=== PATIENT | male | born 1965 | race Caucasian/White ===

== ENCOUNTER 2017-02-06 22:41 | Emergency (ER) | payer SELFPAY ==
[~2017-02-06] VITALS: Ht 177.8 cm; Wt 95.5 kg
[2017-02-06] MEDS ORDERED: HYDROmorphone 1 MG/ML, 1ML ONE (23:08)
[2017-02-06] MEDS ORDERED: KETOROLAC 30 MG/1 ML ONE (23:09)
[2017-02-06] MEDS ORDERED: KETOROLAC 30 MG/1 ML IV ONE (23:30)
[2017-02-06] MEDS ORDERED: PLEASE ENTER ALLERGIES MC SCH ×2 (23:30)
[2017-02-06] MEDS ORDERED: HYDROmorphone 1 MG/ML, 1ML IVPush PRN (23:30)
[2017-02-07 00:49] VITALS: BP 116/76
== END 2017-02-07 01:23 | disposition home or self-care (01) ==
LOC: ED 23:52
DX: S16.1XXA Strain of muscle, fascia and tendon at neck level, initial encounter (principal); S29.012A Strain of muscle and tendon of back wall of thorax, initial encounter; S39.012A Strain of muscle, fascia and tendon of lower back, initial encounter; Z86.73 Personal history of transient ischemic attack (TIA), and cerebral infarction without residual deficits; I25.2 Old myocardial infarction; X58.XXXA Exposure to other specified factors, initial encounter; Y93.89 Activity, other specified; Y99.8 Other external cause status; Y92.89 Other specified places as the place of occurrence of the external cause
CPT/HCPCS: 72125; 72131; 99284

== ENCOUNTER 2017-02-12 03:56 | Emergency (ER) | payer OTHER ==
[~2017-02-12] VITALS: Ht 180.3 cm; Wt 87.4 kg
[2017-02-12] MEDS ORDERED: KETOROLAC 30 MG/1 ML IM ONE (05:00)
[2017-02-12] MEDS ORDERED: KETOROLAC 30 MG/1 ML ONE (05:03)
[2017-02-12 05:37] VITALS: BP 150/84
== END 2017-02-12 05:39 | disposition home or self-care (01) ==
LOC: ED 05:09
DX: Z76.0 Encounter for issue of repeat prescription (principal); M1A.9XX0 Chronic gout, unspecified, without tophus (tophi); M13.0 Polyarthritis, unspecified; Z86.73 Personal history of transient ischemic attack (TIA), and cerebral infarction without residual deficits
CPT/HCPCS: 96372; 99283; J1885

== ENCOUNTER 2017-11-23 04:49 | Inpatient (IN) | payer MEDICAID, OTHER ==
[~2017-11-23] VITALS: Ht 180.3 cm; Wt 90.0 kg
[2017-11-23] MEDS ORDERED: SODIUM CHLORIDE 0.9% 1,000 ML IV ONE (05:14)
[2017-11-23] MEDS ORDERED: SODIUM CHLORIDE FLUSH 10ML SYR IVF ONE (05:30)
[2017-11-23] MEDS ORDERED: MORPHINE SULFATE 4 MG/ML, 1ML ONE ×2 (06:18→07:29)
[2017-11-23] MEDS: MORPHINE SULFATE 4 MG/ML, 1ML IVPush PRN ×2 (06:22→07:33)
[2017-11-23 06:38] LABS: BASOPHILS # (AUTO) 0.05 x10^3/uL (0-0.1); BASOPHILS % (AUTO) 1 % (0-1); EOSINOPHILS # (AUTO) 0.07 x10^3/uL (0-0.4); EOSINOPHILS % (AUTO) 1 % (1-7); LYMPHOCYTES # (AUTO) 1.68 x10^3/uL (1-3.4); LYMPHOCYTES % (AUTO) 16 % (22-44); MD NO; MEAN CORPUSCULAR HEMOGLOBIN 33.7 pg (27.5-34.5); MEAN CORPUSCULAR HGB CONC 34.1 g/dL (33.2-36.2); MEAN CORPUSCULAR VOLUME 98.8 fL (81-97); MEAN PLATELET VOLUME 7.7 fL (7.4-10.4); MONOCYTES # (AUTO) 1.23 x10^3/uL (0.2-0.8); MONOCYTES % (AUTO) 11 % (2-9); NEUTROPHILS # (AUTO) 7.83 x10^3/uL (1.8-6.8); NEUTROPHILS % (AUTO) 72 % (42-75); PLATELET COUNT 195 x10^3/uL (130-400); RED BLOOD COUNT 4.58 x10^6/uL (4.38-5.82); RED CELL DISTRIBUTION WIDTH 14.7 % (9.4-14.8)
[2017-11-23 06:49] LABS: ALBUMIN 3.1 g/dL (3.4-5.0); ANION GAP 12 mmol/L (5-15); CALCIUM 8.8 mg/dL (8.5-10.1); CHLORIDE 99 mmol/L (98-107)
[2017-11-23 06:52] LABS: CREATININE 0.75 mg/dL (0.7-1.3)
[2017-11-23 06:53] LABS: ALANINE AMINOTRANSFERASE 33 U/L (12-78); ALKALINE PHOSPHATASE 119 U/L (45-117); BILIRUBIN,TOTAL 1.7 mg/dL (0.2-1.0); TOTAL PROTEIN 7.8 g/dL (6.4-8.2)
[2017-11-23] MEDS ORDERED: GADOBUTROL 7.5 MMOL/7.5 ML PFS ONE (07:13)
[2017-11-23 07:16] LABS: HCT (SEDRATE) 45.3 % (39.2-51.8)
[2017-11-23] MEDS ORDERED: AMPICILLIN/SULBACTAM 3 GM in SODIUM CHLORIDE 0.9% 100 ML IV ONE (09:00)
[2017-11-23 09:29] VITALS: BP 158/98
[2017-11-23 10:52] VITALS: BP 158/98
[2017-11-23] MEDS ORDERED: LABETALOL 5MG/ML, 20ML IVPush PRN (12:00)
[2017-11-23] MEDS ORDERED: ENALAPRILAT 1.25 MG/ML, 2ML IVPush PRN (12:00)
[2017-11-23] MEDS ORDERED: ACETAMINOPHEN 325 MG TABLET PO PRN (12:00)
[2017-11-23] MEDS ORDERED: LORazepam 2 MG/ML, 1ML IVPush ONE (12:00)
[2017-11-23] MEDS: NICOTINE 14MG/24 HR PATCH.TD24 TD SCH (12:22)
[2017-11-23] MEDS: HYDROcodone/APAP 5/325 TABLET PO PRN (13:18)
[2017-11-23 14:18] VITALS: BP 130/83
[2017-11-23] MEDS ORDERED: ALLO100T30 PO (14:38)
[2017-11-23] MEDS ORDERED: LISI-424 PO (14:38)
[2017-11-23] MEDS ORDERED: AMPICILLIN/SULBACTAM 3 GM in SODIUM CHLORIDE 0.9% 100 ML IV SCH (15:00)
[2017-11-23] MEDS ORDERED: KETOROLAC 30 MG/1 ML IVPush PRN (16:30)
[2017-11-23 16:44] LABS: CHOL/HDL RATIO 3.7; LDL/HDL RATIO 2.2 (0.5-3.0)
[2017-11-23] MEDS: METHOCARBAMOL 750 MG TABLET PO SCH ×2 (16:44→22:09)
[2017-11-23] MEDS: AMPICILLIN/SULBACTAM 3 GM in SODIUM CHLORIDE 0.9% 100 ML IV SCH (18:21)
[2017-11-23 18:42] VITALS: BP 117/77
[2017-11-23 18:57] LABS: AMPHETAMINE SCREEN, URINE Negative (Negative); BARBITURATE SCREEN, URINE Negative (Negative); BENZODIAZEPINE SCREEN, URINE Negative (Negative); CANNABINOID SCREEN, URINE Negative (Negative); COCAINE SCREEN, URINE Negative (Negative); METHADONE SCREEN, URINE Negative (Negative); OPIATE SCREEN, URINE Positive (Negative)
[2017-11-23] MEDS ORDERED: DOCUSATE 50 MG/5 ML, 10ML UDC PO PRN (22:00)
[2017-11-23 22:48] LABS: PROTHROMBIN TIME 10.4 Seconds (9.6-11.5)
[2017-11-24] MEDS: AMPICILLIN/SULBACTAM 3 GM in SODIUM CHLORIDE 0.9% 100 ML IV SCH (01:14)
[2017-11-24 01:23] VITALS: BP 127/83
[2017-11-24] MEDS: HYDROcodone/APAP 5/325 TABLET PO PRN ×4 (01:43→21:02)
[2017-11-24 05:51] LABS: BASOPHILS # (AUTO) 0.01 x10^3/uL (0-0.1); BASOPHILS % (AUTO) 0 % (0-1); EOSINOPHILS # (AUTO) 0.11 x10^3/uL (0-0.4); EOSINOPHILS % (AUTO) 1 % (1-7); LYMPHOCYTES # (AUTO) 1.58 x10^3/uL (1-3.4); LYMPHOCYTES % (AUTO) 20 % (22-44); MD NO; MEAN CORPUSCULAR HEMOGLOBIN 32.9 pg (27.5-34.5); MEAN CORPUSCULAR HGB CONC 33.5 g/dL (33.2-36.2); MEAN CORPUSCULAR VOLUME 98.2 fL (81-97); MEAN PLATELET VOLUME 7.5 fL (7.4-10.4); MONOCYTES % (AUTO) 12 % (2-9); NEUTROPHILS # (AUTO) 5.39 x10^3/uL (1.8-6.8); NEUTROPHILS % (AUTO) 67 % (42-75); PLATELET COUNT 224 x10^3/uL (130-400); RED BLOOD COUNT 4.27 x10^6/uL (4.38-5.82); RED CELL DISTRIBUTION WIDTH 14.3 % (9.4-14.8)
[2017-11-24 05:55] LABS: ANION GAP 9 mmol/L (5-15); CALCIUM 8.5 mg/dL (8.5-10.1); CHLORIDE 102 mmol/L (98-107)
[2017-11-24 05:58] LABS: CREATININE 0.82 mg/dL (0.7-1.3)
[2017-11-24 07:35] VITALS: BP 120/85
[2017-11-24] MEDS ORDERED: MIDAZOLAM 1 MG/ML, 5ML ONE (08:12)
[2017-11-24] MEDS ORDERED: NALOXONE 1 MG/ML, 2ML ONE (08:12)
[2017-11-24] MEDS ORDERED: FLUMAZENIL 0.1 MG/1 ML, 5ML ONE (08:12)
[2017-11-24] MEDS ORDERED: FENTANYL PF 100 MCG/2ML ONE (08:12)
[2017-11-24] MEDS ORDERED: LISINOPRIL 5 MG TABLET PO SCH (09:00)
[2017-11-24] MEDS ORDERED: ALLOPURINOL 100 MG TABLET PO SCH (09:00)
[2017-11-24] MEDS ORDERED: GADOBUTROL 10 MMOL/10 ML VIAL ONE (09:44)
[2017-11-24 10:20] VITALS: BP 118/84
[2017-11-24] MEDS: METHOCARBAMOL 750 MG TABLET PO SCH ×3 (11:24→21:01)
[2017-11-24] MEDS: NICOTINE 14MG/24 HR PATCH.TD24 TD SCH (11:24)
[2017-11-24] MEDS: COLCHICINE 0.6 MG TABLET PO SCH ×3 (11:53→21:01)
[2017-11-24] MEDS: CEPHALEXIN 500 MG CAPSULE PO SCH ×3 (11:53→23:18)
[2017-11-24 13:02] VITALS: BP 117/89
[2017-11-24 19:09] VITALS: BP 164/68
[2017-11-25 00:13] VITALS: BP 130/90
[2017-11-25 00:24] VITALS: BP 115/71
[2017-11-25] MEDS: HYDROcodone/APAP 5/325 TABLET PO PRN ×2 (01:52→05:51)
[2017-11-25 04:07] VITALS: BP 102/62
[2017-11-25] MEDS: CEPHALEXIN 500 MG CAPSULE PO SCH ×2 (05:50→11:49)
[2017-11-25 07:39] VITALS: BP 115/80
[2017-11-25] MEDS ORDERED: LOSA50TA2 PO (08:34)
[2017-11-25] MEDS ORDERED: COLC0.6T37 PO (08:34)
[2017-11-25] MEDS ORDERED: METH750T2 PO (08:34)
[2017-11-25] MEDS ORDERED: ALLO100T30 PO (08:34)
[2017-11-25] MEDS ORDERED: CEPH-376 PO (08:34)
[2017-11-25] MEDS ORDERED: LOSARTAN 50MG TABLET PO SCH (09:00)
[2017-11-25] MEDS: COLCHICINE 0.6 MG TABLET PO SCH (09:52)
[2017-11-25] MEDS: METHOCARBAMOL 750 MG TABLET PO SCH (09:52)
[2017-11-25] MEDS ORDERED: SIMV20TA3 PO (10:04)
[2017-11-25] MEDS: NICOTINE 14MG/24 HR PATCH.TD24 TD SCH (11:50)
[2017-11-25 14:55] VITALS: BP 132/80
[2017-11-25] MEDS ORDERED: SIMVASTATIN 20 MG TABLET PO SCH (21:00)
[2017-11-25] MEDS ORDERED: LISINOPRIL 5 MG TABLET PO SCH (21:00)
== END 2017-11-25 17:28 | disposition home or self-care (01) | DRG 872 ==
LOC: ED 08:08 → 3NE 08:09 → ED 08:31
PROVIDERS: ADMIT Hospitalist; ATTEND Internal Medicine
DX: A41.9 Sepsis, unspecified organism (principal); E44.0 Moderate protein-calorie malnutrition; E87.1 Hypo-osmolality and hyponatremia; G95.89 Other specified diseases of spinal cord; L03.113 Cellulitis of right upper limb; R17 Unspecified jaundice; M51.06 Intervertebral disc disorders with myelopathy, lumbar region; Z68.27 Body mass index [BMI] 27.0-27.9, adult; F17.210 Nicotine dependence, cigarettes, uncomplicated; G89.29 Other chronic pain; M50.30 Other cervical disc degeneration, unspecified cervical region; I25.2 Old myocardial infarction; I10 Essential (primary) hypertension; M17.12 Unilateral primary osteoarthritis, left knee; M1A.9XX1 Chronic gout, unspecified, with tophus (tophi); M25.78 Osteophyte, vertebrae; M48.02 Spinal stenosis, cervical region; M48.061 Spinal stenosis, lumbar region without neurogenic claudication; Z74.01 Bed confinement status; Z83.3 Family history of diabetes mellitus; Z86.73 Personal history of transient ischemic attack (TIA), and cerebral infarction without residual deficits; Z91.19 Patient's noncompliance with other medical treatment and regimen; Z98.1 Arthrodesis status; Z80.41 Family history of malignant neoplasm of ovary
CPT/HCPCS: 36415; 72050; 72156; 72157; 72158; 80048; 80053; 80061; 80307; 83605; 84550; 85025; 85610; 85651; 85730; 86140; 87040; 93005; 96374; 96376; 99156; 99157; 99285; A9585; J0295; J1885; J2250; J3010; J2060; J2310; J7030

== ENCOUNTER 2017-12-09 17:28 | Emergency (ER) | payer SELFPAY ==
[~2017-12-09] VITALS: Ht 180.3 cm; Wt 85.7 kg
[~2017-12-09 17:28] MED LIST: ALLO100T30 PO; CEPH-376 PO; COLC0.6T37 PO; LISI-424 PO; LOSA50TA2 PO; METH750T2 PO; SIMV20TA3 PO
[2017-12-09 17:31] VITALS: BP 151/93
== END 2017-12-09 18:31 | disposition home or self-care (01) ==
LOC: ED 18:25
DX: G89.29 Other chronic pain (principal); M54.2 Cervicalgia; M10.9 Gout, unspecified; M25.531 Pain in right wrist; Z86.73 Personal history of transient ischemic attack (TIA), and cerebral infarction without residual deficits; I25.2 Old myocardial infarction
CPT/HCPCS: 99281

== ENCOUNTER 2017-12-16 18:06 | Inpatient (IN) | payer SELFPAY ==
[2017-12-15 14:00] VITALS: BP 149/92
[~2017-12-16] VITALS: Ht 180.3 cm; Wt 88.6 kg
[2017-12-16] MEDS ORDERED: KETOROLAC 30 MG/1 ML ONE (18:54)
[2017-12-16 18:59] LABS: BASOPHILS # (AUTO) 0.07 x10^3/uL (0-0.1); BASOPHILS % (AUTO) 1 % (0-1); EOSINOPHILS # (AUTO) 0.13 x10^3/uL (0-0.4); EOSINOPHILS % (AUTO) 2 % (1-7); LYMPHOCYTES # (AUTO) 1.51 x10^3/uL (1-3.4); LYMPHOCYTES % (AUTO) 19 % (22-44); MD NO; MEAN CORPUSCULAR HEMOGLOBIN 33.6 pg (27.5-34.5); MEAN CORPUSCULAR VOLUME 95.9 fL (81-97); MEAN PLATELET VOLUME 7.5 fL (7.4-10.4); MONOCYTES # (AUTO) 0.58 x10^3/uL (0.2-0.8); MONOCYTES % (AUTO) 7 % (2-9); NEUTROPHILS # (AUTO) 5.55 x10^3/uL (1.8-6.8); NEUTROPHILS % (AUTO) 71 % (42-75); PLATELET COUNT 161 x10^3/uL (130-400); RED BLOOD COUNT 4.61 x10^6/uL (4.38-5.82); RED CELL DISTRIBUTION WIDTH 14.4 % (9.4-14.8)
[2017-12-16] MEDS ORDERED: SODIUM CHLORIDE FLUSH 10ML SYR IVF ONE (19:00)
[2017-12-16] MEDS ORDERED: AMPICILLIN/SULBACTAM 3 GM in SODIUM CHLORIDE 0.9% 100 ML IVPB ONE (19:00)
[2017-12-16] MEDS ORDERED: KETOROLAC 30 MG/1 ML IVPush ONE (19:00)
[2017-12-16 19:08] LABS: ALBUMIN 3.3 g/dL (3.4-5.0); ANION GAP 10 mmol/L (5-15); CALCIUM 8.7 mg/dL (8.5-10.1); CHLORIDE 104 mmol/L (98-107); CREATININE 0.92 mg/dL (0.7-1.3)
[2017-12-16] MEDS ORDERED: COLCHICINE 0.6 MG TABLET PO ONE (19:30)
[2017-12-16 21:30] VITALS: BP 142/100
[2017-12-16] MEDS: NICOTINE 21 MG/24 HR PATCH.TD24 TD SCH (21:30)
[2017-12-16] MEDS ORDERED: ONDANSETRON 2MG/ML, 2ML IVPush PRN (21:30)
[2017-12-16] MEDS ORDERED: POLYETHYLENE GLYCOL 17 GM PACKET PO PRN (21:30)
[2017-12-16] MEDS ORDERED: ACETAMINOPHEN 325 MG TABLET PO PRN (21:30)
[2017-12-16] MEDS ORDERED: POTASSIUM CHLORIDE 20 MEQ TAB.ER.PRT PO ONE (21:30)
[2017-12-16] MEDS ORDERED: BISACODYL 10 MG SUPP PR PRN (21:30)
[2017-12-16] MEDS: SODIUM CHLORIDE FLUSH 10ML SYR IVF SCH (22:41)
[2017-12-16] MEDS: SIMVASTATIN 20 MG TABLET PO SCH (22:42)
[2017-12-16] MEDS: morphine SULFATE 10 MG/ML, 1ML IVPush PRN (22:42)
[2017-12-16] MEDS: HEPARIN 5,000 UNITS/ML, 1ML SQ SCH (22:42)
[2017-12-16 23:14] VITALS: BP 142/100
[2017-12-17] MEDS: AMPICILLIN/SULBACTAM 3 GM in SODIUM CHLORIDE 0.9% 100 ML IV SCH ×4 (00:31→18:10)
[2017-12-17 03:40] VITALS: BP 160/107
[2017-12-17 04:25] LABS: BASOPHILS # (AUTO) 0.01 x10^3/uL (0-0.1); BASOPHILS % (AUTO) 0 % (0-1); EOSINOPHILS % (AUTO) 0 % (1-7); LYMPHOCYTES # (AUTO) 0.55 x10^3/uL (1-3.4); LYMPHOCYTES % (AUTO) 10 % (22-44); MD NO; MEAN CORPUSCULAR VOLUME 97.2 fL (81-97); MEAN PLATELET VOLUME 7.8 fL (7.4-10.4); MONOCYTES # (AUTO) 0.14 x10^3/uL (0.2-0.8); MONOCYTES % (AUTO) 2 % (2-9); NEUTROPHILS # (AUTO) 4.94 x10^3/uL (1.8-6.8); NEUTROPHILS % (AUTO) 88 % (42-75); PLATELET COUNT 150 x10^3/uL (130-400); RED BLOOD COUNT 4.54 x10^6/uL (4.38-5.82); RED CELL DISTRIBUTION WIDTH 14.2 % (9.4-14.8)
[2017-12-17] MEDS: morphine SULFATE 10 MG/ML, 1ML IVPush PRN ×2 (04:27→09:11)
[2017-12-17 04:56] LABS: ALANINE AMINOTRANSFERASE 29 U/L (12-78); ALKALINE PHOSPHATASE 127 U/L (45-117); BILIRUBIN,TOTAL 1.2 mg/dL (0.2-1.0); CREATININE 0.95 mg/dL (0.7-1.3); TOTAL PROTEIN 7.7 g/dL (6.4-8.2)
[2017-12-17 05:17] LABS: ALBUMIN 3.2 g/dL (3.4-5.0); ANION GAP 5 mmol/L (5-15); CALCIUM 8.8 mg/dL (8.5-10.1); CHLORIDE 105 mmol/L (98-107)
[2017-12-17 08:00] VITALS: BP 141/96
[2017-12-17] MEDS: SODIUM CHLORIDE FLUSH 10ML SYR IVF SCH ×2 (09:00→19:32)
[2017-12-17] MEDS: ALLOPURINOL 300 MG TABLET PO SCH (09:10)
[2017-12-17] MEDS: COLCHICINE 0.6 MG TABLET PO SCH ×2 (09:10→19:30)
[2017-12-17] MEDS: SENNA/DOCUSATE TABLET PO SCH (09:10)
[2017-12-17] MEDS: LOSARTAN 50MG TABLET PO SCH (09:10)
[2017-12-17] MEDS: HEPARIN 5,000 UNITS/ML, 1ML SQ SCH ×3 (09:11→22:40)
[2017-12-17] MEDS ORDERED: GADOBUTROL 10 MMOL/10 ML PFS ONE (11:13)
[2017-12-17 14:00] VITALS: BP 138/84
[2017-12-17 19:03] VITALS: BP 146/85
[2017-12-17] MEDS: NICOTINE 21 MG/24 HR PATCH.TD24 TD SCH (19:30)
[2017-12-17] MEDS: SIMVASTATIN 20 MG TABLET PO SCH (19:30)
[2017-12-17] MEDS: HYDROcodone/APAP 5/325 TABLET PO PRN (19:30)
[2017-12-18] MEDS: AMPICILLIN/SULBACTAM 3 GM in SODIUM CHLORIDE 0.9% 100 ML IV SCH ×4 (00:22→18:08)
[2017-12-18 01:21] VITALS: BP 170/95
[2017-12-18] MEDS: HYDROcodone/APAP 5/325 TABLET PO PRN ×3 (02:30→21:11)
[2017-12-18] MEDS: ASPIRIN 81 MG TABLET EC PO SCH (05:07)
[2017-12-18 07:12] VITALS: BP 159/106
[2017-12-18] MEDS: HEPARIN 5,000 UNITS/ML, 1ML SQ SCH ×3 (08:11→21:11)
[2017-12-18] MEDS: LOSARTAN 50MG TABLET PO SCH (08:11)
[2017-12-18] MEDS: SENNA/DOCUSATE TABLET PO SCH (08:11)
[2017-12-18] MEDS: ALLOPURINOL 300 MG TABLET PO SCH (08:11)
[2017-12-18] MEDS: COLCHICINE 0.6 MG TABLET PO SCH ×2 (08:11→21:11)
[2017-12-18] MEDS: SODIUM CHLORIDE FLUSH 10ML SYR IVF SCH ×2 (08:11→21:00)
[2017-12-18 12:09] VITALS: BP 159/106
[2017-12-18] MEDS: METOPROLOL TARTRATE 25 MG TABLET PO SCH ×2 (12:35→18:08)
[2017-12-18] MEDS: METHOCARBAMOL 500 MG TABLET PO PRN ×2 (12:35→18:08)
[2017-12-18 19:06] VITALS: BP 134/83
[2017-12-18] MEDS: NICOTINE 21 MG/24 HR PATCH.TD24 TD SCH (21:11)
[2017-12-18] MEDS: SIMVASTATIN 20 MG TABLET PO SCH (21:11)
[2017-12-19] VITALS (8 sets, daily range): BP systolic 153–192; BP diastolic 100–110
[2017-12-19] MEDS: AMPICILLIN/SULBACTAM 3 GM in SODIUM CHLORIDE 0.9% 100 ML IV SCH ×2 (01:23→06:34)
[2017-12-19] MEDS: METHOCARBAMOL 500 MG TABLET PO PRN (01:27)
[2017-12-19] MEDS: HYDROcodone/APAP 5/325 TABLET PO PRN ×2 (02:14→08:20)
[2017-12-19] MEDS ORDERED: AMLODIPINE 5 MG TABLET PO ONE (03:30)
[2017-12-19] MEDS: ASPIRIN 81 MG TABLET EC PO SCH (05:14)
[2017-12-19] MEDS: METOPROLOL TARTRATE 25 MG TABLET PO SCH (05:14)
[2017-12-19] MEDS: HEPARIN 5,000 UNITS/ML, 1ML SQ SCH (05:15)
[2017-12-19] MEDS: morphine SULFATE 10 MG/ML, 1ML IVPush PRN (05:25)
[2017-12-19] MEDS: LOSARTAN 50MG TABLET PO SCH (06:34)
[2017-12-19] MEDS ORDERED: HYDR-3240 PO (07:49)
[2017-12-19] MEDS ORDERED: ALLO100T30 PO (07:49)
[2017-12-19] MEDS ORDERED: AMOX1TAB64 PO (07:49)
[2017-12-19] MEDS ORDERED: METO25TA2 PO (07:49)
[2017-12-19] MEDS ORDERED: COLC0.6T37 PO (07:49)
[2017-12-19] MEDS ORDERED: LOSA50TA2 PO (07:49)
[2017-12-19] MEDS ORDERED: SIMV20TA3 PO (07:49)
[2017-12-19] MEDS ORDERED: IBUP-1222 PO (07:53)
[2017-12-19] MEDS: SENNA/DOCUSATE TABLET PO SCH (08:20)
[2017-12-19] MEDS: SODIUM CHLORIDE FLUSH 10ML SYR IVF SCH (08:21)
[2017-12-19] MEDS: ALLOPURINOL 300 MG TABLET PO SCH (08:21)
[2017-12-19] MEDS: COLCHICINE 0.6 MG TABLET PO SCH (08:21)
[2017-12-19] MEDS ORDERED: LOSARTAN 50MG TABLET PO SCH (09:00)
== END 2017-12-19 10:54 | disposition home or self-care (01) | DRG 603 ==
LOC: ED 20:19 → EDIP 20:48 → 3NE 21:23
PROVIDERS: ADMIT Internal Medicine; ATTEND Internal Medicine
DX: L03.113 Cellulitis of right upper limb (principal); E44.1 Mild protein-calorie malnutrition; M19.90 Unspecified osteoarthritis, unspecified site; I25.2 Old myocardial infarction; M1A.9XX1 Chronic gout, unspecified, with tophus (tophi); F17.210 Nicotine dependence, cigarettes, uncomplicated; M48.00 Spinal stenosis, site unspecified; I10 Essential (primary) hypertension; I25.10 Atherosclerotic heart disease of native coronary artery without angina pectoris; Z60.2 Problems related to living alone; E87.6 Hypokalemia; R00.0 Tachycardia, unspecified; M10.9 Gout, unspecified; Z86.73 Personal history of transient ischemic attack (TIA), and cerebral infarction without residual deficits; Z83.3 Family history of diabetes mellitus; Z79.899 Other long term (current) drug therapy; Z68.27 Body mass index [BMI] 27.0-27.9, adult
CPT/HCPCS: 36415; 80048; 80053; 82040; 84550; 85025; 87040; 96365; 96375; A9585; J0295; J1644; J1885; J2270; J7512

== ENCOUNTER 2018-01-14 21:12 | Emergency (ER) | payer SELFPAY ==
[~2018-01-14] VITALS: Ht 180.3 cm; Wt 79.5 kg
[~2018-01-14 21:12] MED LIST changes: +AMOX1TAB64 PO; +HYDR-3240 PO; +IBUP-1222 PO; +METO25TA2 PO
[2018-01-15 01:44] VITALS: BP 108/81
== END 2018-01-15 02:35 | disposition home or self-care (01) ==
LOC: ED 23:59
DX: F10.129 Alcohol abuse with intoxication, unspecified (principal); I25.2 Old myocardial infarction; Z86.73 Personal history of transient ischemic attack (TIA), and cerebral infarction without residual deficits; M19.90 Unspecified osteoarthritis, unspecified site; F17.200 Nicotine dependence, unspecified, uncomplicated
CPT/HCPCS: 99283

== ENCOUNTER 2018-02-06 04:27 | Emergency (ER) | payer MEDICAID, OTHER ==
[~2018-02-06] VITALS: Ht 180.3 cm; Wt 91.9 kg
[2018-02-06] MEDS ORDERED: ONDANSETRON ODT 4 MG PO ONE (05:00)
[2018-02-06] MEDS ORDERED: ONDANSETRON ODT 4 MG ONE (05:30)
[2018-02-06 05:35] LABS: BASOPHILS # (AUTO) 0.05 x10^3/uL (0-0.1); BASOPHILS % (AUTO) 1 % (0-1); EOSINOPHILS # (AUTO) 0.34 x10^3/uL (0-0.4); EOSINOPHILS % (AUTO) 4 % (1-7); LYMPHOCYTES # (AUTO) 3.06 x10^3/uL (1-3.4); LYMPHOCYTES % (AUTO) 38 % (22-44); MD NO; MEAN CORPUSCULAR HEMOGLOBIN 34.1 pg (27.5-34.5); MEAN CORPUSCULAR HGB CONC 34.1 g/dL (33.2-36.2); MEAN PLATELET VOLUME 7.4 fL (7.4-10.4); MONOCYTES # (AUTO) 0.53 x10^3/uL (0.2-0.8); MONOCYTES % (AUTO) 7 % (2-9); NEUTROPHILS # (AUTO) 3.99 x10^3/uL (1.8-6.8); NEUTROPHILS % (AUTO) 50 % (42-75); PLATELET COUNT 208 x10^3/uL (130-400); RED BLOOD COUNT 3.98 x10^6/uL (4.38-5.82); RED CELL DISTRIBUTION WIDTH 15.8 % (9.4-14.8)
[2018-02-06 05:46] LABS: ANION GAP 13 mmol/L (5-15); CALCIUM 8.7 mg/dL (8.5-10.1); CHLORIDE 104 mmol/L (98-107); CREATININE 0.85 mg/dL (0.7-1.3)
[2018-02-06] MEDS ORDERED: SODIUM CHLORIDE 0.9% 1,000ML IVBOLUS ONE (06:30)
[2018-02-06] MEDS ORDERED: SODIUM CHLORIDE FLUSH 10ML SYR IVF ONE (06:30)
[2018-02-06] MEDS ORDERED: IBUPROFEN 200 MG TABLET PO ONE (08:00)
[2018-02-06] MEDS ORDERED: IBUPROFEN 200 MG TABLET ONE (08:10)
[2018-02-06 09:07] VITALS: BP 120/76
== END 2018-02-06 09:41 | disposition home or self-care (01) ==
LOC: ED 06:12
DX: S39.012A Strain of muscle, fascia and tendon of lower back, initial encounter (principal); F10.220 Alcohol dependence with intoxication, uncomplicated; R19.7 Diarrhea, unspecified; R11.0 Nausea; Z88.5 Allergy status to narcotic agent; Z86.73 Personal history of transient ischemic attack (TIA), and cerebral infarction without residual deficits; X58.XXXA Exposure to other specified factors, initial encounter; Y93.89 Activity, other specified; Y92.89 Other specified places as the place of occurrence of the external cause; Y99.8 Other external cause status
CPT/HCPCS: 36415; 80048; 80307; 85025; 96360; 99284; J7030; Q0162

== ENCOUNTER 2018-02-25 21:54 | Emergency (ER) | payer OTHER ==
[~2018-02-25] VITALS: Ht 180.3 cm; Wt 83.7 kg
[2018-02-26 04:00] VITALS: BP 105/68
== END 2018-02-26 04:44 | disposition home or self-care (01) ==
LOC: ED 21:59
DX: F10.220 Alcohol dependence with intoxication, uncomplicated (principal); I25.2 Old myocardial infarction; F17.200 Nicotine dependence, unspecified, uncomplicated; Z86.73 Personal history of transient ischemic attack (TIA), and cerebral infarction without residual deficits
CPT/HCPCS: 99283

== ENCOUNTER 2018-08-08 02:48 | Emergency (ER) | payer MEDICAID ==
[~2018-08-08] VITALS: Ht 180.3 cm; Wt 93.0 kg
--- NOTE | 2018-08-08 02:58 | NUR ---
bib [facility] for joint pain from hips down, h/x gout, received 100 fentanyl and 1 versed per emt. fsbs-118, b/p-131/87, hr-90, 98% r/a. monitors applied, siderails up x2, call light within reach. pa at bedside for eval
[2018-08-08] MEDS ORDERED: METO200T47 PO (02:59)
[2018-08-08] MEDS ORDERED: KETOROLAC 30 MG/1 ML ONE (03:09)
--- NOTE | 2018-08-08 03:18 | NUR ---
pt medicated per mar
[2018-08-08 03:20] VITALS: BP 143/98
--- NOTE | 2018-08-08 03:23 | NUR ---
smh at bed side given report
--- NOTE | 2018-08-08 03:25 | NUR ---
pt requesting to speak with md, juan notified and at pt's bedside
[2018-08-08] MEDS ORDERED: KETOROLAC 30 MG/1 ML IM ONE (03:30)
== END 2018-08-08 03:34 | disposition home or self-care (01) ==
LOC: ED 02:51
DX: M25.551 Pain in right hip (principal); M25.561 Pain in right knee; M25.571 Pain in right ankle and joints of right foot; M25.552 Pain in left hip; M25.562 Pain in left knee; M25.572 Pain in left ankle and joints of left foot; F17.210 Nicotine dependence, cigarettes, uncomplicated; I25.2 Old myocardial infarction
CPT/HCPCS: 96372; 99283; J1885; J7512

== ENCOUNTER 2018-08-19 15:43 | Emergency (ER) | payer MEDICAID ==
[~2018-08-19] VITALS: Ht 180.3 cm; Wt 89.3 kg
[~2018-08-19 15:43] MED LIST changes: +METO200T47 PO
[2018-08-19] MEDS ORDERED: SODIUM CHLORIDE FLUSH 10ML SYR IVF ONE (16:00)
[2018-08-19] MEDS ORDERED: SODIUM CHLORIDE 0.9% 1,000ML IVBOLUS ONE (16:00)
--- NOTE | 2018-08-19 16:28 | NUR ---
PT PRESENTING TO ER FOR STERNAL CP TIGHTNESS X2 DAYS WITH PRODUCTIVE COUGH AND SOB. PT ADMITTED 3 MONTHS AGO FOR PNA, STATES FEELS SIMILAR. COMMECTED TO ALL MONITORING, RAPID RESP RATE AND TACHY. MD ORDERS RECEIVED. RAD COMPLETED, LABS COLLECTED, IV PLACED AND PT MEDICATED PER JUN. CALL LIGHT WITHIN REACH.
[2018-08-19 16:31] LABS: BASOPHILS # (AUTO) 0.05 x10^3/uL (0-0.1); BASOPHILS % (AUTO) 1 % (0-1); EOSINOPHILS % (AUTO) 2 % (1-7); LYMPHOCYTES # (AUTO) 2.46 x10^3/uL (1-3.4); LYMPHOCYTES % (AUTO) 23 % (22-44); MD NO; MEAN CORPUSCULAR HEMOGLOBIN 30.5 pg (27.5-34.5); MEAN CORPUSCULAR HGB CONC 33.2 g/dL (33.2-36.2); MEAN CORPUSCULAR VOLUME 91.8 fL (81-97); MEAN PLATELET VOLUME 7.9 fL (7.4-10.4); MONOCYTES # (AUTO) 0.41 x10^3/uL (0.2-0.8); MONOCYTES % (AUTO) 4 % (2-9); NEUTROPHILS # (AUTO) 7.38 x10^3/uL (1.8-6.8); NEUTROPHILS % (AUTO) 70 % (42-75); PLATELET COUNT 230 x10^3/uL (130-400); RED BLOOD COUNT 4.79 x10^6/uL (4.38-5.82); RED CELL DISTRIBUTION WIDTH 14.9 % (9.4-14.8)
[2018-08-19 16:43] LABS: ALBUMIN 3.6 g/dL (3.4-5.0); ANION GAP 7 mmol/L (5-15); CALCIUM 8.7 mg/dL (8.5-10.1); CHLORIDE 106 mmol/L (98-107); CREATININE 0.91 mg/dL (0.7-1.3)
[2018-08-19 16:48] LABS: TROPONIN I < 0.015 ng/mL (0.000-0.045)
[2018-08-19 17:24] VITALS: BP 148/95
== END 2018-08-19 17:26 | disposition home or self-care (01) ==
LOC: ED 16:43
DX: J43.9 Emphysema, unspecified (principal); R07.2 Precordial pain; I25.2 Old myocardial infarction; M19.90 Unspecified osteoarthritis, unspecified site; I10 Essential (primary) hypertension; Z86.73 Personal history of transient ischemic attack (TIA), and cerebral infarction without residual deficits; Z72.9 Problem related to lifestyle, unspecified
CPT/HCPCS: 36415; 71045; 80048; 82040; 83605; 83880; 84484; 85025; 85379; 93005; 99284; J7030; J7512

== ENCOUNTER 2018-08-21 20:31 | Emergency (ER) | payer MEDICAID ==
[~2018-08-21] VITALS: Ht 180.3 cm; Wt 88.2 kg
--- NOTE | 2018-08-21 21:10 | NUR ---
PT HERE FOR INCREASED RESP DISTRESS AND COUGHING PAIN. PT DENIES ANY MEDICAL PROBLEMS OR RESP HX. PT ON ARRIVAL HAS COARSE AND DIMINISHED LUNG SOUNDS. PT CONNECTED TO MONITORS AND CALL LIGHT IN REACH. AWAITING FURTHER ORDER.
[2018-08-21 21:18] VITALS: BP 125/87
[2018-08-21] MEDS ORDERED: ALBUTEROL/IPRATROPIUM 2.5MG/0.5MG, 3 ML NPPB ONE (21:30)
[2018-08-21] MEDS ORDERED: ALBUTEROL/IPRATROPIUM 2.5MG/0.5MG, 3 ML NPPB SCH (21:30)
--- NOTE | 2018-08-21 21:32 | NUR ---
PT MEDICATED PER EMAR.
--- NOTE | 2018-08-21 21:49 | NUR ---
Patient/Caregiver given discharge instructions and they have confirmed that they understand the instructions. Patient ambulatory with steady gait.
[2018-08-21] MEDS ORDERED: HYDROcodone/APAP 5/325 TABLET ONE (22:10)
--- NOTE | 2018-08-21 22:12 | NUR ---
PT MEDICATED PER EMAR.
[2018-08-21] MEDS ORDERED: HYDROcodone/APAP 5/325 TABLET PO ONE (22:30)
== END 2018-08-21 22:14 ==
LOC: ED 22:08
DX: J44.0 Chronic obstructive pulmonary disease with (acute) lower respiratory infection (principal); F17.210 Nicotine dependence, cigarettes, uncomplicated; I10 Essential (primary) hypertension; M19.90 Unspecified osteoarthritis, unspecified site; I25.2 Old myocardial infarction; Z86.73 Personal history of transient ischemic attack (TIA), and cerebral infarction without residual deficits; Z88.5 Allergy status to narcotic agent
CPT/HCPCS: 71046; 87081; 87147; 87880; 93005; 94640; 99284; 99406; J7512; J7620

== ENCOUNTER 2018-08-23 19:19 | Emergency (ER) | payer MEDICAID ==
[~2018-08-23] VITALS: Ht 180.3 cm; Wt 87.5 kg
[2018-08-23 20:06] LABS: ANION GAP 8 mmol/L (5-15); CALCIUM 9.3 mg/dL (8.5-10.1); CHLORIDE 110 mmol/L (98-107); CREATININE 0.93 mg/dL (0.7-1.3)
[2018-08-23 20:09] LABS: TROPONIN I < 0.015 ng/mL (0.000-0.045)
[2018-08-23 20:11] LABS: BASOPHILS # (AUTO) 0.04 x10^3/uL (0-0.1); BASOPHILS % (AUTO) 0 % (0-1); EOSINOPHILS # (AUTO) 0.15 x10^3/uL (0-0.4); EOSINOPHILS % (AUTO) 1 % (1-7); LYMPHOCYTES # (AUTO) 3.33 x10^3/uL (1-3.4); LYMPHOCYTES % (AUTO) 27 % (22-44); MD NO; MEAN CORPUSCULAR HEMOGLOBIN 30.9 pg (27.5-34.5); MEAN CORPUSCULAR HGB CONC 33.8 g/dL (33.2-36.2); MEAN CORPUSCULAR VOLUME 91.3 fL (81-97); MEAN PLATELET VOLUME 7.4 fL (7.4-10.4); MONOCYTES # (AUTO) 0.63 x10^3/uL (0.2-0.8); MONOCYTES % (AUTO) 5 % (2-9); NEUTROPHILS # (AUTO) 8.09 x10^3/uL (1.8-6.8); NEUTROPHILS % (AUTO) 66 % (42-75); PLATELET COUNT 291 x10^3/uL (130-400); RED BLOOD COUNT 4.72 x10^6/uL (4.38-5.82); RED CELL DISTRIBUTION WIDTH 15.4 % (9.4-14.8)
[2018-08-23] MEDS ORDERED: ONDANSETRON ODT 4 MG PO ONE (20:30)
[2018-08-23] MEDS ORDERED: DIPHENHYDRAMINE 25 MG CAPSULE ONE (20:30)
[2018-08-23] MEDS ORDERED: DIPHENHYDRAMINE 25 MG CAPSULE PO ONE (20:30)
[2018-08-23] MEDS ORDERED: ONDANSETRON ODT 4 MG ONE (20:30)
--- NOTE | 2018-08-23 20:45 | NUR ---
PT MEDICATED PER JUN. AT BEDSIDE FOR EVAL. POC DISCUSSED. PT DENIES FURTHER NEEDS AT THIS TIME. AWAITIN CT.
[2018-08-23 21:30] VITALS: BP 120/83
== END 2018-08-23 21:34 | disposition home or self-care (01) ==
LOC: ED 21:28
DX: R51 Headache (principal); R42 Dizziness and giddiness; J01.00 Acute maxillary sinusitis, unspecified; J44.9 Chronic obstructive pulmonary disease, unspecified; I10 Essential (primary) hypertension; I25.2 Old myocardial infarction
CPT/HCPCS: 36415; 70450; 80048; 84484; 85025; 93005; 99284; Q0162; Q0163

== ENCOUNTER 2018-12-10 18:03 | Emergency (ER) | payer MEDICAID, OTHER ==
[~2018-12-10] VITALS: Ht 180.3 cm; Wt 87.0 kg
[2018-12-10 21:25] VITALS: BP 162/82
== END 2018-12-10 21:30 | disposition home or self-care (01) ==
LOC: ED 21:29
DX: I10 Essential (primary) hypertension (principal); R09.81 Nasal congestion; J44.9 Chronic obstructive pulmonary disease, unspecified; I25.2 Old myocardial infarction; Z86.73 Personal history of transient ischemic attack (TIA), and cerebral infarction without residual deficits; Z79.899 Other long term (current) drug therapy; Z88.8 Allergy status to other drugs, medicaments and biological substances; Z72.9 Problem related to lifestyle, unspecified
CPT/HCPCS: 36415; 70450; 71046; 80048; 82040; 85025; 93005; 99284

== ENCOUNTER 2019-02-19 23:54 | Emergency (ER) | payer OTHER ==
[~2019-02-19] VITALS: Ht 172.7 cm; Wt 96.0 kg
[~2019-02-19 23:54] MED LIST changes: +ALLO300T PO; +METO25TA91 PO
[2019-02-20] MEDS ORDERED: ONDANSETRON 2MG/ML, 2ML IVPush ONE (00:30)
[2019-02-20] MEDS ORDERED: CYCLOBENZAPRINE 10 MG TABLET PO ONE (00:30)
[2019-02-20] MEDS ORDERED: MORPHINE SULFATE 4 MG/ML, 1ML IVPush PRN (00:30)
[2019-02-20] MEDS ORDERED: CYCLOBENZAPRINE 10 MG TABLET ONE (00:57)
[2019-02-20] MEDS ORDERED: ONDANSETRON 2MG/ML, 2ML ONE (00:57)
[2019-02-20] MEDS ORDERED: MORPHINE SULFATE 4 MG/ML, 1ML ONE (00:57)
[2019-02-20 01:07] VITALS: BP 124/86
== END 2019-02-20 02:24 | disposition home or self-care (01) ==
LOC: ED 02-20 00:56
DX: S39.012A Strain of muscle, fascia and tendon of lower back, initial encounter (principal); I10 Essential (primary) hypertension; M19.90 Unspecified osteoarthritis, unspecified site; I25.2 Old myocardial infarction; Z72.9 Problem related to lifestyle, unspecified; J44.9 Chronic obstructive pulmonary disease, unspecified; F17.200 Nicotine dependence, unspecified, uncomplicated; X58.XXXA Exposure to other specified factors, initial encounter; Y93.89 Activity, other specified; Y92.89 Other specified places as the place of occurrence of the external cause; Y99.8 Other external cause status
CPT/HCPCS: 93005; 96374; 96375; 99283; J2270; J2405

== ENCOUNTER 2019-04-27 08:28 | Emergency (ER) | payer SELFPAY ==
[~2019-04-27] VITALS: Ht 180.3 cm; Wt 95.0 kg
[2019-04-27 08:31] VITALS: BP 141/80
--- NOTE | 2019-04-27 08:34 | NUR ---
PT BIB [facility] FOR C/O INCREASED LBP, PT WITH CHRONIC LBP. PT GETS TORADOL SHOTS 2-3 TIMES A YEAR WHEN HIS PAIN IS EXACERBATED. PT DENIES CP, SOB, URINARY SYMPTOMS PT TO BP, CONT PULSE OX
[2019-04-27] MEDS ORDERED: HYDROcodone/APAP 5/325 TABLET ONE (08:53)
[2019-04-27] MEDS ORDERED: ONDANSETRON ODT 4 MG ONE (08:53)
[2019-04-27] MEDS ORDERED: KETOROLAC 30 MG/1 ML ONE (08:53)
[2019-04-27] MEDS ORDERED: CYCLOBENZAPRINE 10 MG TABLET ONE (08:53)
[2019-04-27] MEDS ORDERED: ONDANSETRON ODT 4 MG PO ONE (09:00)
[2019-04-27] MEDS ORDERED: CYCLOBENZAPRINE 10 MG TABLET PO ONE (09:00)
[2019-04-27] MEDS ORDERED: HYDROcodone/APAP 5/325 TABLET PO ONE (09:00)
[2019-04-27] MEDS ORDERED: KETOROLAC 30 MG/1 ML IM ONE (09:00)
--- NOTE | 2019-04-27 09:41 | NUR ---
PT AMBULATED AT SIDE OF BED WITH SHUFFLING GAIT, ASKED PT IF HIS PAIN WAS BETTER. PT RESPONDS WITH, "MY PAIN IS BETTER BUT IM HERE BECAUSE MY LEGS ARE NUMB, THEY DONT SUPPORT MY BODY, I GUESS I HAVE TO GO OUTSIDE AND FALL DOWN TO GET THE HOSPITAL TO TAKE CARE OF ME" ER PROVIDER UPDATED,
--- NOTE | 2019-04-27 10:02 | NUR ---
MD IN TO SPEAK WITH PT, PT SHERIEE AND SWEARING AT MD.THIS RN WENT IN TO PROCEED WITH DC PT STILL SWEARING, REFUSED TO SIGN PAPERS.
--- NOTE | 2019-04-27 10:03 | NUR ---
NOTED: PT ABLE TO AMBULATED TO DC DESK WITH NOW STEADY GAIT. PT PROVIDED WITH BUS PASS
== END 2019-04-27 10:05 | disposition home or self-care (01) ==
LOC: ED 09:17
DX: S39.012A Strain of muscle, fascia and tendon of lower back, initial encounter (principal); G89.29 Other chronic pain; J44.9 Chronic obstructive pulmonary disease, unspecified; I10 Essential (primary) hypertension; M10.9 Gout, unspecified; Z79.899 Other long term (current) drug therapy; Z86.73 Personal history of transient ischemic attack (TIA), and cerebral infarction without residual deficits; Z72.9 Problem related to lifestyle, unspecified
CPT/HCPCS: 96372; 99284; J1885; Q0162

== ENCOUNTER 2019-11-21 18:47 | Emergency (ER) | payer MEDICAID ==
[~2019-11-21] VITALS: Ht 180.3 cm; Wt 86.3 kg
[~2019-11-21 18:47] MED LIST changes: +SIMV20TA19 PO; -SIMV20TA3 PO
--- NOTE | 2019-11-21 19:15 | NUR ---
TUBE FILLER: PT FROM LOBBY TO ROOM AT THIS TIME.
[2019-11-21] MEDS ORDERED: SODIUM CHLORIDE FLUSH 10ML SYR IVF ONE (19:30)
[2019-11-21 19:47] LABS: BASOPHILS # (AUTO) 0.04 x10^3/uL (0-0.1); BASOPHILS % (AUTO) 1 % (0-1); EOSINOPHILS # (AUTO) 0.08 x10^3/uL (0-0.4); EOSINOPHILS % (AUTO) 1 % (1-7); LYMPHOCYTES # (AUTO) 1.37 x10^3/uL (1-3.4); LYMPHOCYTES % (AUTO) 20 % (22-44); MD NO; MEAN CORPUSCULAR HGB CONC 32.7 g/dL (33.2-36.2); MEAN CORPUSCULAR VOLUME 100.8 fL (81-97); MONOCYTES % (AUTO) 6 % (2-9); NEUTROPHILS # (AUTO) 5.01 x10^3/uL (1.8-6.8); NEUTROPHILS % (AUTO) 73 % (42-75); PLATELET COUNT 205 x10^3/uL (130-400); RED BLOOD COUNT 4.98 x10^6/uL (4.38-5.82); RED CELL DISTRIBUTION WIDTH 15.8 % (9.4-14.8)
[2019-11-21] MEDS ORDERED: KETOROLAC 30 MG/1 ML ONE (19:52)
[2019-11-21 19:55] LABS: ALANINE AMINOTRANSFERASE 62 U/L (12-78); ALBUMIN 3.7 g/dL (3.4-5.0); ANION GAP 7 mmol/L (5-15); CHLORIDE 109 mmol/L (98-107)
[2019-11-21 19:57] LABS: ALKALINE PHOSPHATASE 134 U/L (45-117); BILIRUBIN,TOTAL 0.7 mg/dL (0.2-1.0); TOTAL PROTEIN 7.5 g/dL (6.4-8.2)
[2019-11-21] MEDS ORDERED: KETOROLAC 30 MG/1 ML IM ONE (20:00)
[2019-11-21] MEDS ORDERED: HYDROmorphone 1 MG/ML, 1ML INJ ONE (20:48)
[2019-11-21] MEDS ORDERED: ONDANSETRON 2MG/ML, 2ML ONE (20:49)
[2019-11-21] MEDS: HYDROmorphone 2 MG/ML, 1ML IVPush PRN (20:55)
[2019-11-21] MEDS ORDERED: ONDANSETRON 2MG/ML, 2ML IVPush ONE (21:00)
--- NOTE | 2019-11-21 21:40 | NUR ---
MRI team called in by radiology
[2019-11-22 00:27] VITALS: BP 152/105
--- NOTE | 2019-11-22 00:28 | NUR ---
Break RN: Patient back from MRI, monitoring back in place, VSS. Requesting more pain medication, ERP aware
[2019-11-22] MEDS ORDERED: HYDROmorphone 1 MG/ML, 1ML INJ ONE (00:45)
[2019-11-22] MEDS: HYDROmorphone 2 MG/ML, 1ML IVPush PRN (00:50)
--- NOTE | 2019-11-22 00:50 | NUR ---
Break RN: Patient medicated per emar for breakthrough pain, tolerated well. Will monitor for any adverse reactions prior to discharge
== END 2019-11-22 01:16 | disposition home or self-care (01) ==
LOC: ED 23:29
DX: M54.16 Radiculopathy, lumbar region (principal); I10 Essential (primary) hypertension; I25.2 Old myocardial infarction; J44.9 Chronic obstructive pulmonary disease, unspecified; M19.90 Unspecified osteoarthritis, unspecified site; F17.200 Nicotine dependence, unspecified, uncomplicated; M10.9 Gout, unspecified; Z86.73 Personal history of transient ischemic attack (TIA), and cerebral infarction without residual deficits
CPT/HCPCS: 36415; 72110; 72148; 80053; 85025; 96372; 96374; 96375; 96376; 99285; J1170; J1885; J2405

== ENCOUNTER 2019-11-23 01:56 | Emergency (ER) | payer MEDICAID ==
[~2019-11-23] VITALS: Ht 180.3 cm; Wt 87.9 kg
[2019-11-23 01:58] VITALS: BP 158/95
--- NOTE | 2019-11-23 02:09 | NUR ---
TASK RN: ERP AT BEDSIDE FOR ASSESSMENT. PT REPORTS INCREASE IN FLANK PAIN AND BLOOD IN URINE SINCE LAST VISIT. PT A/O4 SPEAKING IN FULL SENTENCES DENIES HX OF KIDNEY STONES. REPORTS TAKING HOME MEDS NO LONGER HELPING. PT CONNECTED TO MONITORING VSS NADN
[2019-11-23] MEDS ORDERED: ONDANSETRON 2MG/ML, 2ML ONE (02:12)
[2019-11-23] MEDS ORDERED: MORPHINE SULFATE 4 MG/ML, 1ML ONE (02:13)
--- NOTE | 2019-11-23 02:19 | NUR ---
TASK RN: PT MEDICATED PER MAR, LABS SENT, NAD, VSS, WCTM. CALL LIGHT ON LAP
[2019-11-23 02:24] LABS: BASOPHILS # (AUTO) 0.03 x10^3/uL (0-0.1); BASOPHILS % (AUTO) 0 % (0-1); EOSINOPHILS # (AUTO) 0.11 x10^3/uL (0-0.4); EOSINOPHILS % (AUTO) 2 % (1-7); LYMPHOCYTES # (AUTO) 2.05 x10^3/uL (1-3.4); LYMPHOCYTES % (AUTO) 33 % (22-44); MD NO; MEAN CORPUSCULAR HEMOGLOBIN 33.5 pg (27.5-34.5); MEAN CORPUSCULAR HGB CONC 33.6 g/dL (33.2-36.2); MEAN PLATELET VOLUME 7.3 fL (7.4-10.4); MONOCYTES # (AUTO) 0.42 x10^3/uL (0.2-0.8); MONOCYTES % (AUTO) 7 % (2-9); NEUTROPHILS # (AUTO) 3.55 x10^3/uL (1.8-6.8); NEUTROPHILS % (AUTO) 58 % (42-75); PLATELET COUNT 187 x10^3/uL (130-400); RED BLOOD COUNT 4.75 x10^6/uL (4.38-5.82); RED CELL DISTRIBUTION WIDTH 15.5 % (9.4-14.8)
[2019-11-23] MEDS ORDERED: ONDANSETRON 2MG/ML, 2ML IVPush ONE (02:30)
[2019-11-23] MEDS ORDERED: MORPHINE SULFATE 4 MG/ML, 1ML IVPush PRN (02:30)
[2019-11-23 02:35] LABS: ALANINE AMINOTRANSFERASE 43 U/L (12-78); ALBUMIN 3.3 g/dL (3.4-5.0); ANION GAP 10 mmol/L (5-15); CHLORIDE 104 mmol/L (98-107); CREATININE 0.89 mg/dL (0.7-1.3)
[2019-11-23 02:37] LABS: ALKALINE PHOSPHATASE 126 U/L (45-117); BILIRUBIN,TOTAL 0.9 mg/dL (0.2-1.0); TOTAL PROTEIN 7.3 g/dL (6.4-8.2)
[2019-11-23 04:10] LABS: MICROSCOPIC INDICATED
[2019-11-23] MEDS ORDERED: CEFDINIR 300 MG CAPSULE PO ONE (04:30)
[2019-11-23] MEDS ORDERED: LIDODERM 5% PATCH TD ONE ×2 (04:30→04:34)
[2019-11-23] MEDS ORDERED: CEFDINIR 300 MG CAPSULE ONE (04:34)
--- NOTE | 2019-11-23 04:44 | NUR ---
Discharge instructions given. All questions and concerns addressed. Patient ambulatory with a steady gait. Belongings with patient.
[2019-11-30] MEDS ORDERED: LISI-167 PO ×2 (14:06)
[2019-11-30] MEDS ORDERED: PRED20TA PO ×2 (14:06)
== END 2019-11-23 04:45 | disposition home or self-care (01) ==
LOC: ED 02:15
DX: N30.01 Acute cystitis with hematuria (principal); M54.5 Low back pain; R11.0 Nausea; I10 Essential (primary) hypertension; I25.2 Old myocardial infarction; J44.9 Chronic obstructive pulmonary disease, unspecified; M10.9 Gout, unspecified; F17.210 Nicotine dependence, cigarettes, uncomplicated; Z86.73 Personal history of transient ischemic attack (TIA), and cerebral infarction without residual deficits
CPT/HCPCS: 36415; 74176; 80053; 81001; 83690; 85025; 87086; 87491; 87591; 96374; 96375; 99284; 99406; J2270; J2405

== ENCOUNTER 2019-11-24 15:20 | Inpatient (IN) | payer MEDICAID ==
[~2019-11-24] VITALS: Ht 180.3 cm; Wt 93.5 kg
[~2019-11-24 15:20] MED LIST changes: +GADOTERATE 10 MMOL/20 ML SYR ONE
[2019-11-24] MEDS ORDERED: ONDANSETRON 2MG/ML, 2ML IVPush ONE (16:00)
[2019-11-24] MEDS ORDERED: SODIUM CHLORIDE 0.9% 1,000ML IVBOLUS ONE ×2 (16:00→19:00)
[2019-11-24] MEDS ORDERED: ONDANSETRON 2MG/ML, 2ML ONE (16:09)
[2019-11-24] MEDS ORDERED: MORPHINE SULFATE 4 MG/ML, 1ML ONE ×2 (16:09→17:29)
[2019-11-24] MEDS: MORPHINE SULFATE 4 MG/ML, 1ML IVPush PRN ×2 (16:12→17:32)
[2019-11-24 16:20] LABS: BASOPHILS # (AUTO) 0.02 x10^3/uL (0-0.1); BASOPHILS % (AUTO) 0 % (0-1); EOSINOPHILS # (AUTO) 0.07 x10^3/uL (0-0.4); EOSINOPHILS % (AUTO) 1 % (1-7); LYMPHOCYTES # (AUTO) 1.28 x10^3/uL (1-3.4); LYMPHOCYTES % (AUTO) 20 % (22-44); MD NO; MEAN CORPUSCULAR HEMOGLOBIN 33.3 pg (27.5-34.5); MEAN CORPUSCULAR HGB CONC 32.9 g/dL (33.2-36.2); MEAN CORPUSCULAR VOLUME 101.4 fL (81-97); MEAN PLATELET VOLUME 7.5 fL (7.4-10.4); MONOCYTES # (AUTO) 0.38 x10^3/uL (0.2-0.8); MONOCYTES % (AUTO) 6 % (2-9); NEUTROPHILS # (AUTO) 4.83 x10^3/uL (1.8-6.8); NEUTROPHILS % (AUTO) 73 % (42-75); PLATELET COUNT 186 x10^3/uL (130-400); RED BLOOD COUNT 4.92 x10^6/uL (4.38-5.82); RED CELL DISTRIBUTION WIDTH 15.8 % (9.4-14.8)
--- NOTE | 2019-11-24 16:20 | NUR ---
PT CAME IN BILAT FLANK PAIN AND "MY LEGS ARE LOCKING UP" WAS SEEN LAST MONDAY FOR SAME. PT IN BED IN GOWN WITH CONT SPO2, BP Q 30 MIN, 18G IV IN RIGHT FOREARM AND LEFT AC, BLOOD DRAWN AND SENT TO LAB. WENT OVER PLAN OF CARE FROM ORDER LIST, AGREES TO PLAN. WAR BLANKET GIVEN. CALL LIGHT IN REACH.
[2019-11-24 17:04] LABS: ALBUMIN 3.2 g/dL (3.4-5.0); ANION GAP 8 mmol/L (5-15); CALCIUM 8.6 mg/dL (8.5-10.1); CHLORIDE 110 mmol/L (98-107); CREATININE 1.18 mg/dL (0.7-1.3)
[2019-11-24 17:20] LABS: HCT (SEDRATE) 49.9 % (39.2-51.8)
--- NOTE | 2019-11-24 17:33 | NUR ---
PT TO MRI
[2019-11-24] MEDS ORDERED: CEFTRIAXONE PMX 1GM/50ML 50 ML ONE (18:50)
[2019-11-24] MEDS ORDERED: CEFTRIAXONE PMX 1GM/50ML 50 ML IV ONE (19:00)
--- NOTE | 2019-11-24 19:02 | NUR ---
PT STILL IN MRI AT THIS TIME, WILL START ANTIBIOTICS AND FLUIDS WHEN BACK IN ROOM.
[2019-11-24] MEDS ORDERED: LORazepam 2 MG/ML, 1ML IVPush STA (19:41)
[2019-11-24] MEDS ORDERED: LORazepam 2 MG/ML, 1ML ONE (19:44)
[2019-11-24] MEDS ORDERED: LISINOPRIL 10 MG TABLET PO ONE (21:30)
[2019-11-24] MEDS ORDERED: MELATONIN 5 MG TABLET PO PRN (21:30)
[2019-11-24] MEDS ORDERED: POLYETHYLENE GLYCOL 17 GM PACKET PO PRN (21:30)
[2019-11-24] MEDS ORDERED: BISACODYL 10 MG SUPP PR PRN (21:30)
[2019-11-24] MEDS ORDERED: LORazepam 2 MG/ML, 1ML IVPush PRN (21:30)
[2019-11-24 22:23] VITALS: BP 148/89
[2019-11-24] MEDS: ENOXAPARIN 40 MG/0.4 ML SQ SCH (23:05)
[2019-11-24] MEDS: morphine SULFATE 10 MG/ML, 1ML IVPush PRN (23:06)
[2019-11-24] MEDS: NICOTINE 14MG/24 HR PATCH.TD24 TD SCH (23:06)
[2019-11-24 23:51] LABS: MICROSCOPIC NOT IND
[2019-11-25 02:26] VITALS: BP 134/82
[2019-11-25] MEDS: KETOROLAC 30 MG/1 ML IV PRN ×3 (02:39→20:09)
[2019-11-25 04:39] LABS: BASOPHILS # (AUTO) 0.04 x10^3/uL (0-0.1); BASOPHILS % (AUTO) 1 % (0-1); EOSINOPHILS # (AUTO) 0.12 x10^3/uL (0-0.4); EOSINOPHILS % (AUTO) 2 % (1-7); LYMPHOCYTES # (AUTO) 2.21 x10^3/uL (1-3.4); LYMPHOCYTES % (AUTO) 37 % (22-44); MD NO; MEAN CORPUSCULAR HEMOGLOBIN 33.4 pg (27.5-34.5); MEAN CORPUSCULAR HGB CONC 32.6 g/dL (33.2-36.2); MEAN CORPUSCULAR VOLUME 102.5 fL (81-97); MEAN PLATELET VOLUME 7.6 fL (7.4-10.4); MONOCYTES # (AUTO) 0.49 x10^3/uL (0.2-0.8); MONOCYTES % (AUTO) 8 % (2-9); NEUTROPHILS % (AUTO) 52 % (42-75); PLATELET COUNT 166 x10^3/uL (130-400); RED BLOOD COUNT 4.33 x10^6/uL (4.38-5.82); RED CELL DISTRIBUTION WIDTH 15.8 % (9.4-14.8)
[2019-11-25 04:50] LABS: ANION GAP 7 mmol/L (5-15); CALCIUM 7.6 mg/dL (8.5-10.1); CHLORIDE 109 mmol/L (98-107); CREATININE 0.92 mg/dL (0.7-1.3)
[2019-11-25 08:19] VITALS: BP 113/77
[2019-11-25] MEDS ORDERED: POTASSIUM CHLORIDE 20 MEQ TAB.ER.PRT ONE (08:21)
[2019-11-25] MEDS: SENNA/DOCUSATE TABLET PO SCH (08:22)
[2019-11-25] MEDS: morphine SULFATE 10 MG/ML, 1ML IVPush PRN (08:23)
[2019-11-25] MEDS: LIDODERM 5% PATCH TD PRN (08:24)
[2019-11-25 08:30] LABS: ALBUMIN 2.6 g/dL (3.4-5.0); BILIRUBIN, DIRECT 0.2 mg/dL (0.1-0.2)
[2019-11-25 08:56] LABS: BILIRUBIN,INDIRECT 0.2 mg/dL (0.0-2.0); BILIRUBIN,TOTAL 0.4 mg/dL (0.2-1.0); TOTAL PROTEIN 6.1 g/dL (6.4-8.2)
[2019-11-25] MEDS ORDERED: POTASSIUM CHLORIDE 20 MEQ TAB.ER.PRT PO ONE (09:00)
[2019-11-25] MEDS: CYANOCOBALAMIN 1,000 MCG/ML, 1ML IM SCH (11:10)
[2019-11-25 13:09] VITALS: BP 118/77
[2019-11-25 19:49] VITALS: BP 158/89
[2019-11-25] MEDS: HYDROcodone/APAP 5/325 TABLET PO PRN (21:10)
[2019-11-25] MEDS: ENOXAPARIN 40 MG/0.4 ML SQ SCH (23:14)
[2019-11-25] MEDS: NICOTINE 14MG/24 HR PATCH.TD24 TD SCH (23:15)
[2019-11-25] MEDS: ACETAMINOPHEN 325 MG TABLET PO PRN (23:20)
[2019-11-26] VITALS (9 sets, daily range): BP systolic 131–191; BP diastolic 85–101
[2019-11-26] MEDS: KETOROLAC 30 MG/1 ML IV PRN ×3 (02:20→18:02)
[2019-11-26] MEDS: DIPHENHYDRAMINE 25 MG CAPSULE PO PRN ×2 (02:25→22:38)
[2019-11-26] MEDS: CYCLOBENZAPRINE 10 MG TABLET PO PRN ×2 (03:37→14:03)
[2019-11-26 04:35] LABS: BASOPHILS # (AUTO) 0.04 x10^3/uL (0-0.1); BASOPHILS % (AUTO) 1 % (0-1); EOSINOPHILS # (AUTO) 0.05 x10^3/uL (0-0.4); EOSINOPHILS % (AUTO) 1 % (1-7); LYMPHOCYTES # (AUTO) 1.63 x10^3/uL (1-3.4); LYMPHOCYTES % (AUTO) 26 % (22-44); MD NO; MEAN CORPUSCULAR HEMOGLOBIN 33.7 pg (27.5-34.5); MEAN CORPUSCULAR HGB CONC 33.1 g/dL (33.2-36.2); MEAN CORPUSCULAR VOLUME 101.7 fL (81-97); MEAN PLATELET VOLUME 7.9 fL (7.4-10.4); MONOCYTES # (AUTO) 0.59 x10^3/uL (0.2-0.8); MONOCYTES % (AUTO) 9 % (2-9); NEUTROPHILS # (AUTO) 4.05 x10^3/uL (1.8-6.8); NEUTROPHILS % (AUTO) 64 % (42-75); PLATELET COUNT 169 x10^3/uL (130-400); RED BLOOD COUNT 4.26 x10^6/uL (4.38-5.82); RED CELL DISTRIBUTION WIDTH 15.7 % (9.4-14.8)
[2019-11-26 04:46] LABS: ANION GAP 5 mmol/L (5-15); CHLORIDE 110 mmol/L (98-107)
[2019-11-26] MEDS: SENNA/DOCUSATE TABLET PO SCH (08:45)
[2019-11-26] MEDS: CYANOCOBALAMIN 1,000 MCG/ML, 1ML IM SCH (08:45)
[2019-11-26] MEDS: HYDROcodone/APAP 5/325 TABLET PO PRN ×2 (10:26→19:40)
[2019-11-26] MEDS: ONDANSETRON 2MG/ML, 2ML IVPush PRN (10:26)
[2019-11-26] MEDS: hydrALAzine 20 MG/ML, 1ML IVPush PRN (20:24)
[2019-11-26] MEDS: ENOXAPARIN 40 MG/0.4 ML SQ SCH (22:37)
[2019-11-26] MEDS: NICOTINE 14MG/24 HR PATCH.TD24 TD SCH (22:38)
[2019-11-26] MEDS: ACETAMINOPHEN 325 MG TABLET PO PRN (22:45)
[2019-11-27] VITALS (9 sets, daily range): BP systolic 127–178; BP diastolic 82–104
[2019-11-27] MEDS: KETOROLAC 30 MG/1 ML IV PRN ×4 (00:12→22:02)
[2019-11-27] MEDS: hydrALAzine 20 MG/ML, 1ML IVPush PRN (01:15)
[2019-11-27] MEDS: HYDROcodone/APAP 5/325 TABLET PO PRN ×4 (02:35→22:01)
[2019-11-27] MEDS: ENALAPRILAT 1.25 MG/ML, 2ML IVPush PRN ×2 (03:27→03:50)
[2019-11-27] MEDS: ONDANSETRON 2MG/ML, 2ML IVPush PRN (03:27)
[2019-11-27] MEDS: ACETAMINOPHEN 325 MG TABLET PO PRN ×4 (04:41→19:52)
[2019-11-27 05:19] LABS: BASOPHILS # (AUTO) 0.01 x10^3/uL (0-0.1); BASOPHILS % (AUTO) 0 % (0-1); EOSINOPHILS # (AUTO) 0.02 x10^3/uL (0-0.4); EOSINOPHILS % (AUTO) 0 % (1-7); LYMPHOCYTES # (AUTO) 1.56 x10^3/uL (1-3.4); LYMPHOCYTES % (AUTO) 22 % (22-44); MD NO; MEAN CORPUSCULAR HEMOGLOBIN 33.5 pg (27.5-34.5); MEAN CORPUSCULAR HGB CONC 32.9 g/dL (33.2-36.2); MEAN CORPUSCULAR VOLUME 101.6 fL (81-97); MEAN PLATELET VOLUME 8.2 fL (7.4-10.4); MONOCYTES # (AUTO) 0.56 x10^3/uL (0.2-0.8); MONOCYTES % (AUTO) 8 % (2-9); NEUTROPHILS # (AUTO) 4.91 x10^3/uL (1.8-6.8); NEUTROPHILS % (AUTO) 70 % (42-75); PLATELET COUNT 172 x10^3/uL (130-400); RED BLOOD COUNT 4.64 x10^6/uL (4.38-5.82); RED CELL DISTRIBUTION WIDTH 15.7 % (9.4-14.8)
[2019-11-27 05:37] LABS: ANION GAP 8 mmol/L (5-15); CALCIUM 8.9 mg/dL (8.5-10.1); CHLORIDE 109 mmol/L (98-107)
[2019-11-27] MEDS: SENNA/DOCUSATE TABLET PO SCH ×2 (09:15→22:01)
[2019-11-27] MEDS: LISINOPRIL 10 MG TABLET PO SCH ×3 (09:15→22:04)
[2019-11-27] MEDS: CYANOCOBALAMIN 1,000 MCG/ML, 1ML IM SCH (11:58)
[2019-11-27] MEDS: ENOXAPARIN 40 MG/0.4 ML SQ SCH (22:01)
[2019-11-27] MEDS: NICOTINE 14MG/24 HR PATCH.TD24 TD SCH (22:02)
[2019-11-28 01:55] VITALS: BP 135/82
[2019-11-28] MEDS: KETOROLAC 30 MG/1 ML IV PRN ×3 (04:46→18:02)
[2019-11-28] MEDS: HYDROcodone/APAP 5/325 TABLET PO PRN ×2 (04:46→20:25)
[2019-11-28 06:34] LABS: BASOPHILS # (AUTO) 0.07 x10^3/uL (0-0.1); BASOPHILS % (AUTO) 1 % (0-1); EOSINOPHILS # (AUTO) 0.04 x10^3/uL (0-0.4); EOSINOPHILS % (AUTO) 1 % (1-7); LYMPHOCYTES # (AUTO) 3.29 x10^3/uL (1-3.4); LYMPHOCYTES % (AUTO) 38 % (22-44); MD NO; MEAN CORPUSCULAR HEMOGLOBIN 33.3 pg (27.5-34.5); MEAN CORPUSCULAR HGB CONC 32.5 g/dL (33.2-36.2); MEAN CORPUSCULAR VOLUME 102.3 fL (81-97); MONOCYTES # (AUTO) 0.85 x10^3/uL (0.2-0.8); MONOCYTES % (AUTO) 10 % (2-9); NEUTROPHILS # (AUTO) 4.51 x10^3/uL (1.8-6.8); NEUTROPHILS % (AUTO) 52 % (42-75); PLATELET COUNT 188 x10^3/uL (130-400); RED BLOOD COUNT 4.55 x10^6/uL (4.38-5.82); RED CELL DISTRIBUTION WIDTH 15.8 % (9.4-14.8)
[2019-11-28 06:37] LABS: ANION GAP 6 mmol/L (5-15); CHLORIDE 107 mmol/L (98-107)
[2019-11-28] MEDS: LISINOPRIL 10 MG TABLET PO SCH ×2 (08:37→20:53)
[2019-11-28 08:39] VITALS: BP 137/88
[2019-11-28] MEDS: SENNA/DOCUSATE TABLET PO SCH (08:39)
[2019-11-28 09:20] VITALS: BP 149/88
[2019-11-28] MEDS: CYANOCOBALAMIN 1,000 MCG/ML, 1ML IM SCH (11:18)
[2019-11-28 15:41] VITALS: BP 146/84
[2019-11-28 18:24] VITALS: BP 144/86
[2019-11-28 20:50] VITALS: BP 159/95
[2019-11-28] MEDS: NICOTINE 14MG/24 HR PATCH.TD24 TD SCH (22:01)
[2019-11-28] MEDS: ENOXAPARIN 40 MG/0.4 ML SQ SCH (22:01)
[2019-11-29 00:17] VITALS: BP 167/95
[2019-11-29] MEDS: DIPHENHYDRAMINE 25 MG CAPSULE PO PRN (00:55)
[2019-11-29] MEDS: KETOROLAC 30 MG/1 ML IV PRN ×3 (00:55→19:32)
[2019-11-29 07:27] VITALS: BP 146/96
[2019-11-29 07:36] VITALS: BP 146/89
[2019-11-29] MEDS: LISINOPRIL 10 MG TABLET PO SCH ×2 (08:51→20:49)
[2019-11-29] MEDS: SENNA/DOCUSATE TABLET PO SCH (08:52)
[2019-11-29] MEDS: CYANOCOBALAMIN 1,000 MCG/ML, 1ML IM SCH (09:54)
[2019-11-29 13:12] VITALS: BP 149/87
[2019-11-29] MEDS: HYDROcodone/APAP 5/325 TABLET PO PRN ×2 (16:24→22:09)
[2019-11-29] MEDS: ACETAMINOPHEN 325 MG TABLET PO PRN (19:32)
[2019-11-29 20:15] VITALS: BP 171/97
[2019-11-29] MEDS: NICOTINE 14MG/24 HR PATCH.TD24 TD SCH (20:49)
[2019-11-29] MEDS: ENOXAPARIN 40 MG/0.4 ML SQ SCH (20:49)
[2019-11-29] MEDS: LIDODERM 5% PATCH TD PRN (22:08)
[2019-11-29] MEDS: hydrALAzine 20 MG/ML, 1ML IVPush PRN (22:09)
[2019-11-30] MEDS: CYCLOBENZAPRINE 10 MG TABLET PO PRN ×2 (00:07→19:36)
[2019-11-30] MEDS: ACETAMINOPHEN 325 MG TABLET PO PRN ×2 (00:07→15:08)
[2019-11-30 01:09] VITALS: BP 124/73
[2019-11-30 05:34] LABS: ANION GAP 4 mmol/L (5-15); CALCIUM 9.5 mg/dL (8.5-10.1); CHLORIDE 108 mmol/L (98-107); CREATININE 0.86 mg/dL (0.7-1.3)
[2019-11-30] MEDS: HYDROcodone/APAP 5/325 TABLET PO PRN ×4 (05:34→22:43)
[2019-11-30 05:35] LABS: BASOPHILS # (AUTO) 0.08 x10^3/uL (0-0.1); BASOPHILS % (AUTO) 1 % (0-1); EOSINOPHILS # (AUTO) 0.07 x10^3/uL (0-0.4); EOSINOPHILS % (AUTO) 1 % (1-7); LYMPHOCYTES % (AUTO) 33 % (22-44); MD NO; MEAN CORPUSCULAR HEMOGLOBIN 33.7 pg (27.5-34.5); MEAN CORPUSCULAR HGB CONC 33.1 g/dL (33.2-36.2); MEAN CORPUSCULAR VOLUME 101.8 fL (81-97); MEAN PLATELET VOLUME 8.1 fL (7.4-10.4); MONOCYTES # (AUTO) 0.93 x10^3/uL (0.2-0.8); MONOCYTES % (AUTO) 10 % (2-9); NEUTROPHILS # (AUTO) 5.48 x10^3/uL (1.8-6.8); NEUTROPHILS % (AUTO) 56 % (42-75); PLATELET COUNT 239 x10^3/uL (130-400); RED BLOOD COUNT 4.52 x10^6/uL (4.38-5.82); RED CELL DISTRIBUTION WIDTH 16.1 % (9.4-14.8)
[2019-11-30 07:23] VITALS: BP 130/91
[2019-11-30] MEDS: SENNA/DOCUSATE TABLET PO SCH (09:17)
[2019-11-30] MEDS: LISINOPRIL 10 MG TABLET PO SCH ×2 (09:17→19:36)
[2019-11-30] MEDS: CYANOCOBALAMIN 1,000 MCG/ML, 1ML IM SCH (10:51)
[2019-11-30 13:10] VITALS: BP 174/101
[2019-11-30] MEDS: hydrALAzine 20 MG/ML, 1ML IVPush PRN (13:10)
[2019-11-30] MEDS ORDERED: LISI-167 PO (14:06)
[2019-11-30] MEDS ORDERED: PRED20TA PO (14:06)
[2019-11-30 19:28] VITALS: BP 155/99
[2019-11-30] MEDS: NICOTINE 14MG/24 HR PATCH.TD24 TD SCH (21:49)
[2019-11-30] MEDS: ENOXAPARIN 40 MG/0.4 ML SQ SCH (21:49)
[2019-12-01 00:55] VITALS: BP 144/85
[2019-12-01] MEDS: DIPHENHYDRAMINE 25 MG CAPSULE PO PRN (01:06)
[2019-12-01] MEDS: HYDROcodone/APAP 5/325 TABLET PO PRN (06:31)
[2019-12-01 07:17] VITALS: BP 114/83
[2019-12-01] MEDS: LISINOPRIL 10 MG TABLET PO SCH (08:07)
[2019-12-01] MEDS: SENNA/DOCUSATE TABLET PO SCH (08:08)
[2019-12-01] MEDS: CYCLOBENZAPRINE 10 MG TABLET PO PRN (08:11)
[2019-12-01] MEDS: CYANOCOBALAMIN 1,000 MCG/ML, 1ML IM SCH (09:51)
[2019-12-01] MEDS ORDERED: HYDR-3237 PO (10:16)
[2019-12-01 13:20] VITALS: BP 119/69
== END 2019-12-01 14:50 | DRG 552 ==
LOC: ED 17:16 → EDIP 22:20 → 4WST 22:25 → 3N 11-26 09:00
PROVIDERS: ADMIT Internal Medicine; ATTEND Internal Medicine
DX: M51.16 Intervertebral disc disorders with radiculopathy, lumbar region (principal); N39.0 Urinary tract infection, site not specified; J90 Pleural effusion, not elsewhere classified; J98.11 Atelectasis; M1A.9XX1 Chronic gout, unspecified, with tophus (tophi); D17.79 Benign lipomatous neoplasm of other sites; D75.89 Other specified diseases of blood and blood-forming organs; F17.200 Nicotine dependence, unspecified, uncomplicated; G89.29 Other chronic pain; H81.10 Benign paroxysmal vertigo, unspecified ear; I10 Essential (primary) hypertension; J44.9 Chronic obstructive pulmonary disease, unspecified; M19.90 Unspecified osteoarthritis, unspecified site; M25.78 Osteophyte, vertebrae; M47.26 Other spondylosis with radiculopathy, lumbar region; M48.02 Spinal stenosis, cervical region; M48.061 Spinal stenosis, lumbar region without neurogenic claudication; M51.17 Intervertebral disc disorders with radiculopathy, lumbosacral region; M51.34 Other intervertebral disc degeneration, thoracic region; M25.60 Stiffness of unspecified joint, not elsewhere classified; R73.9 Hyperglycemia, unspecified; F17.210 Nicotine dependence, cigarettes, uncomplicated; R11.0 Nausea; R51 Headache; Z86.73 Personal history of transient ischemic attack (TIA), and cerebral infarction without residual deficits; Z88.5 Allergy status to narcotic agent; Z80.9 Family history of malignant neoplasm, unspecified; Z83.3 Family history of diabetes mellitus; Z82.49 Family history of ischemic heart disease and other diseases of the circulatory system; Z20.828 Contact with and (suspected) exposure to other viral communicable diseases
CPT/HCPCS: 36415; 70450; 70553; 72141; 72157; 72158; 74176; 80048; 80076; 81003; 82040; 82550; 82607; 83036; 83605; 84425; 84550; 85025; 85651; 86592; 87040; 87635; 93005; 96361; 96365; 96375; G0378; J0696; J1650; J1885; J2405; A9575; J0360; J2060; J2270; J3420; J7030; J7512; Q0163

== ENCOUNTER 2020-01-30 05:42 | Inpatient (IN) | payer MEDICAID ==
[~2020-01-30] VITALS: Ht 180.3 cm; Wt 95.8 kg
[~2020-01-30 05:42] MED LIST changes: -GADOTERATE 10 MMOL/20 ML SYR ONE; +HYDR-3237 PO; +LISI-167 PO; +PRED20TA PO
[2020-01-30] MEDS ORDERED: ASPIRIN 81 MG TABLET CHEW ONE (06:24)
[2020-01-30] MEDS ORDERED: ASPIRIN 81 MG TABLET CHEW PO ONE (06:30)
[2020-01-30] MEDS ORDERED: SODIUM CHLORIDE FLUSH 10ML SYR IVF ONE (06:30)
[2020-01-30 06:32] LABS: BASOPHILS # (AUTO) 0.03 x10^3/uL (0-0.1); BASOPHILS % (AUTO) 0 % (0-1); EOSINOPHILS # (AUTO) 0.56 x10^3/uL (0-0.4); EOSINOPHILS % (AUTO) 7 % (1-7); LYMPHOCYTES # (AUTO) 2.54 x10^3/uL (1-3.4); LYMPHOCYTES % (AUTO) 31 % (22-44); MD NO; MEAN CORPUSCULAR HEMOGLOBIN 31.8 pg (27.5-34.5); MEAN PLATELET VOLUME 7.4 fL (7.4-10.4); MONOCYTES # (AUTO) 1.04 x10^3/uL (0.2-0.8); MONOCYTES % (AUTO) 13 % (2-9); NEUTROPHILS # (AUTO) 3.99 x10^3/uL (1.8-6.8); NEUTROPHILS % (AUTO) 49 % (42-75); PLATELET COUNT 163 x10^3/uL (130-400); RED CELL DISTRIBUTION WIDTH 14.4 % (9.4-14.8)
[2020-01-30 06:44] LABS: ALANINE AMINOTRANSFERASE 36 U/L (12-78); ALBUMIN 3.7 g/dL (3.4-5.0); ANION GAP 4 mmol/L (5-15); CALCIUM 9.2 mg/dL (8.5-10.1); CHLORIDE 104 mmol/L (98-107); CREATININE 1.06 mg/dL (0.7-1.3)
[2020-01-30 06:49] LABS: ALKALINE PHOSPHATASE 87 U/L (45-117); BILIRUBIN,TOTAL 0.5 mg/dL (0.2-1.0); TOTAL PROTEIN 7.5 g/dL (6.4-8.2); TROPONIN I < 0.015 ng/mL (0.000-0.045)
--- NOTE | 2020-01-30 07:03 | NUR ---
REPORT FROM MERNA. PT RESTING. DENIES DISCOMFORT AT THIS TIME
[2020-01-30] MEDS ORDERED: MORPHINE SULFATE 4 MG/ML, 1ML ONE (07:31)
--- NOTE | 2020-01-30 07:34 | NUR ---
PT CO NECK, SHOULDER PAIN. DENIES PAIN IN CHEST, JUST "TIGHTNESS', AWARE
--- NOTE | 2020-01-30 07:51 | NUR ---
PT HAS HX OF PRIOR VA W CP RADIATING DOWN LEFT ARM. DOES NOT FEEL LIKE HIS PRIOR VA. PLAN FOR ADMIT.
[2020-01-30] MEDS: MORPHINE SULFATE 4 MG/ML, 1ML IVPush PRN ×2 (07:56→11:54)
--- NOTE | 2020-01-30 08:01 | NUR ---
MEDICATED PER ORDERS. REPORT GIVEN TO DAVID. PT READY FOR TRANSFER
[2020-01-30 12:04] LABS: TROPONIN I < 0.015 ng/mL (0.000-0.045)
[2020-01-30 12:20] VITALS: BP 96/64
[2020-01-30] MEDS ORDERED: PROMETHAZINE 25 MG/ML, 1ML IM PRN (13:00)
[2020-01-30] MEDS ORDERED: LABETALOL 5MG/ML, 20ML IVPush PRN (13:00)
[2020-01-30] MEDS ORDERED: ACETAMINOPHEN 325 MG TABLET PO PRN (13:00)
[2020-01-30] MEDS ORDERED: hydrALAzine 20 MG/ML, 1ML IVPush PRN (13:00)
[2020-01-30] MEDS ORDERED: ONDANSETRON 2MG/ML, 2ML IVPush PRN (13:00)
[2020-01-30] MEDS: ALLOPURINOL 300 MG TABLET PO SCH (13:00)
[2020-01-30] MEDS: SODIUM CHLORIDE 0.9% 1,000 ML IV SCH (13:37)
[2020-01-30] MEDS: HEPARIN 5,000 UNITS/ML, 1ML SQ SCH ×2 (13:37→20:05)
[2020-01-30 15:02] LABS: TROPONIN I < 0.015 ng/mL (0.000-0.045)
[2020-01-30] MEDS: morphine SULFATE 10 MG/ML, 1ML IVPush PRN ×2 (16:00→20:05)
[2020-01-30 19:33] VITALS: BP 121/77
[2020-01-30] MEDS: METOPROLOL SUCCINATE 25 MG TAB.ER.24H PO SCH (20:05)
[2020-01-30] MEDS: LISINOPRIL 10 MG TABLET PO SCH (20:05)
[2020-01-30] MEDS: CYCLOBENZAPRINE 10 MG TABLET PO PRN (20:13)
[2020-01-30 21:58] LABS: TROPONIN I < 0.015 ng/mL (0.000-0.045)
[2020-01-31 00:57] VITALS: BP 98/65
[2020-01-31] MEDS: morphine SULFATE 10 MG/ML, 1ML IVPush PRN ×2 (01:07→05:47)
[2020-01-31] MEDS: SODIUM CHLORIDE 0.9% 1,000 ML IV SCH (02:12)
[2020-01-31 03:32] LABS: BASOPHILS # (AUTO) 0.04 x10^3/uL (0-0.1); BASOPHILS % (AUTO) 1 % (0-1); EOSINOPHILS # (AUTO) 0.43 x10^3/uL (0-0.4); EOSINOPHILS % (AUTO) 9 % (1-7); LYMPHOCYTES # (AUTO) 2.38 x10^3/uL (1-3.4); LYMPHOCYTES % (AUTO) 51 % (22-44); MD NO; MEAN CORPUSCULAR HEMOGLOBIN 32.5 pg (27.5-34.5); MEAN PLATELET VOLUME 7.9 fL (7.4-10.4); MONOCYTES # (AUTO) 0.41 x10^3/uL (0.2-0.8); MONOCYTES % (AUTO) 9 % (2-9); NEUTROPHILS # (AUTO) 1.45 x10^3/uL (1.8-6.8); NEUTROPHILS % (AUTO) 31 % (42-75); PLATELET COUNT 162 x10^3/uL (130-400); RED BLOOD COUNT 3.73 x10^6/uL (4.38-5.82); RED CELL DISTRIBUTION WIDTH 13.9 % (9.4-14.8)
[2020-01-31 03:43] LABS: ALANINE AMINOTRANSFERASE 35 U/L (12-78); ALBUMIN 3.3 g/dL (3.4-5.0); ANION GAP 6 mmol/L (5-15); CALCIUM 8.7 mg/dL (8.5-10.1); CHLORIDE 104 mmol/L (98-107); CREATININE 1.03 mg/dL (0.7-1.3)
[2020-01-31 03:47] LABS: ALKALINE PHOSPHATASE 83 U/L (45-117); BILIRUBIN,TOTAL 0.4 mg/dL (0.2-1.0); TOTAL PROTEIN 6.9 g/dL (6.4-8.2); TROPONIN I < 0.015 ng/mL (0.000-0.045)
[2020-01-31] MEDS: HEPARIN 5,000 UNITS/ML, 1ML SQ SCH ×3 (05:39→20:57)
[2020-01-31 06:46] VITALS: BP 91/56
[2020-01-31] MEDS: ALLOPURINOL 300 MG TABLET PO SCH (07:58)
[2020-01-31] MEDS: LIDODERM 5% PATCH TD SCH (07:59)
[2020-01-31] MEDS ORDERED: MAGNESIUM SULFATE PMX 2GM/50ML 50 ML IV ONE (08:00)
[2020-01-31] MEDS: PANTOPRAZOLE 40MG TABLET PO SCH (08:00)
[2020-01-31] MEDS ORDERED: METOCLOPRAMIDE 5 MG/ML, 2ML IVPush ONE (08:00)
[2020-01-31] MEDS ORDERED: REGADENOSON 0.4 MG/5 ML SYRINGE ONE (08:16)
[2020-01-31] MEDS: METOPROLOL SUCCINATE 25 MG TAB.ER.24H PO SCH (09:40)
[2020-01-31] MEDS: LISINOPRIL 10 MG TABLET PO SCH (09:40)
[2020-01-31 10:04] LABS: HCT (SEDRATE) 35.7 % (39.2-51.8)
[2020-01-31] MEDS: BUTALB/APAP/CAFFEINE 50MG/325MG/40MG PO PRN ×2 (11:22→20:58)
[2020-01-31] MEDS: CYCLOBENZAPRINE 10 MG TABLET PO PRN (11:23)
[2020-01-31 12:39] VITALS: BP 96/65
[2020-01-31 18:40] VITALS: BP 118/73
[2020-01-31] MEDS ORDERED: DIVALPROEX 250 MG TABLET.DR PO SCH (21:00)
[2020-02-01 00:57] VITALS: BP 104/72
[2020-02-01] MEDS: PANTOPRAZOLE 40MG TABLET PO SCH (04:28)
[2020-02-01] MEDS: HEPARIN 5,000 UNITS/ML, 1ML SQ SCH ×2 (04:28→17:23)
[2020-02-01 07:03] VITALS: BP 104/56
[2020-02-01] MEDS: LIDODERM 5% PATCH TD SCH (08:19)
[2020-02-01] MEDS: METOPROLOL SUCCINATE 25 MG TAB.ER.24H PO SCH (11:31)
[2020-02-01] MEDS: LISINOPRIL 10 MG TABLET PO SCH (11:34)
[2020-02-01 11:35] VITALS: BP 105/70
[2020-02-01] MEDS: ALLOPURINOL 300 MG TABLET PO SCH (11:42)
[2020-02-01 13:30] VITALS: BP 96/60
[2020-02-01] MEDS ORDERED: GADOTERATE 10 MMOL/20 ML SYR ONE (15:36)
[2020-02-01] MEDS: KETOROLAC 30 MG/1 ML IM SCH ×2 (17:23→23:56)
[2020-02-01 19:13] VITALS: BP 107/68
[2020-02-01] MEDS: DIVALPROEX 500 MG TABLET.DR PO SCH (20:33)
[2020-02-01] MEDS: BUTALB/APAP/CAFFEINE 50MG/325MG/40MG PO PRN (22:16)
[2020-02-02] MEDS: HEPARIN 5,000 UNITS/ML, 1ML SQ SCH ×3 (00:03→16:50)
[2020-02-02 00:05] VITALS: BP 117/82
[2020-02-02] MEDS: PANTOPRAZOLE 40MG TABLET PO SCH (05:56)
[2020-02-02] MEDS: KETOROLAC 30 MG/1 ML IM SCH ×4 (05:56→22:28)
[2020-02-02 07:34] VITALS: BP 114/73
[2020-02-02 07:38] VITALS: BP 125/78
[2020-02-02] MEDS: LIDODERM 5% PATCH TD SCH (08:00)
[2020-02-02] MEDS: DIVALPROEX 500 MG TABLET.DR PO SCH ×2 (08:54→21:49)
[2020-02-02] MEDS: ALLOPURINOL 300 MG TABLET PO SCH (08:55)
[2020-02-02] MEDS: BUTALB/APAP/CAFFEINE 50MG/325MG/40MG PO PRN (08:55)
[2020-02-02] MEDS: METOPROLOL SUCCINATE 25 MG TAB.ER.24H PO SCH (08:55)
[2020-02-02] MEDS: LISINOPRIL 10 MG TABLET PO SCH (08:57)
[2020-02-02 13:20] VITALS: BP 97/68
[2020-02-02] MEDS: CYCLOBENZAPRINE 10 MG TABLET PO PRN (14:57)
[2020-02-02 19:15] VITALS: BP 120/79
[2020-02-03 00:23] VITALS: BP 104/60
[2020-02-03] MEDS: HEPARIN 5,000 UNITS/ML, 1ML SQ SCH ×3 (01:00→17:27)
[2020-02-03] MEDS: KETOROLAC 30 MG/1 ML IM SCH ×2 (05:42→11:24)
[2020-02-03] MEDS: PANTOPRAZOLE 40MG TABLET PO SCH (05:42)
[2020-02-03] MEDS: LIDODERM 5% PATCH TD SCH (07:08)
[2020-02-03 07:28] VITALS: BP 110/73
[2020-02-03] MEDS: ALLOPURINOL 300 MG TABLET PO SCH (09:30)
[2020-02-03] MEDS: DIVALPROEX 500 MG TABLET.DR PO SCH ×2 (09:31→20:30)
[2020-02-03] MEDS: METOPROLOL SUCCINATE 25 MG TAB.ER.24H PO SCH (09:34)
[2020-02-03] MEDS: LISINOPRIL 10 MG TABLET PO SCH (09:35)
[2020-02-03] MEDS: BUTALB/APAP/CAFFEINE 50MG/325MG/40MG PO PRN ×3 (09:40→20:30)
[2020-02-03 12:49] VITALS: BP 96/62
[2020-02-03 19:02] VITALS: BP 117/75
[2020-02-04] MEDS: HEPARIN 5,000 UNITS/ML, 1ML SQ SCH ×2 (01:15→09:52)
[2020-02-04 01:43] VITALS: BP 115/68
[2020-02-04] MEDS: PANTOPRAZOLE 40MG TABLET PO SCH (06:03)
[2020-02-04] MEDS: LIDODERM 5% PATCH TD SCH (08:00)
[2020-02-04 08:09] VITALS: BP 145/82
[2020-02-04] MEDS ORDERED: BUTA-177 PO (09:43)
[2020-02-04] MEDS ORDERED: PANT40TA6 PO (09:43)
[2020-02-04] MEDS ORDERED: LIDO700A20 TD (09:43)
[2020-02-04] MEDS ORDERED: TRAM50TA2 PO (09:43)
[2020-02-04] MEDS ORDERED: DIVA-61 PO (09:43)
[2020-02-04] MEDS ORDERED: METO25TA91 PO (09:43)
[2020-02-04] MEDS: ALLOPURINOL 300 MG TABLET PO SCH (09:52)
[2020-02-04] MEDS: DIVALPROEX 500 MG TABLET.DR PO SCH (09:52)
[2020-02-04] MEDS: METOPROLOL SUCCINATE 25 MG TAB.ER.24H PO SCH (09:53)
[2020-02-04 13:55] LABS: ANA SCREEN NEGATIVE (Negative)
[2020-02-04 14:23] VITALS: BP 122/75
== END 2020-02-04 16:36 | DRG 558 ==
LOC: ED 06:34 → EDIP 07:19 → INTOOBSV 07:19 → 5SO 08:17 → 3N 01-31 16:02 → OBSVTOIN 02-01 17:55
PROVIDERS: ADMIT Hospitalist; ATTEND Hospitalist
DX: M75.52 Bursitis of left shoulder (principal); R07.89 Other chest pain; I10 Essential (primary) hypertension; H53.8 Other visual disturbances; M10.9 Gout, unspecified; G89.29 Other chronic pain; M77.8 Other enthesopathies, not elsewhere classified; R51.9 Headache, unspecified; Z88.8 Allergy status to other drugs, medicaments and biological substances; Z72.0 Tobacco use
CPT/HCPCS: 36415; 70450; 70551; 71045; 78452; 80053; 84484; 84550; 85025; 85379; 85651; 86038; 86430; 93005; 93017; 96374; 96375; 96376; 99285; G0378; J1644; J1885; J2785; A9502; A9575; J2270; J2765; J3475; J7030

== ENCOUNTER 2020-02-16 03:39 | Emergency (ER) | payer MEDICAID ==
[~2020-02-16] VITALS: Ht 180.3 cm; Wt 92.3 kg
[~2020-02-16 03:39] MED LIST changes: +BUTA-177 PO; +DIVA-61 PO; +LIDO700A20 TD; +PANT40TA6 PO; +TRAM50TA2 PO
--- NOTE | 2020-02-16 03:56 | NUR ---
EKG IN TRIAGE
[2020-02-16] MEDS ORDERED: KETOROLAC 30 MG/1 ML ONE (05:17)
[2020-02-16] MEDS ORDERED: KETOROLAC 30 MG/1 ML IVPush ONE (05:30)
[2020-02-16] MEDS ORDERED: SODIUM CHLORIDE 0.9% 1,000ML IVBOLUS ONE (05:30)
[2020-02-16 05:59] LABS: ALANINE AMINOTRANSFERASE 23 U/L (12-78); ALBUMIN 3.6 g/dL (3.4-5.0); ANION GAP 8 mmol/L (5-15); CALCIUM 9.2 mg/dL (8.5-10.1); CHLORIDE 108 mmol/L (98-107); CREATININE 0.82 mg/dL (0.7-1.3)
[2020-02-16 06:01] LABS: ALKALINE PHOSPHATASE 91 U/L (45-117); BILIRUBIN,TOTAL 0.7 mg/dL (0.2-1.0); TOTAL PROTEIN 7.2 g/dL (6.4-8.2)
[2020-02-16 07:00] VITALS: BP 147/86
== END 2020-02-16 07:38 | disposition home or self-care (01) ==
LOC: ED 05:53
DX: B34.9 Viral infection, unspecified (principal); Z20.828 Contact with and (suspected) exposure to other viral communicable diseases; R00.0 Tachycardia, unspecified; M25.512 Pain in left shoulder; R07.9 Chest pain, unspecified; I10 Essential (primary) hypertension; I25.2 Old myocardial infarction; F17.290 Nicotine dependence, other tobacco product, uncomplicated; M19.90 Unspecified osteoarthritis, unspecified site; Z86.73 Personal history of transient ischemic attack (TIA), and cerebral infarction without residual deficits
CPT/HCPCS: 36415; 71045; 80053; 83605; 87635; 93005; 96361; 96374; 99285; J1885; J7030

== ENCOUNTER 2020-02-18 00:29 | Emergency (ER) | payer MEDICAID ==
[~2020-02-18] VITALS: Ht 180.3 cm; Wt 93.0 kg
--- NOTE | 2020-02-18 01:57 | NUR ---
PT LAYING ON GURSchool Admissions, CONNECTED TO BP AND O2 MONITORS. PT HAS CHRONIC BACK PAIN WHICH HE TAKES IBUPORFEN AND GABAPENTIN FOR. PT STATES THAT TONIGHT IT'S DIFFERENT BECAUSE HE'S UNABLE TO SLEEP. RESPIRATIONS EVEN AND UNLABORED. NADN. BEDRAILS UP, CALL LIGHT IN REACH.
[2020-02-18] MEDS ORDERED: DIAZEPAM 5 MG TABLET ONE (02:22)
[2020-02-18] MEDS ORDERED: DIAZEPAM 5 MG TABLET PO ONE (02:30)
--- NOTE | 2020-02-18 03:07 | NUR ---
PT REMAINS IN GURNEY. NOW DRIFTING IN AND OUT OF SLEEP WITH EYES CLOSED, REPSIRATIONS EVEN AND UNLABORED.
[2020-02-18 04:54] VITALS: BP 116/79
== END 2020-02-18 04:58 | disposition home or self-care (01) ==
LOC: ED 03:30
DX: S39.012A Strain of muscle, fascia and tendon of lower back, initial encounter (principal); I10 Essential (primary) hypertension; I25.2 Old myocardial infarction; M10.9 Gout, unspecified; M19.90 Unspecified osteoarthritis, unspecified site; J44.9 Chronic obstructive pulmonary disease, unspecified; Z86.73 Personal history of transient ischemic attack (TIA), and cerebral infarction without residual deficits; X58.XXXA Exposure to other specified factors, initial encounter; Y93.89 Activity, other specified; Y92.89 Other specified places as the place of occurrence of the external cause; Y99.8 Other external cause status
CPT/HCPCS: 99283

== ENCOUNTER 2020-02-18 07:33 | Emergency (ER) | payer MEDICAID ==
[~2020-02-18] VITALS: Ht 180.3 cm; Wt 93.0 kg
--- NOTE | 2020-02-18 08:08 | NUR ---
REGAN HUBBARD PA AT BEDSIDE. PT D/C FROM ED EARLIER THIS AM. PT HAS NOT GOTTEN HIS RX FILLED. PT LIVES AT [facility] STATES HE HAS NO WHERE TO STAY DURING DAY AND SAYS THAT HE IS FALLING DOWN. PT AMBULATORY STEADY GAIT TO ROOM FROM TRIAGE.
--- NOTE | 2020-02-18 08:15 | NUR ---
PT STATES THAT WHEN HE LEFT THE ED THIS MORNING THAT HE WALKED DOWNTOWN TO GET COFFEE BUT THEN STATES THAT HE HAD A FRIEND DRIVE HIM BACK TO THE ED. PT HAS NOT FOLLOWED UP WITH ANY OF THE REFERRAL THAT HAVE BEEN GIVEN HIM ON PREVIOUS ED VISITS. ER PA DISCUSSED POC AND REFERRAL PROCESS AND IMPORTANCE OF FOLLOWING THROUGH ON HIS PART WITH THE REFERRAL DOCTORS. PT VERBALIZES UNDERSTANDING.
[2020-02-18] MEDS ORDERED: METHOCARBAMOL 750 MG TABLET PO ONE (08:30)
[2020-02-18] MEDS ORDERED: prednisOLONE 15 MG/5 ML ORAL SOLN PO ONE (08:30)
[2020-02-18] MEDS ORDERED: KETOROLAC 30 MG/1 ML IM ONE (08:30)
[2020-02-18] MEDS ORDERED: KETOROLAC 30 MG/1 ML ONE (08:37)
[2020-02-18] MEDS ORDERED: METHOCARBAMOL 750 MG TABLET ONE (08:37)
[2020-02-18 09:14] VITALS: BP 119/73
--- NOTE | 2020-02-18 09:19 | NUR ---
Patient/Caregiver given discharge instructions and they have confirmed that they understand the instructions. Patient ambulatory with steady gait. NAD NOTED. PT ALSO GIVEN INFORMATION FOR MEDICATION ASSISTANCE AVAILABLE IN THE [facility]
== END 2020-02-18 09:20 | disposition home or self-care (01) ==
LOC: ED 07:48
DX: S39.012A Strain of muscle, fascia and tendon of lower back, initial encounter (principal); M54.2 Cervicalgia; G89.29 Other chronic pain; M25.512 Pain in left shoulder; J44.9 Chronic obstructive pulmonary disease, unspecified; F17.210 Nicotine dependence, cigarettes, uncomplicated; X58.XXXA Exposure to other specified factors, initial encounter; Y93.89 Activity, other specified; Y92.89 Other specified places as the place of occurrence of the external cause; Y99.8 Other external cause status
CPT/HCPCS: 96372; 99283; J1885; J7512

== ENCOUNTER 2020-02-22 20:22 | Inpatient (IN) | payer MEDICAID ==
[~2020-02-22] VITALS: Ht 180.3 cm; Wt 92.9 kg
--- NOTE | 2020-02-22 20:48 | NUR ---
PT HERE FOR NECK PAIN AND KELLER WITH BLURRED VISION X 3 WEEKS. PT HAS BEEN SEEN HERE FOR SIMILAR SYMPTOMS IN THE PAST. PT ALSO COMPLAING OF NUMBNESS TO BILATERAL HANDS. 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 HR ELEVATED. OTHER VSS. PT PLACED ON CARDIAC MINITOR AND PULSE OX. PA AT BEDSIDE. CALL LIGHT IN REACH
[2020-02-22] MEDS ORDERED: DIPHENHYDRAMINE 50 MG/ML, 1ML ONE (21:22)
[2020-02-22] MEDS ORDERED: PROCHLORPERAZINE 5 MG/ML, 2ML ONE (21:22)
[2020-02-22] MEDS ORDERED: KETOROLAC 30 MG/1 ML ONE (21:22)
--- NOTE | 2020-02-22 21:29 | NUR ---
PIV PLACED. PT MEDICATED. MD AT BEDSIDE. CALL LIGHT IN REACH
[2020-02-22] MEDS ORDERED: PROCHLORPERAZINE 5 MG/ML, 2ML IVPush ONE (21:30)
[2020-02-22] MEDS ORDERED: KETOROLAC 30 MG/1 ML IVPush ONE (21:30)
[2020-02-22] MEDS ORDERED: DIPHENHYDRAMINE 50 MG/ML, 1ML IVPush ONE (21:30)
--- NOTE | 2020-02-22 22:00 | NUR ---
MRI SHEET FAXED. PT HAS HAD MRI IN PAST AND IS UPDATED ON POC. HR STILL ELEVATED. OTHER VSS. CALL LIGHT IN REACH
[2020-02-22 22:07] LABS: BASOPHILS % (AUTO) 1 % (0-1); EOSINOPHILS % (AUTO) 3 % (1-7); LYMPHOCYTES % (AUTO) 33 % (22-44); MEAN CORPUSCULAR HEMOGLOBIN 31.9 pg (27.5-34.5); MEAN PLATELET VOLUME 7.4 fL (7.4-10.4); MONOCYTES % (AUTO) 8 % (2-9); NEUTROPHILS % (AUTO) 56 % (42-75); PLATELET COUNT 231 x10^3/uL (130-400); RED BLOOD COUNT 3.85 x10^6/uL (4.38-5.82); RED CELL DISTRIBUTION WIDTH 14.5 % (9.4-14.8)
[2020-02-22 22:10] LABS: MD NO
[2020-02-22 22:11] LABS: HCT (SEDRATE) 36.1 % (39.2-51.8)
[2020-02-22 22:16] LABS: ALBUMIN 3.6 g/dL (3.4-5.0); ANION GAP 5 mmol/L (5-15); CALCIUM 9.6 mg/dL (8.5-10.1); CHLORIDE 106 mmol/L (98-107); CREATININE 0.98 mg/dL (0.7-1.3)
[2020-02-22 22:23] LABS: C-REACTIVE PROTEIN, QUANT 2.81 mg/dL (0.02-0.49)
--- NOTE | 2020-02-22 22:24 | NUR ---
PT TO MRI
--- NOTE | 2020-02-22 23:31 | NUR ---
PT RESTING. HR IMPROVED. VSS. CALL LIGHT IN REACH
[2020-02-23] VITALS (9 sets, daily range): BP systolic 97–167; BP diastolic 65–92
--- NOTE | 2020-02-23 00:35 | NUR ---
PT MARCY. CHANTEL. TO REEVALUATE PT.
[2020-02-23] MEDS ORDERED: HEPARIN wt. based STROKE protocol MC PRN ×2 (01:00→02:00)
[2020-02-23] MEDS ORDERED: DO NOT GIVE XX PRN (01:00)
[2020-02-23] MEDS ORDERED: LABETALOL 5MG/ML, 20ML IV PRN (02:00)
[2020-02-23] MEDS ORDERED: ONDANSETRON 2MG/ML, 2ML IVPush PRN (02:00)
[2020-02-23] MEDS ORDERED: SODIUM CHLORIDE 0.9% 1,000 ML IV SCH (02:00)
[2020-02-23] MEDS ORDERED: HEPARIN 25,000 UNITS/250ML PMX 250 ML ONE (02:03)
[2020-02-23] MEDS: HEPARIN 25,000 UNITS/250ML PMX 250 ML IV PRN (02:42)
--- NOTE | 2020-02-23 02:48 | NUR ---
REPORT TO TESSA GRANADO. HEPARIN STARTED. ANTI XA ORDERED FOR 0842. VSS, CALL LIGHT IN REACH
[2020-02-23] MEDS: ACETAMINOPHEN 650 MG/20.3 ML UDC PO PRN (04:47)
[2020-02-23] MEDS: LIDODERM 5% PATCH TD SCH (04:48)
[2020-02-23 05:24] LABS: AMPHETAMINE SCREEN, URINE Negative (Negative); BARBITURATE SCREEN, URINE Negative (Negative); BENZODIAZEPINE SCREEN, URINE Negative (Negative); CANNABINOID SCREEN, URINE Negative (Negative); COCAINE SCREEN, URINE Negative (Negative); METHADONE SCREEN, URINE Negative (Negative); OPIATE SCREEN, URINE Positive (Negative)
[2020-02-23] MEDS: SUMATRIPTAN 100 MG TABLET PO PRN ×2 (16:16→20:32)
[2020-02-23] MEDS: ATORVASTATIN 80 MG TABLET PO SCH (20:32)
[2020-02-23] MEDS: AMITRIPTYLINE 10 MG TABLET PO SCH (20:32)
[2020-02-24 00:07] VITALS: BP 139/80
[2020-02-24] MEDS: HEPARIN 25,000 UNITS/250ML PMX 250 ML IV PRN ×2 (00:16→17:13)
[2020-02-24] MEDS: ACETAMINOPHEN 650 MG/20.3 ML UDC PO PRN ×2 (00:20→09:48)
[2020-02-24] MEDS: LIDODERM 5% PATCH TD SCH ×2 (05:05→17:07)
[2020-02-24 06:36] LABS: CHOLESTEROL, TOTAL 250 mg/dL (140-239); TRIGLYCERIDES 459 mg/dL (50-200)
[2020-02-24 06:38] LABS: CHOL/HDL RATIO 7.1; HDL CHOL % 14 % (26-37); HDL CHOLESTEROL (DIRECT) 35 mg/dL (40-60)
[2020-02-24 07:09] VITALS: BP 120/78
[2020-02-24 11:46] LABS: INTERNATIONAL NORMALIZED RATIO 0.97 (0.93-1.1); PROTHROMBIN TIME 10.3 Seconds (9.6-11.5)
[2020-02-24] MEDS: WARFARIN MODERAT DOSE PROTOCOL XX SCH (12:00)
[2020-02-24 12:15] VITALS: BP 118/78
[2020-02-24] MEDS ORDERED: BUTALB/APAP/CAFFEINE 50MG/325MG/40MG PO PRN (16:30)
[2020-02-24] MEDS ORDERED: WARFARIN 7.5 MG TABLET PO-COUM ONE (18:00)
[2020-02-24 18:23] VITALS: BP 121/74
[2020-02-24] MEDS: DIVALPROEX 500 MG TABLET.DR PO SCH (19:46)
[2020-02-24] MEDS: ATORVASTATIN 80 MG TABLET PO SCH (19:46)
[2020-02-24] MEDS: AMITRIPTYLINE 10 MG TABLET PO SCH (19:46)
[2020-02-25 00:43] VITALS: BP 126/87
[2020-02-25] MEDS: SUMATRIPTAN 100 MG TABLET PO PRN (01:17)
[2020-02-25 04:00] LABS: INTERNATIONAL NORMALIZED RATIO 0.98 (0.93-1.1); PROTHROMBIN TIME 10.4 Seconds (9.6-11.5)
[2020-02-25] MEDS: LIDODERM 5% PATCH TD SCH ×2 (05:17→20:16)
[2020-02-25] MEDS: PANTOPRAZOLE 40MG TABLET PO SCH (05:30)
[2020-02-25] MEDS: HYDROcodone/APAP 5/325 TABLET PO PRN ×2 (05:31→20:09)
[2020-02-25 06:52] VITALS: BP 138/89
[2020-02-25] MEDS: ALLOPURINOL 300 MG TABLET PO SCH (08:26)
[2020-02-25] MEDS: METOPROLOL SUCCINATE 25 MG TAB.ER.24H PO SCH (08:26)
[2020-02-25] MEDS: DIVALPROEX 500 MG TABLET.DR PO SCH ×2 (08:26→20:09)
[2020-02-25] MEDS: HEPARIN 25,000 UNITS/250ML PMX 250 ML IV PRN (08:31)
[2020-02-25] MEDS: WARFARIN MODERAT DOSE PROTOCOL XX SCH (11:20)
[2020-02-25 12:19] VITALS: BP 116/79
[2020-02-25] MEDS: CYCLOBENZAPRINE 10 MG TABLET PO SCH ×2 (16:06→20:09)
[2020-02-25] MEDS ORDERED: WARFARIN 5 MG TABLET PO-COUM ONE (17:17)
[2020-02-25] MEDS ORDERED: WARFARIN 10 MG TABLET PO-COUM ONE (18:00)
[2020-02-25 18:40] VITALS: BP 121/77
[2020-02-25] MEDS: AMITRIPTYLINE 25 MG TABLET PO SCH (20:09)
[2020-02-25] MEDS: ATORVASTATIN 80 MG TABLET PO SCH (20:16)
[2020-02-26 00:29] VITALS: BP 115/77
[2020-02-26] MEDS: HEPARIN 25,000 UNITS/250ML PMX 250 ML IV PRN ×2 (00:40→13:55)
[2020-02-26 03:22] VITALS: BP 124/84
[2020-02-26] MEDS: HYDROcodone/APAP 5/325 TABLET PO PRN ×3 (03:41→20:45)
[2020-02-26] MEDS: LIDODERM 5% PATCH TD SCH ×2 (05:08→20:45)
[2020-02-26] MEDS: PANTOPRAZOLE 40MG TABLET PO SCH (05:57)
[2020-02-26 06:38] LABS: INTERNATIONAL NORMALIZED RATIO 1.17 (0.93-1.1); PROTHROMBIN TIME 12.4 Seconds (9.6-11.5)
[2020-02-26 07:25] VITALS: BP 118/81
[2020-02-26] MEDS: CYCLOBENZAPRINE 10 MG TABLET PO SCH ×3 (09:27→20:44)
[2020-02-26] MEDS: DIVALPROEX 500 MG TABLET.DR PO SCH ×2 (09:27→20:44)
[2020-02-26] MEDS: METOPROLOL SUCCINATE 25 MG TAB.ER.24H PO SCH (09:27)
[2020-02-26] MEDS: ALLOPURINOL 300 MG TABLET PO SCH (09:27)
[2020-02-26] MEDS: WARFARIN MODERAT DOSE PROTOCOL XX SCH (12:00)
[2020-02-26 12:05] VITALS: BP 115/84
[2020-02-26] MEDS: METOCLOPRAMIDE 5 MG/ML, 2ML IVPush SCH ×2 (16:27→22:10)
[2020-02-26 16:43] VITALS: BP 127/89
[2020-02-26] MEDS ORDERED: WARFARIN 10 MG TABLET PO-COUM ONE (18:00)
[2020-02-26 19:06] VITALS: BP 112/72
[2020-02-26] MEDS: ATORVASTATIN 80 MG TABLET PO SCH (20:44)
[2020-02-26] MEDS: AMITRIPTYLINE 25 MG TABLET PO SCH (20:44)
[2020-02-27 00:38] VITALS: BP 109/77
[2020-02-27] MEDS: HYDROcodone/APAP 5/325 TABLET PO PRN ×3 (02:15→22:48)
[2020-02-27] MEDS: HEPARIN 25,000 UNITS/250ML PMX 250 ML IV PRN ×2 (02:40→14:20)
[2020-02-27] MEDS: LIDODERM 5% PATCH TD SCH ×2 (04:50→21:00)
[2020-02-27 04:57] LABS: INTERNATIONAL NORMALIZED RATIO 1.54 (0.93-1.1); PROTHROMBIN TIME 16.3 Seconds (9.6-11.5)
[2020-02-27] MEDS: PANTOPRAZOLE 40MG TABLET PO SCH (05:34)
[2020-02-27] MEDS: METOCLOPRAMIDE 5 MG/ML, 2ML IVPush SCH ×4 (05:35→22:43)
[2020-02-27 07:31] VITALS: BP 118/78
[2020-02-27] MEDS: ALLOPURINOL 300 MG TABLET PO SCH (08:53)
[2020-02-27] MEDS: METOPROLOL SUCCINATE 25 MG TAB.ER.24H PO SCH (08:53)
[2020-02-27] MEDS: DIVALPROEX 500 MG TABLET.DR PO SCH ×2 (08:53→20:04)
[2020-02-27] MEDS: CYCLOBENZAPRINE 10 MG TABLET PO SCH ×3 (08:54→20:04)
[2020-02-27] MEDS: WARFARIN MODERAT DOSE PROTOCOL XX SCH (12:00)
[2020-02-27 13:35] VITALS: BP 118/79
[2020-02-27] MEDS ORDERED: WARFARIN 7.5 MG TABLET PO-COUM SCH (18:00)
[2020-02-27] MEDS ORDERED: GABAPENTIN 300 MG CAPSULE PO PRN (19:00)
[2020-02-27] MEDS: AMITRIPTYLINE 25 MG TABLET PO SCH (20:03)
[2020-02-27] MEDS: ATORVASTATIN 80 MG TABLET PO SCH (20:04)
[2020-02-27 21:29] VITALS: BP 120/77
[2020-02-28] MEDS ORDERED: GABAPENTIN 300 MG CAPSULE PO PRN (00:30)
[2020-02-28 00:53] VITALS: BP 117/75
[2020-02-28] MEDS: HEPARIN 25,000 UNITS/250ML PMX 250 ML IV PRN ×2 (02:48→14:54)
[2020-02-28] MEDS: LIDODERM 5% PATCH TD SCH ×2 (04:27→21:00)
[2020-02-28] MEDS: METOCLOPRAMIDE 5 MG/ML, 2ML IVPush SCH ×2 (05:51→14:56)
[2020-02-28 06:06] LABS: INTERNATIONAL NORMALIZED RATIO 1.98 (0.93-1.1); PROTHROMBIN TIME 20.8 Seconds (9.6-11.5)
[2020-02-28 08:47] VITALS: BP 125/80
[2020-02-28] MEDS: ALLOPURINOL 300 MG TABLET PO SCH (09:00)
[2020-02-28] MEDS: DIVALPROEX 500 MG TABLET.DR PO SCH ×2 (09:12→21:16)
[2020-02-28] MEDS: PANTOPRAZOLE 40MG TABLET PO SCH (09:13)
[2020-02-28] MEDS: CYCLOBENZAPRINE 10 MG TABLET PO SCH ×3 (09:13→21:16)
[2020-02-28] MEDS: METOPROLOL SUCCINATE 25 MG TAB.ER.24H PO SCH (09:13)
[2020-02-28] MEDS: HYDROcodone/APAP 5/325 TABLET PO PRN (10:18)
[2020-02-28] MEDS ORDERED: HEPARIN wt. based STROKE protocol MC PRN (11:30)
[2020-02-28] MEDS: WARFARIN MODERAT DOSE PROTOCOL XX SCH (12:00)
[2020-02-28 12:27] VITALS: BP 111/76
[2020-02-28] MEDS ORDERED: WARFARIN 5 MG TABLET PO-COUM SCH (18:00)
[2020-02-28] MEDS: GABAPENTIN 300 MG CAPSULE PO SCH ×2 (18:09→21:16)
[2020-02-28] MEDS: KETOROLAC 30 MG/1 ML IVPush PRN (18:11)
[2020-02-28 19:40] VITALS: BP 116/76
[2020-02-28] MEDS: ATORVASTATIN 80 MG TABLET PO SCH (21:16)
[2020-02-28] MEDS: METOCLOPRAMIDE 10MG TABLET PO SCH (21:16)
[2020-02-28] MEDS: AMITRIPTYLINE 25 MG TABLET PO SCH (21:16)
[2020-02-29] MEDS: KETOROLAC 30 MG/1 ML IVPush PRN ×3 (01:11→19:48)
[2020-02-29 01:37] VITALS: BP 111/75
[2020-02-29] MEDS: HEPARIN 25,000 UNITS/250ML PMX 250 ML IV PRN (02:32)
[2020-02-29 04:48] LABS: INTERNATIONAL NORMALIZED RATIO 2.52 (0.93-1.1); PROTHROMBIN TIME 26.5 Seconds (9.6-11.5)
[2020-02-29] MEDS: LIDODERM 5% PATCH TD SCH ×2 (04:49→20:21)
[2020-02-29] MEDS: PANTOPRAZOLE 40MG TABLET PO SCH (05:04)
[2020-02-29 07:15] VITALS: BP 105/68
[2020-02-29] MEDS: GABAPENTIN 300 MG CAPSULE PO SCH ×3 (09:02→19:47)
[2020-02-29] MEDS: METOCLOPRAMIDE 10MG TABLET PO SCH ×2 (09:03→19:47)
[2020-02-29] MEDS: ALLOPURINOL 300 MG TABLET PO SCH (09:04)
[2020-02-29] MEDS: DIVALPROEX 500 MG TABLET.DR PO SCH ×2 (09:05→19:50)
[2020-02-29] MEDS: CYCLOBENZAPRINE 10 MG TABLET PO SCH ×3 (09:06→19:47)
[2020-02-29] MEDS: METOPROLOL SUCCINATE 25 MG TAB.ER.24H PO SCH (09:07)
[2020-02-29] MEDS ORDERED: CYCL-259 PO (09:18)
[2020-02-29] MEDS ORDERED: HYDR-3237 PO (09:18)
[2020-02-29] MEDS ORDERED: WARF-36 PO-COUM ×2 (09:18)
[2020-02-29] MEDS ORDERED: GABA300C PO (09:18)
[2020-02-29] MEDS ORDERED: ATOR-2 PO (09:18)
[2020-02-29 14:13] VITALS: BP 98/63
[2020-02-29] MEDS: WARFARIN MODERAT DOSE PROTOCOL XX SCH (16:47)
[2020-02-29] MEDS ORDERED: HYDROcodone/APAP 5/325 TABLET PO PRN (17:30)
[2020-02-29] MEDS ORDERED: WARFARIN 5 MG TABLET PO-COUM SCH (18:00)
[2020-02-29 19:25] VITALS: BP 117/76
[2020-02-29] MEDS: ATORVASTATIN 80 MG TABLET PO SCH (19:47)
[2020-02-29] MEDS: AMITRIPTYLINE 25 MG TABLET PO SCH (19:49)
[2020-02-29] MEDS: ACETAMINOPHEN 650 MG/20.3 ML UDC PO PRN (23:03)
[2020-03-01 00:07] VITALS: BP 110/71
[2020-03-01 04:32] LABS: INTERNATIONAL NORMALIZED RATIO 2.36 (0.93-1.1); PROTHROMBIN TIME 24.8 Seconds (9.6-11.5)
[2020-03-01] MEDS: LIDODERM 5% PATCH TD SCH ×2 (04:49→20:40)
[2020-03-01] MEDS: KETOROLAC 30 MG/1 ML IVPush PRN (05:35)
[2020-03-01] MEDS: PANTOPRAZOLE 40MG TABLET PO SCH (05:35)
[2020-03-01 06:23] VITALS: BP 101/66
[2020-03-01] MEDS: DIVALPROEX 500 MG TABLET.DR PO SCH ×2 (09:06→20:40)
[2020-03-01] MEDS: METOPROLOL SUCCINATE 25 MG TAB.ER.24H PO SCH (09:08)
[2020-03-01] MEDS: METOCLOPRAMIDE 10MG TABLET PO SCH ×2 (09:09→20:39)
[2020-03-01] MEDS: ALLOPURINOL 300 MG TABLET PO SCH (09:10)
[2020-03-01] MEDS: GABAPENTIN 300 MG CAPSULE PO SCH ×3 (09:10→20:40)
[2020-03-01] MEDS: CYCLOBENZAPRINE 10 MG TABLET PO SCH ×3 (09:10→20:39)
[2020-03-01] MEDS: WARFARIN MODERAT DOSE PROTOCOL XX SCH (12:00)
[2020-03-01 12:16] VITALS: BP 117/76
[2020-03-01 12:41] VITALS: BP 110/53
[2020-03-01] MEDS ORDERED: HYDROcodone/APAP 5/325 TABLET PO PRN (15:15)
[2020-03-01] MEDS: SUMATRIPTAN 100 MG TABLET PO PRN (15:38)
[2020-03-01] MEDS: ACETAMINOPHEN 650 MG/20.3 ML UDC PO PRN (17:36)
[2020-03-01] MEDS ORDERED: WARFARIN 3 MG TABLET PO-COUM SCH (18:00)
[2020-03-01 18:44] VITALS: BP 135/84
[2020-03-01] MEDS: AMITRIPTYLINE 25 MG TABLET PO SCH (20:39)
[2020-03-01] MEDS: ATORVASTATIN 80 MG TABLET PO SCH (20:39)
[2020-03-02 00:33] VITALS: BP 114/75
[2020-03-02] MEDS: ACETAMINOPHEN 650 MG/20.3 ML UDC PO PRN ×3 (02:12→19:37)
[2020-03-02] MEDS: LIDODERM 5% PATCH TD SCH ×2 (04:54→20:09)
[2020-03-02] MEDS: PANTOPRAZOLE 40MG TABLET PO SCH (05:40)
[2020-03-02 05:48] LABS: INTERNATIONAL NORMALIZED RATIO 1.89 (0.93-1.1); PROTHROMBIN TIME 19.9 Seconds (9.6-11.5)
[2020-03-02 06:55] VITALS: BP 118/81
[2020-03-02] MEDS: CYCLOBENZAPRINE 10 MG TABLET PO SCH ×3 (09:26→20:02)
[2020-03-02] MEDS: DIVALPROEX 500 MG TABLET.DR PO SCH ×2 (09:26→20:00)
[2020-03-02] MEDS: GABAPENTIN 300 MG CAPSULE PO SCH ×3 (09:27→20:00)
[2020-03-02] MEDS: METOCLOPRAMIDE 10MG TABLET PO SCH ×2 (09:27→20:00)
[2020-03-02] MEDS: ALLOPURINOL 300 MG TABLET PO SCH (09:28)
[2020-03-02] MEDS: METOPROLOL SUCCINATE 25 MG TAB.ER.24H PO SCH (09:28)
[2020-03-02 11:34] VITALS: BP 137/88
[2020-03-02] MEDS: SUMATRIPTAN 100 MG TABLET PO PRN (11:53)
[2020-03-02] MEDS: WARFARIN MODERAT DOSE PROTOCOL XX SCH (11:54)
[2020-03-02 18:37] VITALS: BP 125/76
[2020-03-02] MEDS ORDERED: WARFARIN 2 MG TABLET PO-COUM ONE (19:58)
[2020-03-02] MEDS ORDERED: WARFARIN 3 MG TABLET PO-COUM ONE (20:00)
[2020-03-02] MEDS: ATORVASTATIN 80 MG TABLET PO SCH (20:00)
[2020-03-02] MEDS: AMITRIPTYLINE 25 MG TABLET PO SCH (20:00)
[2020-03-03] VITALS: BP 105/56
[2020-03-03] MEDS: LIDODERM 5% PATCH TD SCH ×2 (04:26→21:00)
[2020-03-03 05:05] LABS: INTERNATIONAL NORMALIZED RATIO 1.97 (0.93-1.1); PROTHROMBIN TIME 20.7 Seconds (9.6-11.5)
[2020-03-03] MEDS: PANTOPRAZOLE 40MG TABLET PO SCH (05:33)
[2020-03-03 06:30] VITALS: BP 129/84
[2020-03-03] MEDS: GABAPENTIN 300 MG CAPSULE PO SCH ×3 (08:13→22:06)
[2020-03-03] MEDS: DIVALPROEX 500 MG TABLET.DR PO SCH ×2 (08:13→22:05)
[2020-03-03] MEDS: ALLOPURINOL 300 MG TABLET PO SCH (08:13)
[2020-03-03] MEDS: METOCLOPRAMIDE 10MG TABLET PO SCH ×2 (08:13→22:05)
[2020-03-03] MEDS: ACETAMINOPHEN 650 MG/20.3 ML UDC PO PRN ×3 (08:13→22:06)
[2020-03-03] MEDS: CYCLOBENZAPRINE 10 MG TABLET PO SCH ×3 (08:13→22:06)
[2020-03-03] MEDS: METOPROLOL SUCCINATE 25 MG TAB.ER.24H PO SCH (08:13)
[2020-03-03 12:11] VITALS: BP 120/77
[2020-03-03] MEDS: HEPARIN 5,000 UNITS/ML, 1ML SQ SCH (16:56)
[2020-03-03 18:23] VITALS: BP 117/80
[2020-03-03] MEDS: AMITRIPTYLINE 25 MG TABLET PO SCH (22:06)
[2020-03-03] MEDS: ATORVASTATIN 80 MG TABLET PO SCH (22:06)
[2020-03-04 00:43] VITALS: BP 116/72
[2020-03-04] MEDS: HEPARIN 5,000 UNITS/ML, 1ML SQ SCH ×3 (01:00→16:06)
[2020-03-04] MEDS: LIDODERM 5% PATCH TD SCH (05:00)
[2020-03-04 05:18] LABS: INTERNATIONAL NORMALIZED RATIO 2.07 (0.93-1.1); PROTHROMBIN TIME 21.8 Seconds (9.6-11.5)
[2020-03-04] MEDS: PANTOPRAZOLE 40MG TABLET PO SCH (05:20)
[2020-03-04] MEDS: ACETAMINOPHEN 650 MG/20.3 ML UDC PO PRN ×2 (05:20→12:29)
[2020-03-04 06:45] VITALS: BP 111/74
[2020-03-04] MEDS: DIVALPROEX 500 MG TABLET.DR PO SCH (08:32)
[2020-03-04] MEDS: METOPROLOL SUCCINATE 25 MG TAB.ER.24H PO SCH (08:32)
[2020-03-04] MEDS: METOCLOPRAMIDE 10MG TABLET PO SCH (08:32)
[2020-03-04] MEDS: GABAPENTIN 300 MG CAPSULE PO SCH ×2 (08:32→16:06)
[2020-03-04] MEDS: ALLOPURINOL 300 MG TABLET PO SCH (08:32)
[2020-03-04] MEDS: CYCLOBENZAPRINE 10 MG TABLET PO SCH ×2 (08:32→16:06)
[2020-03-04 12:07] VITALS: BP 124/83
== END 2020-03-04 17:05 | disposition home or self-care (01) | DRG 103 ==
LOC: ED 21:07 → EDIP 02-23 01:01 → OBSVTOIN 02-23 01:01 → INTOOBSV 02-23 01:01 → 5SO 02-23 02:40 → 4WST 02-26 04:08 → DCLOUNGE 03-04 16:46
PROVIDERS: ADMIT Family Medicine; ATTEND Internal Medicine
DX: G44.89 Other headache syndrome (principal); F11.20 Opioid dependence, uncomplicated; G89.29 Other chronic pain; D64.9 Anemia, unspecified; E78.1 Pure hyperglyceridemia; F17.200 Nicotine dependence, unspecified, uncomplicated; H53.2 Diplopia; I10 Essential (primary) hypertension; J44.9 Chronic obstructive pulmonary disease, unspecified; K21.9 Gastro-esophageal reflux disease without esophagitis; M10.9 Gout, unspecified; M54.10 Radiculopathy, site unspecified; T45.515A Adverse effect of anticoagulants, initial encounter; F10.129 Alcohol abuse with intoxication, unspecified; G43.909 Migraine, unspecified, not intractable, without status migrainosus; J40 Bronchitis, not specified as acute or chronic; M19.90 Unspecified osteoarthritis, unspecified site; M48.00 Spinal stenosis, site unspecified; M54.16 Radiculopathy, lumbar region; Z59.0 Homelessness; Z76.5 Malingerer [conscious simulation]; Z79.899 Other long term (current) drug therapy; Z86.73 Personal history of transient ischemic attack (TIA), and cerebral infarction without residual deficits; I25.2 Old myocardial infarction; Z82.3 Family history of stroke; Z91.19 Patient's noncompliance with other medical treatment and regimen; Z87.440 Personal history of urinary (tract) infections; Z80.8 Family history of malignant neoplasm of other organs or systems; Z82.49 Family history of ischemic heart disease and other diseases of the circulatory system; Z83.3 Family history of diabetes mellitus; Z88.5 Allergy status to narcotic agent; Z79.01 Long term (current) use of anticoagulants
CPT/HCPCS: 36415; 70496; 70544; 80048; 80061; 80307; 82040; 85025; 85520; 85610; 85651; 86140; 93005; 99285; G0378; J1644; J1885; J2405; J0780; J1200; J2765; J7030

== ENCOUNTER 2020-03-06 05:25 | Emergency (ER) | payer MEDICAID ==
[~2020-03-06] VITALS: Ht 180.3 cm; Wt 92.6 kg
[~2020-03-06 05:25] MED LIST changes: +ATOR-2 PO; +CYCL-259 PO; +GABA300C PO; +WARF-36 PO-COUM
[2020-03-06] MEDS ORDERED: METOCLOPRAMIDE 5 MG/ML, 2ML ONE (06:10)
[2020-03-06] MEDS ORDERED: DIPHENHYDRAMINE 50 MG/ML, 1ML ONE (06:10)
[2020-03-06] MEDS ORDERED: SODIUM CHLORIDE FLUSH 10ML SYR IVF ONE (06:30)
[2020-03-06] MEDS ORDERED: DIPHENHYDRAMINE 50 MG/ML, 1ML IVPush ONE (06:30)
[2020-03-06] MEDS ORDERED: METOCLOPRAMIDE 5 MG/ML, 2ML IVPush ONE (06:30)
[2020-03-06] MEDS ORDERED: SODIUM CHLORIDE 0.9% 1,000ML IVBOLUS ONE (06:30)
[2020-03-06 06:36] LABS: BASOPHILS % (AUTO) 1 % (0-1); EOSINOPHILS % (AUTO) 2 % (1-7); LYMPHOCYTES % (AUTO) 18 % (22-44); MEAN CORPUSCULAR HEMOGLOBIN 30.6 pg (27.5-34.5); MEAN CORPUSCULAR HGB CONC 33.4 g/dL (33.2-36.2); MEAN PLATELET VOLUME 6.4 fL (7.4-10.4); MONOCYTES % (AUTO) 9 % (2-9); NEUTROPHILS % (AUTO) 70 % (42-75); PLATELET COUNT 411 x10^3/uL (130-400); RED BLOOD COUNT 3.56 x10^6/uL (4.38-5.82); RED CELL DISTRIBUTION WIDTH 15.1 % (9.4-14.8)
[2020-03-06 06:45] LABS: MD NO
[2020-03-06 06:48] LABS: ALBUMIN 3.4 g/dL (3.4-5.0); ANION GAP 9 mmol/L (5-15); CALCIUM 10.2 mg/dL (8.5-10.1); CHLORIDE 100 mmol/L (98-107)
[2020-03-06 06:49] LABS: CREATININE 0.98 mg/dL (0.7-1.3)
[2020-03-06 07:14] LABS: INTERNATIONAL NORMALIZED RATIO 1.38 (0.93-1.1); PROTHROMBIN TIME 14.6 Seconds (9.6-11.5)
--- NOTE | 2020-03-06 07:25 | NUR ---
BEDSIDE REPORT AND CARE FROM RADHA GRANADO AT THIS TIME. IN ROOM FOR REPORT AND FOUND PT WITH IV REMOVED, SITE BLEEDING. BLEEDING CONTROLLED AND STOPPPED, DRESSING APPLIED. TIP WAS INTACT TO IV, PT STATES "I MUST HAVE ROLLED OVER AND IT CAME OUT." RESTING COMFORTABLY. DENIES NEED TO USE RESTROOM. BLURRED VISION RESOLVED. REPORTS 01/08 "NECK AND SHOULDER PAIN." FOOT AND LEG PAIN RESOLVED AT THIS TIME. VSS. A&OX4. DISCUSSED IV REMOVAL AND PAIN WITH DR. SUAREZ, NO NEW IV TO BE PLACED PER MD AND NO NEW ORDERS FOR PAIN AT THIS TIME. PT AWAITING RECHECK. CALL LIGHT IN REACH. FALL PRECAUTIONS IN PLACE.
--- NOTE | 2020-03-06 07:53 | NUR ---
MAUREEN MIRELES AT BEDSIDE FOR RECHECK, DISCUSSING POC, PAIN AND TEST RESULTS WITH PT. NO NEW ORDERS RECEIVED, PT TO BE DISCHARGED. WILL PROVIDED TAXI VOUCHER FOR PT PER REQUEST AND ERP OKAY.
[2020-03-06 08:44] VITALS: BP 133/77
--- NOTE | 2020-03-06 08:59 | NUR ---
[employer] [employer] CALLED AND NOTIFIED PT LEFT ON OWN ACCOUNT AND WOULD NOT BE TAKING TAXI ANY LONGER.
--- NOTE | 2020-03-06 08:59 | NUR ---
LATE ENTRY 0850: PT TAKEN TO DISCHARGE DESK VIA WHEELCHAIR PER REQUEST. PT PROVIDED TAXI VOUCHER AND TAXI CALLED AT D/C. PT THEN THREW VOUCHER AT RN AND STATED "I'M NOT GOING TO THAT PLACE NOW, THEY WON'T LET ME IN AND I'LL JUST GO TIM THE STREETS, YOU CAN KEEP THAT CRAP." DISSCUSSED WITH MARKER MAKER CAROL, DR. SUAREZ AND ED TEJA IVEY. ALL AWARE. SECURITY CALLED AND NOTIFIED OF PT'S AGGRESSIVE BEHAVIOR AND REFUSAL OF TAXI THAT WAS OFFERED PER HIS REQUEST. PT AMBULATED OUT OF ER WITH STEADY GAIT WITH ALL BELONGINGS WITH SECURITY PRESENT.
== END 2020-03-06 08:49 | disposition home or self-care (01) ==
LOC: ED 07:59
DX: G43.C0 Periodic headache syndromes in child or adult, not intractable (principal); R79.1 Abnormal coagulation profile; R42 Dizziness and giddiness; R00.0 Tachycardia, unspecified; J44.9 Chronic obstructive pulmonary disease, unspecified; I10 Essential (primary) hypertension; I25.2 Old myocardial infarction; M10.9 Gout, unspecified; Z86.73 Personal history of transient ischemic attack (TIA), and cerebral infarction without residual deficits
CPT/HCPCS: 36415; 80048; 82040; 85025; 85610; 93005; 96361; 96374; 96375; 99284; J1200; J2765; J7030

== ENCOUNTER 2020-03-09 17:41 | Emergency (ER) | payer MEDICAID ==
[~2020-03-09] VITALS: Ht 180.3 cm; Wt 92.8 kg
--- NOTE | 2020-03-09 19:09 | NUR ---
PRODUCTION LEAD: NIL X 1 WHEN CALLED FOR ROOM.
--- NOTE | 2020-03-09 19:22 | NUR ---
PUMP OILER: NIL X 2 WHEN CALLED FOR ROOM.
--- NOTE | 2020-03-09 19:33 | NUR ---
TRAILERS AND MOTOR HOMES SALESPERSON: PT. TO ROOM FROM LOBBY AT THIS TIME.
--- NOTE | 2020-03-09 20:58 | NUR ---
RECEIVED REPORT FROM MARUEEN GRANADO. CARE ASSUMED OF PT AT THIS TIME. FIRST CONTACT WITH PT. 55 Y/O M PRESENTS STATING " PAIN FOR 1.5 DAYS AND SEVERE SWELLLING.'' RATES PAIN 12/08. ARRIVED WITH OWN CHAR WRAP IN PLACE THAT WAS REMOVED FOR US. +SWELLING, ERYTHEMA, WARMTH TO RLE, PEDAL PULSE PRESENT. CAP REFILL BRISK. ASSESSMENT COMPLETED. VSS. CONT PULSE OX, BP MONITORS APPLIED. AWAITING EVAL BY ERP. CALL LIGHT IN REACH. FALL PRECAUTIONS IN PLACE. A&OX4. WARM BLANKETS PROVIDED FOR COMFORT.
--- NOTE | 2020-03-09 21:14 | NUR ---
PT CONTINUES AWAITING RECHECK, EVAL IN ROOM. VSS. CALL LIGHT IN REACH. DENIES NEED TO USE RESTROOM. FALL PRECAUTIONS IN PLACE. WATCHING TV.
[2020-03-09 21:15] VITALS: BP 138/88
--- NOTE | 2020-03-09 21:43 | NUR ---
DANA RN TO BEDSIDE TO ASSIST WITH PT DISCHARGE. PT REQUESTING TO SPEAK WITH MARAL PHILLIPS PRIOR TO D/C. PT PROVIDED DISCHARGE INSTRUCTIONS, VERBALIZED UNDERSTANDING, HANDOUTS IN HAND. MARAL PHILLIPS TO SEE PT
--- NOTE | 2020-03-09 21:50 | NUR ---
MARAL PHILLIPS AT BEDSIDE ADDRESSING PT'S QUESTIONS AND CONCERNS
== END 2020-03-09 21:57 | disposition home or self-care (01) ==
LOC: ED 20:34
DX: I80.01 Phlebitis and thrombophlebitis of superficial vessels of right lower extremity (principal); I10 Essential (primary) hypertension; I25.2 Old myocardial infarction
CPT/HCPCS: 99284

== ENCOUNTER 2020-03-10 02:28 | Emergency (ER) | payer MEDICAID ==
[~2020-03-10] VITALS: Ht 180.3 cm; Wt 92.8 kg
[2020-03-10 02:31] VITALS: BP 141/88
[2020-03-10] MEDS ORDERED: HYDROcodone/APAP 5/325 TABLET ONE (02:52)
[2020-03-10] MEDS ORDERED: APIXABAN 5 MG TABLET ONE (02:52)
[2020-03-10] MEDS ORDERED: APIXABAN 5 MG TABLET PO ONE (03:00)
[2020-03-10] MEDS ORDERED: HYDROcodone/APAP 5/325 TABLET PO ONE (03:00)
--- NOTE | 2020-03-10 03:02 | NUR ---
PT AMBULATORY TO ROOM. PT PROVIDED WITH BLANKET FROM [employer]" TO TAKE WITH HIM UPON D/C. NADN.
--- NOTE | 2020-03-10 03:26 | NUR ---
THIS PT WAS D/C'D FOR SAME COMPLAINT EARLIER WITHIN THIS SHIFT. TOLD TO COME BACK IF PAIN WORSENED.
== END 2020-03-10 03:26 | disposition left against medical advice (07) ==
LOC: ED 02:42
DX: I80.01 Phlebitis and thrombophlebitis of superficial vessels of right lower extremity (principal); M79.661 Pain in right lower leg; I10 Essential (primary) hypertension; I25.2 Old myocardial infarction
CPT/HCPCS: 99283

== ENCOUNTER 2020-03-23 11:39 | Emergency (ER) | payer MEDICAID ==
[~2020-03-23] VITALS: Ht 180.3 cm; Wt 90.3 kg
[2020-03-23 11:46] VITALS: BP 145/92
[2020-03-23] MEDS ORDERED: ACETAMINOPHEN 325 MG TABLET PO ONE (12:30)
[2020-03-23] MEDS ORDERED: KETOROLAC 30 MG/1 ML IM ONE (12:30)
[2020-03-23] MEDS ORDERED: KETOROLAC 30 MG/1 ML ONE (13:04)
[2020-03-23] MEDS ORDERED: ACETAMINOPHEN 325 MG TABLET ONE (13:04)
== END 2020-03-23 13:19 | disposition home or self-care (01) ==
LOC: ED 13:08
DX: S63.502A Unspecified sprain of left wrist, initial encounter (principal); M19.132 Post-traumatic osteoarthritis, left wrist; J44.9 Chronic obstructive pulmonary disease, unspecified; I10 Essential (primary) hypertension; M10.9 Gout, unspecified; Z86.73 Personal history of transient ischemic attack (TIA), and cerebral infarction without residual deficits; F17.210 Nicotine dependence, cigarettes, uncomplicated; W18.30XA Fall on same level, unspecified, initial encounter; Y93.89 Activity, other specified; Y92.009 Unspecified place in unspecified non-institutional (private) residence as the place of occurrence of the external cause; Y99.8 Other external cause status
CPT/HCPCS: 29125; 73110; 96372; 99283; J1885

== ENCOUNTER 2020-04-23 21:51 | Emergency (ER) | payer MEDICAID ==
[~2020-04-23] VITALS: Ht 180.3 cm; Wt 95.0 kg
--- NOTE | 2020-04-23 21:57 | NUR ---
EKG at triage
[2020-04-23 22:40] LABS: BASOPHILS % (AUTO) 1 % (0-1); EOSINOPHILS % (AUTO) 2 % (1-7); LYMPHOCYTES % (AUTO) 33 % (22-44); MEAN CORPUSCULAR HEMOGLOBIN 31.7 pg (27.5-34.5); MEAN CORPUSCULAR HGB CONC 33.2 g/dL (33.2-36.2); MEAN PLATELET VOLUME 7.1 fL (7.4-10.4); MONOCYTES % (AUTO) 8 % (2-9); NEUTROPHILS % (AUTO) 56 % (42-75); PLATELET COUNT 252 x10^3/uL (130-400); RED BLOOD COUNT 4.18 x10^6/uL (4.38-5.82); RED CELL DISTRIBUTION WIDTH 17.6 % (9.4-14.8)
[2020-04-23 22:51] LABS: ALBUMIN 3.4 g/dL (3.4-5.0); ANION GAP 6 mmol/L (5-15); CALCIUM 8.7 mg/dL (8.5-10.1); CHLORIDE 109 mmol/L (98-107); CREATININE 0.94 mg/dL (0.7-1.3); MD NO
--- NOTE | 2020-04-23 22:57 | NUR ---
URINE COLLECTED AND SENT TO LAB
[2020-04-23 23:21] LABS: MICROSCOPIC NOT IND
[2020-04-23 23:30] VITALS: BP 134/85
[2020-04-23] MEDS ORDERED: IBUPROFEN 600 MG TABLET ONE (23:47)
[2020-04-23] MEDS ORDERED: IBUPROFEN 800 MG TABLET ONE (23:49)
[2020-04-24] MEDS ORDERED: IBUPROFEN 800 MG TABLET PO ONE
--- NOTE | 2020-04-24 00:46 | NUR ---
TASK RN: DC EDUCATION PROVIDED,PT DEMONSTATES UNDERSTANDING. PT AMBULATED STEADILY TO DC WITH RN. PROVIDED TAXI VOUCHER FOR SAFE TRANSPORT TO [facility]
[2020-04-24] MEDS ORDERED: COLC0.6T37 PO (15:28)
== END 2020-04-24 00:48 | disposition home or self-care (01) ==
LOC: ED 22:38
DX: G89.11 Acute pain due to trauma (principal); M25.512 Pain in left shoulder; R51.9 Headache, unspecified; I10 Essential (primary) hypertension; J44.9 Chronic obstructive pulmonary disease, unspecified; I25.2 Old myocardial infarction; R94.31 Abnormal electrocardiogram [ECG] [EKG]; Z86.73 Personal history of transient ischemic attack (TIA), and cerebral infarction without residual deficits; W01.0XXA Fall on same level from slipping, tripping and stumbling without subsequent striking against object, initial encounter; Y93.89 Activity, other specified; Y92.89 Other specified places as the place of occurrence of the external cause; Y99.8 Other external cause status
CPT/HCPCS: 36415; 80048; 81003; 82040; 85025; 93005; 99285

== ENCOUNTER 2020-04-24 13:06 | Inpatient (IN) | payer MEDICAID ==
[~2020-04-24] VITALS: Ht 180.3 cm; Wt 88.0 kg
--- NOTE | 2020-04-24 13:52 | NUR ---
POST VOID RESIDUAL IS ZERO. MD NOTIFIED.
[2020-04-24] MEDS ORDERED: DIAZEPAM 5 MG TABLET ONE (15:19)
--- NOTE | 2020-04-24 15:22 | NUR ---
COMMUTATOR ASSEMBLER PER MAR.
[2020-04-24] MEDS ORDERED: COLC0.6T37 PO (15:28)
[2020-04-24] MEDS ORDERED: DIAZEPAM 5 MG TABLET PO ONE (15:30)
[2020-04-24] MEDS ORDERED: MAGNESIUM SULFATE PMX 2GM/50ML 50 ML IV ONE (16:00)
[2020-04-24] MEDS ORDERED: ACETAMINOPHEN 325 MG TABLET PO PRN (16:00)
[2020-04-24] MEDS ORDERED: ONDANSETRON ODT 4 MG PO PRN (16:00)
[2020-04-24] MEDS ORDERED: ONDANSETRON 2MG/ML, 2ML IVPush PRN (16:00)
[2020-04-24] MEDS: NICOTINE 14MG/24 HR PATCH.TD24 TD SCH (16:00)
--- NOTE | 2020-04-24 17:10 | NUR ---
REPORT GIVEN TO RAUDEL GRANADO.
[2020-04-24 17:38] VITALS: BP 152/94
[2020-04-24] MEDS: CYCLOBENZAPRINE 10 MG TABLET PO SCH ×2 (17:49→22:38)
[2020-04-24] MEDS: GABAPENTIN 300 MG CAPSULE PO SCH ×2 (17:49→22:38)
[2020-04-24] MEDS: COLCHICINE 0.6 MG CAPSULE PO SCH (17:49)
[2020-04-24] MEDS: SODIUM CHLORIDE 0.9% 1,000 ML IV SCH (17:51)
[2020-04-24] MEDS: HEPARIN 5,000 UNITS/ML, 1ML SQ SCH (17:51)
[2020-04-24 19:07] VITALS: BP 126/84
[2020-04-24] MEDS: DIVALPROEX 500 MG TABLET.DR PO SCH (21:03)
[2020-04-24] MEDS: LACTOBACILLUS CHEW TABLET PO SCH (21:04)
[2020-04-24] MEDS: ATORVASTATIN 40 MG TABLET PO SCH (21:04)
[2020-04-25 00:39] VITALS: BP 149/91
[2020-04-25] MEDS: HEPARIN 5,000 UNITS/ML, 1ML SQ SCH ×3 (01:56→18:28)
[2020-04-25] MEDS: PANTOPRAZOLE 40MG TABLET PO SCH (05:51)
[2020-04-25] MEDS: ASPIRIN 81 MG TABLET EC PO SCH (05:51)
[2020-04-25 06:28] LABS: BASOPHILS % (AUTO) 1 % (0-1); EOSINOPHILS % (AUTO) 2 % (1-7); LYMPHOCYTES % (AUTO) 34 % (22-44); MEAN CORPUSCULAR HEMOGLOBIN 32.2 pg (27.5-34.5); MEAN CORPUSCULAR HGB CONC 33.7 g/dL (33.2-36.2); MEAN PLATELET VOLUME 7.3 fL (7.4-10.4); MONOCYTES % (AUTO) 8 % (2-9); NEUTROPHILS % (AUTO) 56 % (42-75); PLATELET COUNT 220 x10^3/uL (130-400); RED BLOOD COUNT 3.94 x10^6/uL (4.38-5.82); RED CELL DISTRIBUTION WIDTH 17.3 % (9.4-14.8)
[2020-04-25 06:34] LABS: MD NO
[2020-04-25 06:40] LABS: ANION GAP 6 mmol/L (5-15); CALCIUM 8.4 mg/dL (8.5-10.1); CHLORIDE 110 mmol/L (98-107)
[2020-04-25 06:44] LABS: CREATININE 0.89 mg/dL (0.7-1.3)
[2020-04-25 06:45] LABS: CHOL/HDL RATIO 6.3; CHOLESTEROL, TOTAL 194 mg/dL (140-239); HDL CHOL % 16 % (26-37); HDL CHOLESTEROL (DIRECT) 31 mg/dL (40-60); LDL CHOLESTEROL,CALCULATED 87 mg/dL (54-169); LDL/HDL RATIO 2.8 (0.5-3.0); TRIGLYCERIDES 378 mg/dL (50-200); VLDL CHOLESTEROL 76 mg/dL (0-25)
[2020-04-25 08:30] VITALS: BP 127/81
[2020-04-25] MEDS: SODIUM CHLORIDE 0.9% 1,000 ML IV SCH ×2 (08:43→23:11)
[2020-04-25] MEDS: DIVALPROEX 500 MG TABLET.DR PO SCH ×2 (08:48→19:59)
[2020-04-25] MEDS: LACTOBACILLUS CHEW TABLET PO SCH ×3 (08:48→19:59)
[2020-04-25] MEDS: GABAPENTIN 300 MG CAPSULE PO SCH ×3 (08:48→19:59)
[2020-04-25] MEDS: COLCHICINE 0.6 MG CAPSULE PO SCH (08:48)
[2020-04-25] MEDS: METOPROLOL SUCCINATE 25 MG TAB.ER.24H PO SCH (08:48)
[2020-04-25] MEDS: ALLOPURINOL 300 MG TABLET PO SCH (08:48)
[2020-04-25] MEDS: MAGNESIUM SULFATE PMX 4GM/100M 100 ML IV ONE ×2 (08:51→23:47)
[2020-04-25] MEDS: CYCLOBENZAPRINE 10 MG TABLET PO PRN ×2 (10:11→20:49)
[2020-04-25] MEDS: BACLOFEN 10 MG TABLET PO SCH ×2 (11:32→19:59)
[2020-04-25 12:41] LABS: MICROSCOPIC NOT IND
[2020-04-25 14:00] VITALS: BP 135/85
[2020-04-25] MEDS: NICOTINE 14MG/24 HR PATCH.TD24 TD SCH (16:00)
[2020-04-25] MEDS ORDERED: GADOTERATE 10 MMOL/20 ML VIAL ONE (17:13)
[2020-04-25 18:51] VITALS: BP 153/91
[2020-04-25] MEDS: ATORVASTATIN 40 MG TABLET PO SCH (19:59)
[2020-04-25] MEDS: LIDODERM 5% PATCH TD SCH (23:00)
[2020-04-26 00:20] VITALS: BP 137/84
[2020-04-26] MEDS: LIDODERM 5% PATCH TD SCH (00:37)
[2020-04-26] MEDS: HEPARIN 5,000 UNITS/ML, 1ML SQ SCH ×3 (01:19→17:56)
[2020-04-26] MEDS: PANTOPRAZOLE 40MG TABLET PO SCH (06:41)
[2020-04-26] MEDS: ASPIRIN 81 MG TABLET EC PO SCH (06:41)
[2020-04-26 07:11] VITALS: BP 135/86
[2020-04-26] MEDS: DIVALPROEX 500 MG TABLET.DR PO SCH ×2 (09:47→19:58)
[2020-04-26] MEDS: ALLOPURINOL 300 MG TABLET PO SCH (09:48)
[2020-04-26] MEDS: BACLOFEN 10 MG TABLET PO SCH ×3 (09:48→19:58)
[2020-04-26] MEDS: METOPROLOL SUCCINATE 25 MG TAB.ER.24H PO SCH (09:48)
[2020-04-26] MEDS: COLCHICINE 0.6 MG CAPSULE PO SCH (09:48)
[2020-04-26] MEDS: LACTOBACILLUS CHEW TABLET PO SCH ×3 (09:48→19:58)
[2020-04-26] MEDS: GABAPENTIN 300 MG CAPSULE PO SCH ×3 (09:48→19:57)
[2020-04-26] MEDS: LIDODERM REMOVE PATCH NOTE XX SCH (11:00)
[2020-04-26] MEDS: CYCLOBENZAPRINE 10 MG TABLET PO PRN ×2 (12:31→22:05)
[2020-04-26 13:19] VITALS: BP 127/78
[2020-04-26] MEDS: NICOTINE 14MG/24 HR PATCH.TD24 TD SCH (15:42)
[2020-04-26] MEDS: SODIUM CHLORIDE 0.9% 1,000 ML IV SCH (15:43)
[2020-04-26 19:31] VITALS: BP 143/84
[2020-04-26] MEDS: HYDROcodone/APAP 5/325 TABLET PO PRN (19:57)
[2020-04-26] MEDS: ATORVASTATIN 40 MG TABLET PO SCH (19:58)
[2020-04-27] MEDS: HEPARIN 5,000 UNITS/ML, 1ML SQ SCH ×3 (02:10→18:04)
[2020-04-27] MEDS: HYDROcodone/APAP 5/325 TABLET PO PRN ×4 (02:11→21:49)
[2020-04-27 03:06] VITALS: BP 115/76
[2020-04-27] MEDS: PANTOPRAZOLE 40MG TABLET PO SCH (06:28)
[2020-04-27] MEDS: ASPIRIN 81 MG TABLET EC PO SCH (06:28)
[2020-04-27 08:00] VITALS: BP 122/80
[2020-04-27] MEDS: BACLOFEN 10 MG TABLET PO SCH ×3 (09:00→20:21)
[2020-04-27] MEDS: DIVALPROEX 500 MG TABLET.DR PO SCH ×2 (09:00→20:21)
[2020-04-27] MEDS: ALLOPURINOL 300 MG TABLET PO SCH (09:00)
[2020-04-27] MEDS: GABAPENTIN 300 MG CAPSULE PO SCH ×3 (09:00→20:21)
[2020-04-27] MEDS: LACTOBACILLUS CHEW TABLET PO SCH ×3 (09:01→20:21)
[2020-04-27] MEDS: METOPROLOL SUCCINATE 25 MG TAB.ER.24H PO SCH (09:01)
[2020-04-27] MEDS: SODIUM CHLORIDE 0.9% 1,000 ML IV SCH (09:07)
[2020-04-27] MEDS: COLCHICINE 0.6 MG CAPSULE PO SCH (09:07)
[2020-04-27] MEDS ORDERED: SODIUM BICARBONATE 4.2%, 5ML ONE (10:26)
[2020-04-27] MEDS ORDERED: ROPivacaine/PF 0.2%, 10 ML ONE (10:26)
[2020-04-27] MEDS ORDERED: LIDOCAINE 1%, 10ML ONE (10:26)
[2020-04-27] MEDS ORDERED: BUPIVACAINE/PF 0.5% ONE (10:27)
[2020-04-27] MEDS: LIDODERM REMOVE PATCH NOTE XX SCH (10:31)
[2020-04-27] MEDS: BISACODYL 10 MG SUPP PR SCH (10:31)
[2020-04-27 14:00] VITALS: BP 119/80
[2020-04-27] MEDS: NICOTINE 14MG/24 HR PATCH.TD24 TD SCH (15:26)
[2020-04-27 19:33] VITALS: BP 127/84
[2020-04-27] MEDS: SENNA/DOCUSATE TABLET PO SCH (20:21)
[2020-04-27] MEDS: ATORVASTATIN 40 MG TABLET PO SCH (20:21)
[2020-04-27] MEDS: LIDODERM 5% PATCH TD SCH (20:28)
[2020-04-27] MEDS: CYCLOBENZAPRINE 10 MG TABLET PO PRN (21:49)
[2020-04-28] MEDS: SODIUM CHLORIDE 0.9% 1,000 ML IV SCH ×2 (01:20→18:00)
[2020-04-28 01:40] VITALS: BP 119/83
[2020-04-28] MEDS: HEPARIN 5,000 UNITS/ML, 1ML SQ SCH ×3 (01:49→18:14)
[2020-04-28] MEDS: PANTOPRAZOLE 40MG TABLET PO SCH (06:01)
[2020-04-28] MEDS: ASPIRIN 81 MG TABLET EC PO SCH (06:01)
[2020-04-28] MEDS: HYDROcodone/APAP 5/325 TABLET PO PRN ×3 (06:06→21:42)
[2020-04-28] MEDS: LIDODERM REMOVE PATCH NOTE XX SCH (08:30)
[2020-04-28 08:38] VITALS: BP 120/85
[2020-04-28] MEDS: GABAPENTIN 300 MG CAPSULE PO SCH ×3 (09:00→20:05)
[2020-04-28] MEDS: BACLOFEN 10 MG TABLET PO SCH ×3 (09:47→20:04)
[2020-04-28] MEDS: METOPROLOL SUCCINATE 25 MG TAB.ER.24H PO SCH (09:47)
[2020-04-28] MEDS: LACTOBACILLUS CHEW TABLET PO SCH ×3 (09:48→20:04)
[2020-04-28] MEDS: ALLOPURINOL 300 MG TABLET PO SCH (09:48)
[2020-04-28] MEDS: DIVALPROEX 500 MG TABLET.DR PO SCH ×2 (09:48→20:04)
[2020-04-28] MEDS: BISACODYL 10 MG SUPP PR SCH (09:49)
[2020-04-28] MEDS: COLCHICINE 0.6 MG CAPSULE PO SCH (10:24)
[2020-04-28 12:03] VITALS: BP 131/82
[2020-04-28] MEDS: NICOTINE 14MG/24 HR PATCH.TD24 TD SCH (15:25)
[2020-04-28 19:52] VITALS: BP 125/76
[2020-04-28] MEDS: SENNA/DOCUSATE TABLET PO SCH (20:04)
[2020-04-28] MEDS: ATORVASTATIN 40 MG TABLET PO SCH (20:04)
[2020-04-28] MEDS: CYCLOBENZAPRINE 10 MG TABLET PO PRN (20:04)
[2020-04-28] MEDS: LIDODERM 5% PATCH TD SCH (20:04)
[2020-04-29 01:25] VITALS: BP 140/89
[2020-04-29] MEDS: HEPARIN 5,000 UNITS/ML, 1ML SQ SCH ×3 (02:17→17:17)
[2020-04-29] MEDS: ASPIRIN 81 MG TABLET EC PO SCH (04:56)
[2020-04-29] MEDS: PANTOPRAZOLE 40MG TABLET PO SCH (04:56)
[2020-04-29] MEDS: LIDODERM REMOVE PATCH NOTE XX SCH (08:30)
[2020-04-29 08:35] VITALS: BP 114/76
[2020-04-29] MEDS: BACLOFEN 10 MG TABLET PO SCH ×3 (08:50→21:03)
[2020-04-29] MEDS: LACTOBACILLUS CHEW TABLET PO SCH ×3 (08:50→21:03)
[2020-04-29] MEDS: GABAPENTIN 300 MG CAPSULE PO SCH ×3 (08:50→21:03)
[2020-04-29] MEDS: ALLOPURINOL 300 MG TABLET PO SCH (08:51)
[2020-04-29] MEDS: METOPROLOL SUCCINATE 25 MG TAB.ER.24H PO SCH (08:51)
[2020-04-29] MEDS: DIVALPROEX 500 MG TABLET.DR PO SCH ×2 (08:51→21:03)
[2020-04-29] MEDS: COLCHICINE 0.6 MG CAPSULE PO SCH (08:51)
[2020-04-29] MEDS: BISACODYL 10 MG SUPP PR SCH (08:51)
[2020-04-29] MEDS: SODIUM CHLORIDE 0.9% 1,000 ML IV SCH (09:49)
[2020-04-29] MEDS: HYDROcodone/APAP 5/325 TABLET PO PRN ×2 (12:40→18:29)
[2020-04-29 14:00] VITALS: BP 125/80
[2020-04-29] MEDS: NICOTINE 14MG/24 HR PATCH.TD24 TD SCH (15:13)
[2020-04-29] MEDS: CYCLOBENZAPRINE 10 MG TABLET PO PRN (17:21)
[2020-04-29 20:24] VITALS: BP 115/82
[2020-04-29] MEDS: LIDODERM 5% PATCH TD SCH (20:30)
[2020-04-29] MEDS: ATORVASTATIN 40 MG TABLET PO SCH (21:03)
[2020-04-29] MEDS: SENNA/DOCUSATE TABLET PO SCH (21:03)
[2020-04-30 01:47] VITALS: BP 127/84
[2020-04-30] MEDS: HEPARIN 5,000 UNITS/ML, 1ML SQ SCH ×3 (01:57→16:05)
[2020-04-30] MEDS: HYDROcodone/APAP 5/325 TABLET PO PRN ×2 (01:58→21:52)
[2020-04-30] MEDS: CYCLOBENZAPRINE 10 MG TABLET PO PRN (01:58)
[2020-04-30] MEDS: SODIUM CHLORIDE 0.9% 1,000 ML IV SCH ×2 (03:20→20:24)
[2020-04-30] MEDS: ASPIRIN 81 MG TABLET EC PO SCH (06:03)
[2020-04-30] MEDS: PANTOPRAZOLE 40MG TABLET PO SCH (06:03)
[2020-04-30 07:23] VITALS: BP 118/83
[2020-04-30] MEDS: BACLOFEN 10 MG TABLET PO SCH ×3 (08:39→20:21)
[2020-04-30] MEDS: ALLOPURINOL 300 MG TABLET PO SCH (08:39)
[2020-04-30] MEDS: GABAPENTIN 300 MG CAPSULE PO SCH ×3 (08:39→20:21)
[2020-04-30] MEDS: METOPROLOL SUCCINATE 25 MG TAB.ER.24H PO SCH (08:39)
[2020-04-30] MEDS: DIVALPROEX 500 MG TABLET.DR PO SCH ×2 (08:40→20:21)
[2020-04-30] MEDS: LACTOBACILLUS CHEW TABLET PO SCH ×3 (08:40→20:21)
[2020-04-30] MEDS: BISACODYL 10 MG SUPP PR SCH (08:41)
[2020-04-30] MEDS: LIDODERM REMOVE PATCH NOTE XX SCH (08:44)
[2020-04-30] MEDS: COLCHICINE 0.6 MG CAPSULE PO SCH (09:17)
[2020-04-30 12:26] VITALS: BP 128/85
[2020-04-30] MEDS: NICOTINE 14MG/24 HR PATCH.TD24 TD SCH (16:05)
[2020-04-30] MEDS: SENNA/DOCUSATE TABLET PO SCH (20:21)
[2020-04-30] MEDS: ATORVASTATIN 40 MG TABLET PO SCH (20:21)
[2020-04-30 20:32] VITALS: BP 129/91
[2020-04-30] MEDS: LIDODERM 5% PATCH TD SCH (20:33)
[2020-05-01] MEDS: HEPARIN 5,000 UNITS/ML, 1ML SQ SCH ×3 (00:38→16:51)
[2020-05-01 02:06] VITALS: BP 134/91
[2020-05-01] MEDS: PANTOPRAZOLE 40MG TABLET PO SCH (05:26)
[2020-05-01] MEDS: ASPIRIN 81 MG TABLET EC PO SCH (05:27)
[2020-05-01 07:00] VITALS: BP 132/100
[2020-05-01] MEDS: METOPROLOL SUCCINATE 25 MG TAB.ER.24H PO SCH (08:22)
[2020-05-01] MEDS: COLCHICINE 0.6 MG CAPSULE PO SCH (08:22)
[2020-05-01] MEDS: DIVALPROEX 500 MG TABLET.DR PO SCH ×2 (08:22→20:25)
[2020-05-01] MEDS: BISACODYL 10 MG SUPP PR SCH (08:23)
[2020-05-01] MEDS: ALLOPURINOL 300 MG TABLET PO SCH (08:23)
[2020-05-01] MEDS: LACTOBACILLUS CHEW TABLET PO SCH ×3 (08:23→20:24)
[2020-05-01] MEDS: LIDODERM REMOVE PATCH NOTE XX SCH (08:23)
[2020-05-01] MEDS: GABAPENTIN 300 MG CAPSULE PO SCH ×3 (08:23→20:25)
[2020-05-01] MEDS: BACLOFEN 10 MG TABLET PO SCH ×3 (08:23→20:25)
[2020-05-01] MEDS: SODIUM CHLORIDE 0.9% 1,000 ML IV SCH (11:20)
[2020-05-01 14:53] VITALS: BP 123/87
[2020-05-01] MEDS: NICOTINE 14MG/24 HR PATCH.TD24 TD SCH (16:51)
[2020-05-01 19:39] VITALS: BP 128/84
[2020-05-01] MEDS: SENNA/DOCUSATE TABLET PO SCH (20:24)
[2020-05-01] MEDS: ATORVASTATIN 40 MG TABLET PO SCH (20:25)
[2020-05-01] MEDS: HYDROcodone/APAP 5/325 TABLET PO PRN (20:25)
[2020-05-01] MEDS: LIDODERM 5% PATCH TD SCH (20:25)
[2020-05-02 01:35] VITALS: BP 135/90
[2020-05-02] MEDS: HEPARIN 5,000 UNITS/ML, 1ML SQ SCH ×4 (02:29→16:43)
[2020-05-02] MEDS: SODIUM CHLORIDE 0.9% 1,000 ML IV SCH ×2 (02:29→20:42)
[2020-05-02] MEDS: HYDROcodone/APAP 5/325 TABLET PO PRN ×3 (02:36→16:43)
[2020-05-02] MEDS: CYCLOBENZAPRINE 10 MG TABLET PO PRN ×3 (02:36→20:46)
[2020-05-02] MEDS: PANTOPRAZOLE 40MG TABLET PO SCH (05:23)
[2020-05-02] MEDS: ASPIRIN 81 MG TABLET EC PO SCH (05:23)
[2020-05-02 07:09] VITALS: BP_SYST 130; BP_SYST 158; BP_DIAS 90; BP_DIAS 99
[2020-05-02] MEDS: GABAPENTIN 300 MG CAPSULE PO SCH ×3 (08:54→20:40)
[2020-05-02] MEDS: BACLOFEN 10 MG TABLET PO SCH ×3 (08:55→20:41)
[2020-05-02] MEDS: LACTOBACILLUS CHEW TABLET PO SCH ×3 (08:55→20:41)
[2020-05-02] MEDS: ALLOPURINOL 300 MG TABLET PO SCH (08:55)
[2020-05-02] MEDS: METOPROLOL SUCCINATE 25 MG TAB.ER.24H PO SCH (08:55)
[2020-05-02] MEDS: DIVALPROEX 500 MG TABLET.DR PO SCH ×2 (08:55→20:41)
[2020-05-02] MEDS: COLCHICINE 0.6 MG CAPSULE PO SCH (08:56)
[2020-05-02] MEDS: LIDODERM REMOVE PATCH NOTE XX SCH (08:56)
[2020-05-02] MEDS: BISACODYL 10 MG SUPP PR SCH (08:56)
[2020-05-02 14:30] VITALS: BP 149/87
[2020-05-02] MEDS: NICOTINE 14MG/24 HR PATCH.TD24 TD SCH (16:45)
[2020-05-02] MEDS: ATORVASTATIN 40 MG TABLET PO SCH (20:41)
[2020-05-02] MEDS: SENNA/DOCUSATE TABLET PO SCH (20:41)
[2020-05-02] MEDS: LIDODERM 5% PATCH TD SCH (20:42)
[2020-05-02 20:48] VITALS: BP 125/86
[2020-05-03] MEDS: HYDROcodone/APAP 5/325 TABLET PO PRN ×4 (00:51→22:47)
[2020-05-03] MEDS: HEPARIN 5,000 UNITS/ML, 1ML SQ SCH ×3 (02:02→18:14)
[2020-05-03 02:36] VITALS: BP 150/88
[2020-05-03] MEDS: PANTOPRAZOLE 40MG TABLET PO SCH (06:14)
[2020-05-03] MEDS: ASPIRIN 81 MG TABLET EC PO SCH (06:15)
[2020-05-03 08:03] VITALS: BP 145/91
[2020-05-03] MEDS: BISACODYL 10 MG SUPP PR SCH (08:17)
[2020-05-03] MEDS: BACLOFEN 10 MG TABLET PO SCH ×3 (08:25→22:37)
[2020-05-03] MEDS: DIVALPROEX 500 MG TABLET.DR PO SCH ×2 (08:25→22:37)
[2020-05-03] MEDS: GABAPENTIN 300 MG CAPSULE PO SCH ×3 (08:25→22:37)
[2020-05-03] MEDS: METOPROLOL SUCCINATE 25 MG TAB.ER.24H PO SCH (08:25)
[2020-05-03] MEDS: LACTOBACILLUS CHEW TABLET PO SCH ×3 (08:25→22:37)
[2020-05-03] MEDS: ALLOPURINOL 300 MG TABLET PO SCH (08:25)
[2020-05-03] MEDS: COLCHICINE 0.6 MG CAPSULE PO SCH (08:25)
[2020-05-03] MEDS: LIDODERM REMOVE PATCH NOTE XX SCH (08:26)
[2020-05-03 13:26] VITALS: BP 120/82
[2020-05-03] MEDS: SODIUM CHLORIDE 0.9% 1,000 ML IV SCH (14:40)
[2020-05-03] MEDS: NICOTINE 14MG/24 HR PATCH.TD24 TD SCH (16:36)
[2020-05-03] MEDS: CYCLOBENZAPRINE 10 MG TABLET PO PRN (16:40)
[2020-05-03 19:57] VITALS: BP 149/92
[2020-05-03] MEDS: LIDODERM 5% PATCH TD SCH (20:30)
[2020-05-03] MEDS: ATORVASTATIN 40 MG TABLET PO SCH (22:37)
[2020-05-03] MEDS: SENNA/DOCUSATE TABLET PO SCH (22:38)
[2020-05-04] MEDS: CYCLOBENZAPRINE 10 MG TABLET PO PRN ×2 (01:43→10:51)
[2020-05-04] MEDS: HEPARIN 5,000 UNITS/ML, 1ML SQ SCH ×2 (01:44→10:52)
[2020-05-04 03:04] VITALS: BP 124/76
[2020-05-04] MEDS: PANTOPRAZOLE 40MG TABLET PO SCH (05:39)
[2020-05-04] MEDS: HYDROcodone/APAP 5/325 TABLET PO PRN ×2 (05:39→13:37)
[2020-05-04] MEDS: ASPIRIN 81 MG TABLET EC PO SCH (05:39)
[2020-05-04] MEDS: SODIUM CHLORIDE 0.9% 1,000 ML IV SCH (05:39)
[2020-05-04 07:10] VITALS: BP 136/86
[2020-05-04] MEDS: GABAPENTIN 300 MG CAPSULE PO SCH ×2 (07:43→13:37)
[2020-05-04] MEDS: ALLOPURINOL 300 MG TABLET PO SCH (07:43)
[2020-05-04] MEDS: BACLOFEN 10 MG TABLET PO SCH ×2 (07:43→13:38)
[2020-05-04] MEDS: COLCHICINE 0.6 MG CAPSULE PO SCH (07:43)
[2020-05-04] MEDS: DIVALPROEX 500 MG TABLET.DR PO SCH (07:43)
[2020-05-04] MEDS: LACTOBACILLUS CHEW TABLET PO SCH ×2 (07:43→13:38)
[2020-05-04] MEDS: METOPROLOL SUCCINATE 25 MG TAB.ER.24H PO SCH (07:43)
[2020-05-04] MEDS: BISACODYL 10 MG SUPP PR SCH (07:44)
[2020-05-04] MEDS: LIDODERM REMOVE PATCH NOTE XX SCH (07:44)
[2020-05-04] MEDS ORDERED: ATOR40TA78 PO (10:13)
[2020-05-04] MEDS ORDERED: ASPI81TA45 PO (10:13)
[2020-05-04] MEDS ORDERED: METO25TA91 PO (10:13)
[2020-05-04] MEDS ORDERED: PRED5TAB PO (10:13)
[2020-05-04] MEDS ORDERED: ALLO300T PO (10:13)
[2020-05-04] MEDS ORDERED: DIVA-61 PO (10:13)
[2020-05-04] MEDS ORDERED: COLC0.6T37 PO (10:13)
[2020-05-04] MEDS ORDERED: GABA300C PO (10:13)
[2020-05-04] MEDS ORDERED: PANT40TA6 PO (10:13)
[2020-05-04 13:35] VITALS: BP 153/98
[2020-05-04] MEDS: NICOTINE 14MG/24 HR PATCH.TD24 TD SCH (13:37)
== END 2020-05-04 14:23 | disposition home or self-care (01) | DRG 564 ==
LOC: ED 13:52 → EDIP 15:17 → 4NE 17:29 → DCLOUNGE 05-04 14:08
PROVIDERS: ADMIT Family Medicine; ATTEND Family Medicine
PROC: 0S9C3ZX Drainage of Right Knee Joint, Percutaneous Approach, Diagnostic (ICD-10-PCS; principal; 2020-04-27)
DX: M25.461 Effusion, right knee (principal); G08 Intracranial and intraspinal phlebitis and thrombophlebitis; G82.20 Paraplegia, unspecified; M17.11 Unilateral primary osteoarthritis, right knee; E83.42 Hypomagnesemia; M1A.9XX0 Chronic gout, unspecified, without tophus (tophi); G89.11 Acute pain due to trauma; F17.210 Nicotine dependence, cigarettes, uncomplicated; G47.00 Insomnia, unspecified; I10 Essential (primary) hypertension; J44.9 Chronic obstructive pulmonary disease, unspecified; K59.00 Constipation, unspecified; M06.00 Rheumatoid arthritis without rheumatoid factor, unspecified site; M48.02 Spinal stenosis, cervical region; G89.29 Other chronic pain; R29.6 Repeated falls; M62.838 Other muscle spasm; Z59.0 Homelessness; Z86.73 Personal history of transient ischemic attack (TIA), and cerebral infarction without residual deficits; Z82.3 Family history of stroke; Z88.5 Allergy status to narcotic agent
CPT/HCPCS: 36415; 73560; 77002; 99285; A9575; J3490; 70450; 72156; 72157; 80048; 80061; 81003; 82330; 83735; 85025; 86430; 87070; 87075; 87205; 93005; G0378; J1644; J2795; J3475; J7030; J7512

== ENCOUNTER 2020-05-17 20:56 | Emergency (ER) | payer MEDICAID ==
[~2020-05-17] VITALS: Ht 182.9 cm; Wt 83.6 kg
[~2020-05-17 20:56] MED LIST changes: +ASPI81TA45 PO; +ATOR40TA78 PO; +PRED5TAB PO
[2020-05-17] MEDS ORDERED: ASPIRIN 81 MG TABLET CHEW ONE (21:27)
[2020-05-17] MEDS ORDERED: ASPIRIN 81 MG TABLET CHEW PO ONE (21:30)
[2020-05-17 21:52] LABS: BASOPHILS % (AUTO) 0 % (0-1); EOSINOPHILS % (AUTO) 0 % (1-7); LYMPHOCYTES % (AUTO) 10 % (22-44); MEAN CORPUSCULAR HEMOGLOBIN 31.8 pg (27.5-34.5); MEAN CORPUSCULAR HGB CONC 33.8 g/dL (33.2-36.2); MEAN PLATELET VOLUME 7.7 fL (7.4-10.4); MONOCYTES % (AUTO) 3 % (2-9); NEUTROPHILS % (AUTO) 87 % (42-75); PLATELET COUNT 345 x10^3/uL (130-400); RED BLOOD COUNT 4.56 x10^6/uL (4.38-5.82); RED CELL DISTRIBUTION WIDTH 16.4 % (9.4-14.8)
[2020-05-17 21:58] LABS: ALBUMIN 3.9 g/dL (3.4-5.0); ANION GAP 7 mmol/L (5-15); CALCIUM 9.4 mg/dL (8.5-10.1); CHLORIDE 103 mmol/L (98-107); CREATININE 0.98 mg/dL (0.7-1.3)
[2020-05-17 22:02] LABS: TROPONIN I < 0.015 ng/mL (0.000-0.045)
--- NOTE | 2020-05-17 22:12 | NUR ---
This pt has a hx of an IN "13-14 years ago" and 2 strokes. Pt was taken off his blood thinner approx 3 years ago. Pt was immediately connected to cardiac, BP and O2 monitors. Call [facility] in reach. All needs met at this time.
[2020-05-17 22:16] LABS: MD SCAN
[2020-05-17 22:27] VITALS: BP 119/76
--- NOTE | 2020-05-17 22:35 | NUR ---
Nancy saunders in [facility] - 05/17/20 at 2236 by JEANNINE Pt refused d/c irwin.
--- NOTE | 2020-05-17 22:37 | NUR ---
Previous note charted on wrong pt.
== END 2020-05-17 22:47 | disposition home or self-care (01) ==
LOC: ED 21:15
DX: R07.89 Other chest pain (principal); R00.0 Tachycardia, unspecified; I10 Essential (primary) hypertension; I25.10 Atherosclerotic heart disease of native coronary artery without angina pectoris; J44.9 Chronic obstructive pulmonary disease, unspecified; I25.2 Old myocardial infarction; F17.210 Nicotine dependence, cigarettes, uncomplicated; Z86.73 Personal history of transient ischemic attack (TIA), and cerebral infarction without residual deficits
CPT/HCPCS: 36415; 71045; 80048; 82040; 84484; 85025; 85379; 93005; 99285; 99406

== ENCOUNTER 2020-05-23 20:56 | Emergency (ER) | payer MEDICAID ==
[~2020-05-23] VITALS: Ht 180.3 cm; Wt 88.3 kg
[~2020-05-23 20:56] MED LIST changes: +HYDR-1067 PO; -HYDR-3240 PO
--- NOTE | 2020-05-23 21:10 | NUR ---
late entry d/t pt care: pt reports coming into ed tonight for a sore throat, cough, fatigue and some nausea/diarrhea. pt states he hasnt felt well for "a few days". pt gross neuro intact, placed on gurney, bed in lowest, placed on spo2/bp monitoring at this time. provided warm blankets for comfort. [facility]
[2020-05-23] MEDS ORDERED: ONDANSETRON ODT 8 MG PO PRN (21:30)
[2020-05-23] MEDS ORDERED: ONDANSETRON ODT 8 MG ONE (21:44)
--- NOTE | 2020-05-23 21:49 | NUR ---
PT MEDICATED PER JUN, , RESTING ON GURNEY, NO CHANGE IN CONDITION. WCTM.
[2020-05-23 22:22] VITALS: BP 136/80
--- NOTE | 2020-05-23 22:40 | NUR ---
pt ambulated with O2 sats maintaining above 90% throughout. Pt nad, back in [facility], gurney in [facility], rails engaged, call light on lap, denies additional questions or needs at this time. wctm. pt denies any nausea at this time despite consuming water.
[2020-05-23 22:55] LABS: BASOPHILS % (AUTO) 1 % (0-1); EOSINOPHILS % (AUTO) 4 % (1-7); LYMPHOCYTES % (AUTO) 32 % (22-44); MEAN CORPUSCULAR HEMOGLOBIN 31.5 pg (27.5-34.5); MEAN CORPUSCULAR HGB CONC 33.2 g/dL (33.2-36.2); MEAN PLATELET VOLUME 7.8 fL (7.4-10.4); MONOCYTES % (AUTO) 10 % (2-9); NEUTROPHILS % (AUTO) 54 % (42-75); PLATELET COUNT 170 x10^3/uL (130-400); RED BLOOD COUNT 4.24 x10^6/uL (4.38-5.82); RED CELL DISTRIBUTION WIDTH 15.9 % (9.4-14.8)
[2020-05-23 22:59] LABS: ALBUMIN 3.8 g/dL (3.4-5.0); ANION GAP 4 mmol/L (5-15); CHLORIDE 106 mmol/L (98-107); CREATININE 0.91 mg/dL (0.7-1.3)
[2020-05-23 23:01] LABS: MD NO
--- NOTE | 2020-05-23 23:06 | NUR ---
pt tolerated fluids well. nad, no change in condition, wctm.
--- NOTE | 2020-05-23 23:17 | NUR ---
Patientr given discharge instructions and they have confirmed that they understand the instructions. Patient ambulatory with steady gait. nad, denies additional questions or needs, pt provided taxi voucher, no personal belongings left in room after dc.
== END 2020-05-23 23:44 | disposition home or self-care (01) ==
LOC: ED 23:17
DX: J06.9 Acute upper respiratory infection, unspecified (principal); Z20.822 Contact with and (suspected) exposure to COVID-19; B34.9 Viral infection, unspecified; R06.02 Shortness of breath; R51.9 Headache, unspecified; M79.10 Myalgia, unspecified site; R50.9 Fever, unspecified; R19.7 Diarrhea, unspecified; R11.2 Nausea with vomiting, unspecified; M10.9 Gout, unspecified; I25.2 Old myocardial infarction; I25.10 Atherosclerotic heart disease of native coronary artery without angina pectoris; F17.210 Nicotine dependence, cigarettes, uncomplicated; Z88.9 Allergy status to unspecified drugs, medicaments and biological substances; Z72.9 Problem related to lifestyle, unspecified; Z86.73 Personal history of transient ischemic attack (TIA), and cerebral infarction without residual deficits
CPT/HCPCS: 71045; 80048; 80320; 82040; 85025; 87635; 93005; 99285; 99406; Q0162; G0480

== ENCOUNTER 2020-08-18 16:56 | Inpatient (IN) | payer MEDICAID ==
[~2020-08-18] VITALS: Ht 180.3 cm; Wt 95.8 kg
[~2020-08-18 16:56] MED LIST changes: -CYCL-259 PO; +CYCL10TA2 PO; -HYDR-1067 PO; +HYDR-2214 PO; -LISI-424 PO; +LISI-606 PO; +METH-640 PO; -METH750T2 PO
[2020-08-18] MEDS ORDERED: SODIUM CHLORIDE 0.9% 1,000ML IVBOLUS ONE (18:30)
[2020-08-18] MEDS ORDERED: ACETAMINOPHEN 500 MG TABLET PO ONE (18:30)
[2020-08-18] MEDS ORDERED: METHOCARBAMOL 750 MG TABLET PO ONE (18:30)
[2020-08-18] MEDS ORDERED: METHOCARBAMOL 750 MG TABLET ONE (18:30)
[2020-08-18] MEDS ORDERED: ACETAMINOPHEN 500 MG TABLET ONE (18:31)
[2020-08-18 18:43] LABS: BASOPHILS % (AUTO) 1 % (0-1); EOSINOPHILS % (AUTO) 1 % (1-7); LYMPHOCYTES % (AUTO) 34 % (22-44); MEAN CORPUSCULAR HEMOGLOBIN 32.7 pg (27.5-34.5); MEAN PLATELET VOLUME 6.8 fL (7.4-10.4); MONOCYTES % (AUTO) 8 % (2-9); NEUTROPHILS % (AUTO) 57 % (42-75); PLATELET COUNT 243 x10^3/uL (130-400); RED BLOOD COUNT 4.42 x10^6/uL (4.38-5.82); RED CELL DISTRIBUTION WIDTH 15.7 % (9.4-14.8)
[2020-08-18 18:46] LABS: MD NO
[2020-08-18 18:51] LABS: ANION GAP 6 mmol/L (5-15); CALCIUM 8.8 mg/dL (8.5-10.1); CHLORIDE 109 mmol/L (98-107)
--- NOTE | 2020-08-18 18:56 | NUR ---
MEDS PER MAR, LABS PEDING, IVF INFUSING. REPORT TO HARMAN GRANADO.
--- NOTE | 2020-08-18 19:04 | NUR ---
Report received from LOY Sarabia. This RN to assume care.
[2020-08-18 19:52] LABS: AMPHETAMINE SCREEN, URINE Negative (Negative); BARBITURATE SCREEN, URINE Negative (Negative); BENZODIAZEPINE SCREEN, URINE Negative (Negative); CANNABINOID SCREEN, URINE Negative (Negative); COCAINE SCREEN, URINE Negative (Negative); METHADONE SCREEN, URINE Negative (Negative); OPIATE SCREEN, URINE Negative (Negative)
[2020-08-18 19:53] LABS: MICROSCOPIC INDICATED
[2020-08-18] MEDS ORDERED: LORazepam 2 MG/ML, 1ML IVPush ONE (21:00)
[2020-08-18] MEDS ORDERED: MAGNESIUM SULFATE PMX 2GM/50ML 50 ML IV ONE (21:00)
[2020-08-18] MEDS ORDERED: MAGNESIUM SULFATE PMX 2GM/50ML 50 ML ONE (21:11)
[2020-08-18] MEDS ORDERED: LORazepam 2 MG/ML, 1ML ONE (21:12)
--- NOTE | 2020-08-18 21:20 | NUR ---
Patient c/o numbness and spasms to bilat low extremities.
--- NOTE | 2020-08-18 21:24 | NUR ---
Meds admin per mar. Castaneda provided.
--- NOTE | 2020-08-18 22:22 | NUR ---
Patient sleeping in gurney. Respirations even and unlabored. Awaiting meds to be completed.
--- NOTE | 2020-08-18 23:20 | NUR ---
Mag infusion complete. Patient states his legs still feel numb. ERP aware.
[2020-08-19] MEDS ORDERED: ONDANSETRON 2MG/ML, 2ML IVPush PRN (00:30)
[2020-08-19] MEDS ORDERED: ACETAMINOPHEN 325 MG TABLET PO PRN (00:30)
[2020-08-19] MEDS ORDERED: BACLOFEN 10 MG TABLET PO ONE ×2 (00:30→19:00)
[2020-08-19] MEDS ORDERED: BACLOFEN 10 MG TABLET PO PRN (00:30)
--- NOTE | 2020-08-19 01:06 | NUR ---
Report given to LOY Pastor. Patient to be transferred to room 344.
[2020-08-19 01:22] VITALS: BP_SYST 160; BP_SYST 165; BP_DIAS 100
[2020-08-19 03:04] VITALS: BP 128/77
[2020-08-19] MEDS: PANTOPRAZOLE 40MG TABLET PO SCH (06:14)
[2020-08-19] MEDS: ASPIRIN 81 MG TABLET EC PO SCH (06:14)
[2020-08-19 07:11] VITALS: BP 143/93
[2020-08-19 08:28] LABS: ANION GAP 7 mmol/L (5-15); CALCIUM 8.4 mg/dL (8.5-10.1); CHLORIDE 109 mmol/L (98-107)
[2020-08-19 08:29] LABS: CREATININE 0.91 mg/dL (0.7-1.3)
[2020-08-19] MEDS: DIVALPROEX 500 MG TABLET.DR PO SCH ×2 (08:30→21:16)
[2020-08-19] MEDS: METOPROLOL SUCCINATE 25 MG TAB.ER.24H PO SCH (08:30)
[2020-08-19] MEDS: GABAPENTIN 300 MG CAPSULE PO SCH ×3 (08:30→21:16)
[2020-08-19] MEDS: LACTOBACILLUS CHEW TABLET PO SCH ×3 (08:30→21:16)
[2020-08-19] MEDS: ACETAMINOPHEN 325 MG TABLET PO PRN ×2 (08:30→16:32)
[2020-08-19] MEDS: INDOMETHACIN 25 MG CAPSULE PO PRN ×2 (11:36→18:28)
[2020-08-19 12:53] VITALS: BP 166/86
[2020-08-19 19:15] VITALS: BP 174/102
[2020-08-19 20:18] VITALS: BP 125/77
[2020-08-19] MEDS: KETOROLAC 30 MG/1 ML IVPush PRN (21:16)
[2020-08-19] MEDS: ATORVASTATIN 40 MG TABLET PO SCH (21:16)
[2020-08-20 00:19] VITALS: BP 137/93
[2020-08-20] MEDS: KETOROLAC 30 MG/1 ML IVPush PRN ×3 (05:15→19:13)
[2020-08-20] MEDS: PANTOPRAZOLE 40MG TABLET PO SCH (05:15)
[2020-08-20] MEDS: ASPIRIN 81 MG TABLET EC PO SCH (05:15)
[2020-08-20 05:49] LABS: BASOPHILS % (AUTO) 1 % (0-1); EOSINOPHILS % (AUTO) 2 % (1-7); LYMPHOCYTES % (AUTO) 17 % (22-44); MEAN CORPUSCULAR HGB CONC 33.7 g/dL (33.2-36.2); MEAN PLATELET VOLUME 7.1 fL (7.4-10.4); MONOCYTES % (AUTO) 6 % (2-9); NEUTROPHILS % (AUTO) 75 % (42-75); PLATELET COUNT 209 x10^3/uL (130-400); RED BLOOD COUNT 4.02 x10^6/uL (4.38-5.82); RED CELL DISTRIBUTION WIDTH 15.4 % (9.4-14.8)
[2020-08-20 05:56] LABS: CHLORIDE 110 mmol/L (98-107)
[2020-08-20 05:59] LABS: MD NO
[2020-08-20 06:01] LABS: ANION GAP 7 mmol/L (5-15); CALCIUM 8.3 mg/dL (8.5-10.1)
[2020-08-20 07:14] VITALS: BP 132/79
[2020-08-20] MEDS ORDERED: MAGNESIUM SULFATE PMX 2GM/50ML 50 ML IV ONE (08:00)
[2020-08-20] MEDS: DIVALPROEX 500 MG TABLET.DR PO SCH ×2 (09:08→21:06)
[2020-08-20] MEDS: ACETAMINOPHEN 325 MG TABLET PO SCH ×3 (09:08→21:07)
[2020-08-20] MEDS: GABAPENTIN 300 MG CAPSULE PO SCH ×3 (09:08→21:07)
[2020-08-20] MEDS: LACTOBACILLUS CHEW TABLET PO SCH ×3 (09:08→21:06)
[2020-08-20] MEDS: METOPROLOL SUCCINATE 25 MG TAB.ER.24H PO SCH (09:08)
[2020-08-20] MEDS: SODIUM CHLORIDE 0.9% 1,000 ML IV SCH (09:09)
[2020-08-20 13:49] VITALS: BP 139/85
[2020-08-20 18:44] VITALS: BP 109/80
[2020-08-20] MEDS: ATORVASTATIN 40 MG TABLET PO SCH (21:07)
[2020-08-21 00:42] VITALS: BP 131/87
[2020-08-21] MEDS: KETOROLAC 30 MG/1 ML IVPush PRN ×4 (02:35→22:18)
[2020-08-21] MEDS: ACETAMINOPHEN 325 MG TABLET PO SCH ×4 (02:59→20:10)
[2020-08-21] MEDS: PANTOPRAZOLE 40MG TABLET PO SCH (05:27)
[2020-08-21] MEDS: ASPIRIN 81 MG TABLET EC PO SCH (05:27)
[2020-08-21 06:45] VITALS: BP 150/88
[2020-08-21] MEDS: METOPROLOL SUCCINATE 25 MG TAB.ER.24H PO SCH (08:46)
[2020-08-21] MEDS: GABAPENTIN 300 MG CAPSULE PO SCH ×3 (08:46→20:10)
[2020-08-21] MEDS: LACTOBACILLUS CHEW TABLET PO SCH ×3 (08:46→20:09)
[2020-08-21] MEDS: DIVALPROEX 500 MG TABLET.DR PO SCH ×2 (08:46→20:10)
[2020-08-21] MEDS: SODIUM CHLORIDE 0.9% 1,000 ML IV SCH (13:32)
[2020-08-21 13:53] VITALS: BP 155/96
[2020-08-21 18:46] VITALS: BP 131/77
[2020-08-21] MEDS: ATORVASTATIN 40 MG TABLET PO SCH (20:10)
[2020-08-22] VITALS (8 sets, daily range): BP systolic 132–194; BP diastolic 87–110
[2020-08-22] MEDS: ACETAMINOPHEN 325 MG TABLET PO SCH ×4 (02:39→21:38)
[2020-08-22] MEDS: PANTOPRAZOLE 40MG TABLET PO SCH (05:02)
[2020-08-22] MEDS: SODIUM CHLORIDE 0.9% 1,000 ML IV SCH (05:02)
[2020-08-22] MEDS: ASPIRIN 81 MG TABLET EC PO SCH (05:02)
[2020-08-22] MEDS: KETOROLAC 30 MG/1 ML IVPush PRN ×3 (05:08→19:40)
[2020-08-22] MEDS: LACTOBACILLUS CHEW TABLET PO SCH ×3 (08:51→21:39)
[2020-08-22] MEDS: GABAPENTIN 300 MG CAPSULE PO SCH ×3 (08:51→21:39)
[2020-08-22] MEDS: DIVALPROEX 500 MG TABLET.DR PO SCH ×2 (08:51→21:39)
[2020-08-22] MEDS ORDERED: METOPROLOL SUCCINATE 25 MG TAB.ER.24H PO SCH (09:00)
[2020-08-22] MEDS: METOPROLOL SUCCINATE 50 MG TAB.ER.24H PO SCH (19:40)
[2020-08-22] MEDS: ATORVASTATIN 40 MG TABLET PO SCH (21:39)
[2020-08-22] MEDS ORDERED: hydrALAzine 20 MG/ML, 1ML IV PRN (22:00)
[2020-08-23 00:36] VITALS: BP 158/93
[2020-08-23] MEDS: KETOROLAC 30 MG/1 ML IVPush PRN ×4 (01:43→21:21)
[2020-08-23] MEDS: ACETAMINOPHEN 325 MG TABLET PO SCH ×4 (03:40→21:22)
[2020-08-23] MEDS: PANTOPRAZOLE 40MG TABLET PO SCH (05:26)
[2020-08-23] MEDS: ASPIRIN 81 MG TABLET EC PO SCH (05:26)
[2020-08-23 06:58] VITALS: BP 147/85
[2020-08-23] MEDS: SODIUM CHLORIDE 0.9% 1,000 ML IV SCH ×2 (07:30→10:16)
[2020-08-23] MEDS: AMLODIPINE 5 MG TABLET PO SCH (08:17)
[2020-08-23] MEDS: LACTOBACILLUS CHEW TABLET PO SCH ×3 (08:17→21:21)
[2020-08-23] MEDS: DIVALPROEX 500 MG TABLET.DR PO SCH ×2 (08:17→21:21)
[2020-08-23] MEDS: GABAPENTIN 300 MG CAPSULE PO SCH ×3 (08:17→21:21)
[2020-08-23] MEDS ORDERED: AMLODIPINE 2.5 MG TABLET PO SCH (09:00)
[2020-08-23] MEDS ORDERED: LISINOPRIL 10 MG TABLET PO SCH (09:00)
[2020-08-23 14:02] VITALS: BP 157/76
[2020-08-23 18:36] VITALS: BP 165/91
[2020-08-23] MEDS ORDERED: LISINOPRIL 20 MG TABLET PO SCH (21:00)
[2020-08-23] MEDS: METOPROLOL SUCCINATE 50 MG TAB.ER.24H PO SCH (21:21)
[2020-08-23] MEDS: ATORVASTATIN 40 MG TABLET PO SCH (21:21)
[2020-08-24 00:48] VITALS: BP 147/87
[2020-08-24] MEDS: SODIUM CHLORIDE 0.9% 1,000 ML IV SCH (01:57)
[2020-08-24] MEDS: ACETAMINOPHEN 325 MG TABLET PO SCH ×3 (03:16→15:11)
[2020-08-24] MEDS: KETOROLAC 30 MG/1 ML IVPush PRN ×2 (03:16→09:25)
[2020-08-24] MEDS: PANTOPRAZOLE 40MG TABLET PO SCH (05:44)
[2020-08-24] MEDS: ASPIRIN 81 MG TABLET EC PO SCH (05:44)
[2020-08-24] MEDS: HEPARIN 5,000 UNITS/ML, 1ML SQ SCH ×2 (08:14→16:43)
[2020-08-24] MEDS: LACTOBACILLUS CHEW TABLET PO SCH ×2 (09:03→16:42)
[2020-08-24] MEDS: DIVALPROEX 500 MG TABLET.DR PO SCH (09:04)
[2020-08-24] MEDS: AMLODIPINE 5 MG TABLET PO SCH (09:04)
[2020-08-24] MEDS: GABAPENTIN 300 MG CAPSULE PO SCH ×2 (09:04→16:42)
[2020-08-24 09:22] VITALS: BP 121/80
[2020-08-24] MEDS ORDERED: OMNIPAQUE 350 MG/ML, 75ML BOTTLE ONE (10:46)
[2020-08-24] MEDS ORDERED: LISI-170 PO (11:09)
[2020-08-24] MEDS ORDERED: ACID1TAB7 PO (11:09)
[2020-08-24] MEDS ORDERED: METO-93 PO (11:09)
[2020-08-24] MEDS ORDERED: AMLO-150 PO (11:09)
[2020-08-24] MEDS ORDERED: IBUP-1222 PO (11:10)
[2020-08-24] MEDS ORDERED: ACET325T26 PO (11:10)
[2020-08-24] MEDS ORDERED: SODI126M NAS (11:19)
[2020-08-24] MEDS ORDERED: IBUPROFEN 600 MG TABLET PO PRN (12:30)
[2020-08-24 15:59] VITALS: BP 133/81
== END 2020-08-24 17:03 | DRG 556 ==
LOC: ED 18:17 → EDIP 08-19 00:26 → INTOOBSV 08-19 00:26 → OBSVTOIN 08-19 00:26 → INTOOBSV 08-19 00:31 → 3N 08-19 01:09
PROVIDERS: ATTEND Internal Medicine
DX: M62.838 Other muscle spasm (principal); E83.42 Hypomagnesemia; F17.210 Nicotine dependence, cigarettes, uncomplicated; G40.909 Epilepsy, unspecified, not intractable, without status epilepticus; G89.29 Other chronic pain; I10 Essential (primary) hypertension; J32.0 Chronic maxillary sinusitis; Z98.1 Arthrodesis status; K21.9 Gastro-esophageal reflux disease without esophagitis; M54.9 Dorsalgia, unspecified; R26.0 Ataxic gait; R53.81 Other malaise; Z71.6 Tobacco abuse counseling; Z88.5 Allergy status to narcotic agent; Z59.0 Homelessness
CPT/HCPCS: 36415; 70460; 80048; 80307; 80320; 81001; 82550; 83735; 85025; 87077; 87086; 87147; 87186; 96361; 96365; 99285; 99406; G0378; J1644; J1885; Q9967; G0480; J0360; J2060; J3475; J7030

== ENCOUNTER 2020-10-19 23:08 | Emergency (ER) | payer MEDICAID ==
[~2020-10-19] VITALS: Ht 180.3 cm; Wt 93.0 kg
[~2020-10-19 23:08] MED LIST changes: +ACET325T26 PO; +ACID1TAB7 PO; +AMLO-150 PO; +LISI-170 PO; +METO-93 PO; +SODI126M NAS
[2020-10-20] MEDS ORDERED: SODIUM CHLORIDE FLUSH 10ML SYR IVF ONE
[2020-10-20] MEDS ORDERED: MORPHINE SULFATE 4 MG/ML, 1ML IVPush PRN
[2020-10-20] MEDS ORDERED: SODIUM CHLORIDE 0.9% 1,000ML IVBOLUS ONE
[2020-10-20] MEDS ORDERED: ONDANSETRON 2MG/ML, 2ML IVPush ONE
[2020-10-20] MEDS ORDERED: LORazepam 2 MG/ML, 1ML IVPush ONE
[2020-10-20] MEDS ORDERED: ONDANSETRON 2MG/ML, 2ML ONE
[2020-10-20] MEDS ORDERED: MORPHINE SULFATE 4 MG/ML, 1ML ONE (00:01)
[2020-10-20] MEDS ORDERED: LORazepam 2 MG/ML, 1ML ONE (00:01)
[2020-10-20 00:15] LABS: BASOPHILS % (AUTO) 1 % (0-1); EOSINOPHILS % (AUTO) 2 % (1-7); LYMPHOCYTES % (AUTO) 25 % (22-44); MEAN CORPUSCULAR HEMOGLOBIN 33.4 pg (27.5-34.5); MEAN CORPUSCULAR HGB CONC 34.2 g/dL (33.2-36.2); MEAN PLATELET VOLUME 7.3 fL (7.4-10.4); MONOCYTES % (AUTO) 11 % (2-9); NEUTROPHILS % (AUTO) 61 % (42-75); PLATELET COUNT 314 x10^3/uL (130-400); RED CELL DISTRIBUTION WIDTH 15.1 % (9.4-14.8)
[2020-10-20 00:23] LABS: ALANINE AMINOTRANSFERASE 60 U/L (12-78); ALBUMIN 3.3 g/dL (3.4-5.0); ANION GAP 6 mmol/L (5-15); CALCIUM 8.8 mg/dL (8.5-10.1); CHLORIDE 109 mmol/L (98-107); CREATININE 0.83 mg/dL (0.7-1.3)
[2020-10-20 00:25] LABS: ALKALINE PHOSPHATASE 175 U/L (45-117); BILIRUBIN,TOTAL 0.4 mg/dL (0.2-1.0); TOTAL PROTEIN 7.9 g/dL (6.4-8.2)
[2020-10-20] MEDS ORDERED: HYDROcodone/APAP 10/325 MG TABLET ONE (03:09)
--- NOTE | 2020-10-20 03:27 | NUR ---
TASK RN: THIS RN IN TO MEDICATE PT. AND PROVIDE D/C INSTRUCTIONS. UPON ENTERING ROOM PT. IMMEDIATLY STARTED SHOUTING AT RN "IT'S ABOUT DANM TIME YOU SHOW UP!". DISCUSSED WITH PT. MED ORDERED BY . PT. BECAME VERY ANGRY, SHOUTING "YOU FUCKING IDIOT, I JUST GOT MORPHINE AND YOU THINK A FUCKING NORCO IS GOING TO HELP ME." PT. REFUSED NORCO INITIALLY. PT. CONTINUED WITH VERBALLY AGRESSIVE SPEECH. "I'LL TAKE MY OWN FUCKING IV OUT AND SAVE MYSELF $5, YOU JUST WASTED 3 HOURS OF MY FUCKING TIME." OFFERED PT. W/C TO D/C DESK TO WHICH PT. STATED "I'LL JUST USE MY CANE AND I'LL BE THE HAPPIEST MOTHER FUCKER IN HERE IF I KISS THE FLOOR." A LOT OF VERBAL RE-ASSURANCE AND KINDNESS OFFERED BY THIS RN: PT. DID AGREE FINALLY TO TAKE THE NORCO AND THE W/C TO DC DESK. PT. WAS ABLE TO AMBUALTE WITH PERSONAL CANE INTO GRIFFIN TO THE W/C. PT. PROVIDED WITH CAB VOUCHER FOR SAFE D/C HOME.
[2020-10-20] MEDS ORDERED: HYDROcodone/APAP 10/325 MG TABLET PO ONE (03:30)
[2020-10-20 03:32] VITALS: BP 155/102
== END 2020-10-20 03:35 | disposition home or self-care (01) ==
LOC: ED 10-20 03:30
DX: G43.009 Migraine without aura, not intractable, without status migrainosus (principal); F17.210 Nicotine dependence, cigarettes, uncomplicated; R00.0 Tachycardia, unspecified; I25.2 Old myocardial infarction; I10 Essential (primary) hypertension; I25.10 Atherosclerotic heart disease of native coronary artery without angina pectoris; M10.9 Gout, unspecified; Z86.73 Personal history of transient ischemic attack (TIA), and cerebral infarction without residual deficits
CPT/HCPCS: 36415; 70450; 80053; 80320; 85025; 96374; 96375; 99284; 99406; J2060; J2270; J2405; J7030; G0480

== ENCOUNTER 2020-10-23 16:32 | Emergency (ER) | payer MEDICAID ==
[~2020-10-23] VITALS: Ht 180.3 cm; Wt 94.0 kg
[2020-10-23 17:42] LABS: BASOPHILS % (AUTO) 1 % (0-1); EOSINOPHILS % (AUTO) 2 % (1-7); LYMPHOCYTES % (AUTO) 19 % (22-44); MEAN CORPUSCULAR HEMOGLOBIN 32.6 pg (27.5-34.5); MEAN CORPUSCULAR HGB CONC 33.6 g/dL (33.2-36.2); MEAN PLATELET VOLUME 7.6 fL (7.4-10.4); MONOCYTES % (AUTO) 9 % (2-9); NEUTROPHILS % (AUTO) 70 % (42-75); PLATELET COUNT 392 x10^3/uL (130-400); RED BLOOD COUNT 3.73 x10^6/uL (4.38-5.82); RED CELL DISTRIBUTION WIDTH 15.3 % (9.4-14.8)
--- NOTE | 2020-10-23 17:44 | NUR ---
heel cover softener: Pt ambulatory to room from lobby at this time.
[2020-10-23 17:53] LABS: ALBUMIN 3.2 g/dL (3.4-5.0); ANION GAP 9 mmol/L (5-15); CALCIUM 9.2 mg/dL (8.5-10.1); CHLORIDE 108 mmol/L (98-107); CREATININE 0.83 mg/dL (0.7-1.3)
--- NOTE | 2020-10-23 17:59 | NUR ---
ERP IN TO ASSESS.
--- NOTE | 2020-10-23 18:16 | NUR ---
US AT BS.
[2020-10-23] MEDS ORDERED: DEXAMETHASONE 4 MG TABLET ONE (18:27)
[2020-10-23] MEDS ORDERED: METHOCARBAMOL 750 MG TABLET ONE (18:27)
[2020-10-23] MEDS ORDERED: KETOROLAC 60 MG/2 ML ONE (18:28)
[2020-10-23] MEDS ORDERED: KETOROLAC 30 MG/1 ML IM ONE (18:30)
[2020-10-23] MEDS ORDERED: METHOCARBAMOL 750 MG TABLET PO ONE (18:30)
[2020-10-23] MEDS ORDERED: DEXAMETHASONE 4 MG TABLET PO ONE (18:30)
--- NOTE | 2020-10-23 18:39 | NUR ---
PT MEDICATED PER ERP ORDER FOR LLE PAIN RATED 10/10, KELLER, BLE PAIN. PT ON ALL ROOM MONITORING. VS UPDATED. CALL LIGHT WITHIN REACH.
--- NOTE | 2020-10-23 18:52 | NUR ---
Report from Cinthia GRANADO
[2020-10-23 20:50] VITALS: BP 143/97
--- NOTE | 2020-10-23 21:04 | NUR ---
Pt given discharge instructions, verbalized understanding, able to dress self fully, educated on how to call MTM for safe discharge
== END 2020-10-23 21:26 | disposition home or self-care (01) ==
LOC: ED 20:45
DX: M10.062 Idiopathic gout, left knee (principal); M10.061 Idiopathic gout, right knee; M13.822 Other specified arthritis, left elbow; R60.0 Localized edema; R00.0 Tachycardia, unspecified; I10 Essential (primary) hypertension; J44.9 Chronic obstructive pulmonary disease, unspecified; I25.10 Atherosclerotic heart disease of native coronary artery without angina pectoris; F17.200 Nicotine dependence, unspecified, uncomplicated
CPT/HCPCS: 36415; 80048; 82040; 85025; 93005; 93970; 96372; 99285; J1885

== ENCOUNTER 2020-11-27 21:48 | Emergency (ER) | payer MEDICAID ==
[~2020-11-27] VITALS: Ht 182.9 cm; Wt 86.5 kg
[2020-11-27 21:52] VITALS: BP 115/69
--- NOTE | 2020-11-27 23:47 | NUR ---
PT MOVED TO ROOM 43A IN NO ACUTE DISTRESS, AND ON O2 NC 2LPM AND ALSO ON O2 SAT PROBE OF 98%. PT IN NO DISTRESS AND TO BE MTF
--- NOTE | 2020-11-28 02:00 | NUR ---
PT GOT UP AND MOVED HIMSELF TO THE END OF THE BED AND USED THE URINAL BY HIMSELF AND STEADILY. WILL RE-EVALUATE FOR DC SOON.
--- NOTE | 2020-11-28 02:49 | NUR ---
PT SLEEPING AT THIS TIME. NO ACUTE DISTRESS.
--- NOTE | 2020-11-28 03:14 | NUR ---
PT AWAKE AND LYING IN BED. PT ASKED IF HE'S READY TO LEAVE AND SAID YES, HE'S GOOD TO GO. PT STOOD UP FOR ROAD TEST AND IS STEADY AND ABLE TO WALK. PT A&OX4, NO ACUTE DISTRESS, AND AMBULATING TO THE DISCHARGE DESK. F/U AND D/C INSTRUCTIONS GIVEN TO PT AND A BUS PASS PROVIDED ON REQUEST TO THE PT, AND HE V/U. PT AMBULATED OUT OF THE ER.
== END 2020-11-28 03:24 | disposition home or self-care (01) ==
LOC: ED 23:50
DX: F10.120 Alcohol abuse with intoxication, uncomplicated (principal); I10 Essential (primary) hypertension; I25.10 Atherosclerotic heart disease of native coronary artery without angina pectoris; M10.9 Gout, unspecified; J44.9 Chronic obstructive pulmonary disease, unspecified; I25.2 Old myocardial infarction; G43.909 Migraine, unspecified, not intractable, without status migrainosus; Z86.73 Personal history of transient ischemic attack (TIA), and cerebral infarction without residual deficits; Y90.0 Blood alcohol level of less than 20 mg/100 ml
CPT/HCPCS: 99283

== ENCOUNTER 2020-12-23 01:20 | Emergency (ER) | payer MEDICAID ==
[~2020-12-23] VITALS: Ht 180.3 cm; Wt 91.0 kg
--- NOTE | 2020-12-23 01:52 | NUR ---
markos todd at bedside for eval
[2020-12-23] MEDS ORDERED: ACETAMINOPHEN 500 MG TABLET PO ONE (02:00)
[2020-12-23] MEDS ORDERED: ONDANSETRON ODT 4 MG PO ONE (02:00)
[2020-12-23] MEDS ORDERED: ACETAMINOPHEN 500 MG TABLET ONE (02:19)
[2020-12-23] MEDS ORDERED: ONDANSETRON ODT 8 MG ONE (02:20)
--- NOTE | 2020-12-23 02:39 | NUR ---
RECIEVED REPORT FROM DORIS GRANADO
--- NOTE | 2020-12-23 02:48 | NUR ---
Patient is resting comfortably in bed. Bed in lowest, rails engaged, call light on lap. TM.
[2020-12-23 02:51] LABS: ANION GAP 6 mmol/L (5-15); CALCIUM 9.6 mg/dL (8.5-10.1); CHLORIDE 106 mmol/L (98-107); CREATININE 0.84 mg/dL (0.7-1.3)
[2020-12-23 02:54] LABS: BASOPHILS % (AUTO) 2 % (0-1); EOSINOPHILS % (AUTO) 3 % (1-7); LYMPHOCYTES % (AUTO) 23 % (22-44); MEAN CORPUSCULAR HEMOGLOBIN 32.4 pg (27.5-34.5); MEAN CORPUSCULAR HGB CONC 33.3 g/dL (33.2-36.2); MEAN PLATELET VOLUME 7.4 fL (7.4-10.4); MONOCYTES % (AUTO) 7 % (2-9); NEUTROPHILS % (AUTO) 65 % (42-75); PLATELET COUNT 337 x10^3/uL (130-400); RED CELL DISTRIBUTION WIDTH 15.7 % (9.4-14.8)
[2020-12-23] MEDS ORDERED: OMNIPAQUE 350 MG/ML, 100ML BOTTLE ONE (03:32)
--- NOTE | 2020-12-23 03:53 | NUR ---
Patient is resting comfortably in bed. Bed in lowest, rails engaged, call light on lap. TM.
[2020-12-23] MEDS ORDERED: KETOROLAC 30 MG/1 ML IVPush ONE (04:00)
[2020-12-23] MEDS ORDERED: KETOROLAC 30 MG/1 ML ONE (04:10)
[2020-12-23 04:50] VITALS: BP 99/64
--- NOTE | 2020-12-23 04:51 | NUR ---
Patient is resting comfortably in bed. Bed in lowest, rails engaged, call light on lap. TM.
--- NOTE | 2020-12-23 05:02 | NUR ---
Patient given discharge instructions and they have confirmed that they understand the instructions. Patient ambulatory with steady gait. NAD, all questions answered appropriately, denies additional needs at this time. No personal belongings left in room after discharge.
== END 2020-12-23 05:18 | disposition home or self-care (01) ==
LOC: ED 01:42
DX: G43.909 Migraine, unspecified, not intractable, without status migrainosus (principal); I10 Essential (primary) hypertension; F17.210 Nicotine dependence, cigarettes, uncomplicated; I25.10 Atherosclerotic heart disease of native coronary artery without angina pectoris; J44.9 Chronic obstructive pulmonary disease, unspecified; I25.2 Old myocardial infarction; Z86.73 Personal history of transient ischemic attack (TIA), and cerebral infarction without residual deficits
CPT/HCPCS: 36415; 70450; 70496; 70498; 80048; 85025; 85730; 93005; 99285; Q9967